=== PATIENT | female | born 1970 | race Caucasian/White ===

== ENCOUNTER 2017-01-09 10:38 | Emergency (ER) | payer OTHER ==
[~2017-01-09] VITALS: Ht 172.7 cm; Wt 123.6 kg
[~2017-01-09 10:38] MED LIST: CHOL5000 PO; LEVO300T2 PO; METO25TA6 PO; MULT-1018 PO; OMEP20TA86 PO
[2017-01-09 10:40] VITALS: BP 186/107; RESP 18; O2SAT 96
--- NOTE | 2017-01-09 10:51 | ED.REPORT ---
HPI-Sore Throat ONLY HPI/PE done Jan 09, 2017 ED Provider: Dr. Jose Castillo D.O. A 46 year old female with a medical history including Kikuchi syndrome, Ann syndrome, hypertension, and a non-malignant right submandibular node presents to the ED with a sore throat onset yesterday. Associated symptoms include ear pressure and hoarse speech. She has had similar symptoms in the past, successfully treated with IV Decadron and Benadryl. Previous similar infections have quickly escalated and resulted in the patient being intubated. Nursing Notes Stated Complaint: THROAT PAIN Chief Complaint: ENT & Mouth Nursing Notes Reviewed: Yes Allergies: Coded Allergies: dexamethasone (Verified Adverse Reaction, Intermediate, 05/17/16) RASH AND ITCH-NEED PREMED WITH BENADRYL IF RECEIVING. methylprednisolone (Verified Adverse Reaction, Intermediate, HIVES, ) promethazine (Verified Adverse Reaction, Intermediate, NAUSEA AND VOMITTING, 05/17/16) Scheduled Cholecalciferol (Vitamin D3) (Vitamin D3) 5,000 Unit Capsule 5,000 UNIT PO DAILY Levothyroxine (Synthroid) 300 Mcg Tablet 300 MCG PO DAILY Metoprolol Tartrate (Metoprolol Tartrate) 25 Mg Tablet 12.5 MG PO BID Multivitamin (Multi Vitamin Daily) 1 Each Tablet 1 EACH PO DAILY Omeprazole (Omeprazole) 20 Mg Tablet.dr 20 MG PO DAILY General Time Seen by MD: 10:50 Chief Complaint Sore throat Hx Obtained From: Patient Arrived By: Walk-in Onset Occurred: Yesterday Symptom Duration: Since onset Location: : Tonsil left: Tonsil right Quality: Painful Severity: Current: Moderate Severity: Maximum: Moderate Associated with: Reports: Ear pain/ache (Pressure), Denies: Fever Pertinent Negative: Relieved by nothing Related History: Reports: Adenoidectomy, Immunocompromise, Tonsillectomy Context: Immunization Status General: Unknown Recent Healthcare: No recent doctor visit Similar Sx Previous: Yes Past Medical History Past Medical History 1. Hyperlipidemia. 2. 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 3. Paralyzed right vocal cord. 4. 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 Hypertension 8. Right Submandibular Node, negative for malignancy. Past Surgical History 1. Appendectomy. 2. Total abdominal hysterectomy. 3. Tonsillectomy. 4. Thyroidectomy. Family History Mother who is living with previous [place] 3 earliest age 21 years of age, CVA 3, and cardiac arrest. Father with diabetes mellitus diagnosed in his 70s. Smoking History Never Smoker Social History Alcohol Use: Denies alcohol use Drug Use: Denies drug use Other Social History: Good social support, , Local resident Ambulatory Status Independent Review of Systems Constitutional: Denies: Fever Ears / Nose / Throat: Reports: Earache bilateral (Pressure), Sore throat, Voice change (Hoarse) Respiratory: Denies: Shortness of breath GI: Denies: Vomiting Complete sys rev & neg: except as marked. Physical Exam Initial Vital Signs Vital Signs (First) Date Time Temp Pulse Resp B/P Pulse Ox O2 Delivery O2 Flow Rate FiO2 01/09/17 10:40 36.9 103 18 186/107 96 01/09/17 11:57 Room Air Initial VS: Reviewed Respiratory: Breath sounds normal, Clear to auscultation, No respiratory distress Cardiovascular: Regular rate & rhythm, Heart sounds normal Abdomen / GI: Soft, Non-tender Skin: Warm, Dry, No cyanosis Neurologic: Alert, Oriented, Nonfocal Psychiatric: Mood/affect normal, Behavior normal, Normal thought content General/Constitutional: Awake, Alert, No acute distress ENT: Airway patent, Mucous membranes moist Pharynx / Tonsils / Uvula: Positive: Pharyngeal erythema Right Ear / Mastoid: Positive: Fluid behind TM clear Hoarse voice Head / Eyes: Atraumatic, Normocephalic Right lid lag secondary to Ann syndrome Interpretation & Diagnostics Lab Results Interpretation Result Diagram: 01/09/17 1055 01/09/17 1055 Test 01/09/17 10:55 White Blood Count 5.9th/mm3 (3.8-10.1) Red Blood Count 4.36mil/mm3 (3.90-5.20) Hemoglobin 13.1g/dL (12.0-15.6) Hematocrit 39.3% (35.0-46.0) Mean Corpuscular Volume 90.1fL (81-100) Mean Corpuscular Hemoglobin 30.0pg (27.0-35.0) Mean Corpuscular Hemoglobin Concent 33.3% (32.0-37.0) Red Cell Distribution Width 13.1% (12.3-15.4) Platelet Count 250bil/L (150-400) Neutrophils (%) (Auto) 57.7% (40-74) Lymphocytes (%) (Auto) 34.1% (14-46) Monocytes (%) (Auto) 5.8% (4-12) Eosinophils (%) (Auto) 1.7% (0-5) Basophils (%) (Auto) 0.5% (0-3) Sodium Level 139mEq/L (134-144) Potassium Level 3.6mEq/L (3.5-5.2) Chloride Level 100mEq/L (97-108) Carbon Dioxide Level 26mmol/L (18-29) Blood Urea Nitrogen 9mg/dL (6-24) Creatinine 0.59mg/dL (0.57-1.00) Estimat Glomerular Filtration Rate 157mL/min (>59) Glucose Level 168mg/dL (60-99) Calcium Level 8.1mg/dL (8.5-10.1) Total Bilirubin 0.5mg/dL (0.0-1.2) Aspartate Amino Transf (AST/SGOT) 38U/L (0-50) Alanine Aminotransferase (ALT/SGPT) 53U/L (0-32) Alkaline Phosphatase 74U/L (25-150) C-Reactive Protein 0.7mg/dL (0.0-0.5) Total Protein 7.2g/dL (6.4-8.4) Albumin 4.1g/dL (3.4-5.0) Hold Lund Top Tube Received (Received) X-Ray Interpretation Xray Interpretation: IMPRESSION: No apparent compromise of the airway. No soft tissue mass demonstrated. No foreign body seen. Dictated by: Varun Francis M.D. on 01/09/2017 at 11:45 Study Performed: 2 View X-Ray Ordered: Neck (Soft Tissue) Interpretation / Wet Read by: Interpret - Radiologist Re-Eval/Medical Decision Source of Hx: Old records Re-Evaluation/Progress : Time of Eval: 12:44 Patient Status: Condition improved Re-Evaluation/Progress Note: Patient looks and feels better. Her voice is sharper. Discussed with patient x-ray and lab results, diagnosis, and plan for discharge. Follow-up and return to the ER instructions given. Patient agrees with plan for care and all questions were addressed. Counseled Regarding: Diagnosis, Lab results, Need for follow-up, When/why to return to ED Discharge & Departure Primary Impression: Pharyngitis Pharyngitis/tonsillitis etiology: unspecified etiology Qualified Code: J02.9 - Acute pharyngitis, unspecified Additional Impression: Kikuchi disease Disposition: Home Discharge Condition All VS Reviewed: Yes Condition: Stable Patient Instructions: Pharyngitis (ED) Additional Instructions: Thank you for entrusting us with your care. Please take Augmentin twice daily for ten days, as prescribed. Use the Medrol pack as directed. Premedicate with Benadryl to prevent associated itching. 1-2 Percocet every six hours as needed for pain. Do not drink alcohol, drive, or consume acetaminophen while taking Percocet. Call your Ear, Nose, and Throat surgeon tomorrow for a close follow-up. Call your primary care provider for a follow-up appointment. Return to the ER with any new or worsening symptoms. Your blood pressure was elevated today. Continue taking your blood pressure medication as directed. Keep a close eye on your blood pressure and follow-up with your doctor. You may need your medication or dosage adjusted. Referrals: OTHER,PHYSICIAN (PCP) Emanuel Bales MD Attestation Portions of this note were transcribed by Abby Mao. I, Dr. Castillo, personally performed the history, physical exam, and medical decision-making; I reviewed and confirmed the accuracy of the information in the transcribed note. Signed by: Aide Iglesias, 01/09/2017, 13:03 copies to: Emanuel Bales MD, Todd P DO Jan 09, 2017 10:51 ABBY MAO Jan 09, 2017 11:03
[2017-01-09] MEDS ORDERED: cefTRIAXone Inj 2,000 MG in Dextrose 5% Minibag Plus 50 ML IV ONE (11:00)
[2017-01-09] MEDS ORDERED: Dexamethasone Inj 10 MG in 0.9% Sodium Chloride-Pha MIX 50 ML IV ONE (11:00)
[2017-01-09 11:07] LABS: BASOPHILS % (AUTO) 0.5 % (0-3); EOSINOPHILS % (AUTO) 1.7 % (0-5); MONOCYTES % (AUTO) 5.8 % (4-12); Mean Corpuscular Volume 90.1 fL (81-100); NEUTROPHILS % (AUTO) 57.7 % (40-74); Platelet Count 250 bil/L (150-400)
[2017-01-09] MEDS: HYDROmorphone 0.5 mg/0.5 mL iSecure Syringe IVPUSH PRN ×2 (11:16→13:32)
--- NOTE | 2017-01-09 11:47 | DRSVH ---
PROCEDURE: X-RAY NECK SOFT TISSUE ([id number]) INDICATIONS: sore throat, prior neck surgery TECHNIQUE: 2 views of the neck were acquired. COMPARISON: None. FINDINGS: Airway: The airway appears patent. Soft tissues: Prevertebral soft tissues are normal in thickness. The epiglottis and aryepiglottic f olds appear normal. No soft tissue gas. Bones: No suspicious bony lesions. Visualized cervical spine is normally aligned. IMPRESSION: No apparent compromise of the airway. No soft tissue mass demonstrated. No foreign body s een. Dictated by: Varun Francis M.D. on 01/09/2017 at 11:45 Approved by: Varun Francis M.D. on 01/09/2017 at 11:46
[2017-01-09 11:57] VITALS: BP 152/94; PULSE 93; RESP 16; O2SAT 97
[2017-01-09] MEDS ORDERED: MeTOProlol 1 mg/mL 5 mL Inj IVPUSH SCH (12:30)
[2017-01-09 13:32] VITALS: BP 130/80; PULSE 74; RESP 16; O2SAT 96
== END 2017-01-09 12:54 | disposition home or self-care (01) ==
LOC: SED 10:38
DX: J02.9 Acute pharyngitis, unspecified (principal); I88.1 Chronic lymphadenitis, except mesenteric; I10 Essential (primary) hypertension; E78.5 Hyperlipidemia, unspecified; Z88.8 Allergy status to other drugs, medicaments and biological substances
CPT/HCPCS: 36415; 70360; 80053; 85025; 86140; 96365; 96375; 99285; J0696; J1100; J1170; J1200

== ENCOUNTER 2017-01-14 14:07 | Inpatient (IN) | payer OTHER ==
[~2017-01-14] VITALS: Ht 172.7 cm; Wt 124.4 kg
[2017-01-14 14:13] VITALS: BP 144/95; RESP 20; O2SAT 96
[2017-01-14] MEDS ORDERED: 0.9% Sodium Chloride 1,000 ML IV ONE (15:45)
[2017-01-14] MEDS ORDERED: Dexamethasone Inj 10 MG in 0.9% Sodium Chloride-Pha MIX 50 ML IV ONE (15:45)
[2017-01-14] MEDS ORDERED: Ampicillin-Sulbactam Inj 3,000 MG in 0.9% Sodium Chloride 100 ML IV ONE (15:45)
--- NOTE | 2017-01-14 15:45 | ED.REPORT ---
HPI-General Illness Date of Service Jan 14, 2017 ED Provider: Gabriel Blum MD Pt is a 46 y/o female w/ a hx of Kikuchi syndrome (necrotizing lymphadenitis) , Ann syndrome, hypertension, presenting to the ED c/o right-sided jaw/ facial pain and swelling onset 5 days ago. Of note, the pt had a tonsillectomy and biopsy performed in July 2016 which was benign. She was seen here in the ED on 01/09/[address] Castillo and diagnosed with pharyngitis and started on Decadron and Augmentin which she states normally resolves her symptoms. She has been taking these medications as directed and has not noticed much improvement. Her throat condition has required intubation multiple times in the past and normally progresses quite quickly. She denies fever, dysphagia, or trouble breathing at this time. The pt is seen by ENT physician Dr. Berkowitz at . Nursing Notes Stated Complaint: RIGHT SIDE JAW PAIN Chief Complaint: ENT & Mouth Nursing Notes Reviewed: Yes Allergies: Coded Allergies: dexamethasone (Verified Adverse Reaction, Intermediate, 05/17/16) RASH AND ITCH-NEED PREMED WITH BENADRYL IF RECEIVING. methylprednisolone (Verified Adverse Reaction, Intermediate, HIVES, ) promethazine (Verified Adverse Reaction, Intermediate, NAUSEA AND VOMITTING, 05/17/16) Scheduled Ascorbic Acid (Vitamin C) 1,000 Mg Tab.chew 1,000 MG PO DAILY Cholecalciferol (Vitamin D3) (Vitamin D3) 5,000 Unit Capsule 5,000 UNIT PO DAILY Hydrochlorothiazide (Hydrochlorothiazide) 25 Mg Tablet 25 MG PO DAILY Levothyroxine (Synthroid) 300 Mcg Tablet 300 MCG PO DAILY Metoprolol Tartrate (Metoprolol Tartrate) 25 Mg Tablet 25 MG PO BID Multivitamin (Multi Vitamin Daily) 1 Each Tablet 1 EACH PO DAILY Omeprazole (Omeprazole) 20 Mg Tablet.dr 20 MG PO DAILY General Time Seen by MD: 15:16 Chief Complaint Other (Facial swelling/pain) Hx Obtained From: Patient, Spouse Arrived By: Walk-in Sudden in Onset?: No Onset Occurred: 5 days ago Symptom Duration: Since onset Location: : Face: Neck Quality: Painful Severity: Current: Mild Severity: Maximum: Mild Recent Healthcare: Recent doctor visit, Previous diagnosis, Prior workup Similar Sx Previous: Yes Past Medical History Past Medical History Notes: The pt is seen by ENT physician Dr. Berkowitz at . Past Medical History 1. Hyperlipidemia. 2. 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 Hypertension 8. Right Submandibular Node, negative for malignancy. Past Surgical History 1. Appendectomy. 2. Total abdominal hysterectomy. 3. Tonsillectomy - with biopsy - benign 4. Thyroidectomy. Family History Mother who is living with previous [place] 3 earliest age 21 years of age, CVA 3, and cardiac arrest. Father with diabetes mellitus diagnosed in his 70s. Smoking History Never Smoker Social History Alcohol Use: Denies alcohol use Drug Use: Denies drug use Other Social History: Good social support, , Local resident Ambulatory Status Independent Review of Systems + Right-sided facial and jaw swelling and pain Full Review of Systems Constitutional: Denies: Chills, Fever Respiratory: Denies: Shortness of breath GI: Denies: Dysphagia Complete sys rev & neg: except as marked. Physical Exam Vital Signs Vital Signs Date Time Temp Pulse Resp B/P Pulse Ox O2 Delivery O2 Flow Rate FiO2 01/14/17 14:13 36.0 88 20 144/95 96 Room Air Initial VS: Reviewed, Vital signs normal Respiratory: Breath sounds normal, Clear to auscultation, No respiratory distress Cardiovascular: Regular rate & rhythm, Heart sounds normal, Intact distal pulses Abdomen / GI: Soft, Non-tender Extremities: Vascular intact, Neuro intact, No swelling, No tenderness Skin: Warm, Dry, No cyanosis Neurologic: Alert, Oriented, Nonfocal Psychiatric: Mood/affect normal, Behavior normal, Normal thought content General/Constitutional: Awake, Alert, No acute distress, Cooperative, Not toxic appearing Head / Eyes: Atraumatic, Normocephalic, PERRL Swelling on right side of face with tenderness which extends up into the zygoma. Mild warmth ENT: Atraumatic, Airway patent, Mucous membranes moist, Pharynx NL, Gums/ dentition NL Absent first molar on right lower. Neck: Atraumatic, Supple, No meningismus, Full range of motion Postoperative changes on the neck, right more prominent than left. Interpretation & Diagnostics Lab Results Interpretation Result Diagram: 01/14/17 1602 01/14/17 1602 Test 01/14/17 16:02 White Blood Count 12.1th/mm3 (3.8-10.1) Red Blood Count 4.77mil/mm3 (3.90-5.20) Hemoglobin 14.4g/dL (12.0-15.6) Hematocrit 43.0% (35.0-46.0) Mean Corpuscular Volume 90.1fL (81-100) Mean Corpuscular Hemoglobin 30.2pg (27.0-35.0) Mean Corpuscular Hemoglobin Concent 33.5% (32.0-37.0) Red Cell Distribution Width 13.4% (12.3-15.4) Platelet Count 316bil/L (150-400) Neutrophils (%) (Auto) 63.3% (40-74) Lymphocytes (%) (Auto) 27.8% (14-46) Monocytes (%) (Auto) 7.2% (4-12) Eosinophils (%) (Auto) 1.0% (0-5) Basophils (%) (Auto) 0.2% (0-3) Erythrocyte Sedimentation Rate 18mm/hr (0-32) Sodium Level 138mEq/L (134-144) Potassium Level 4.4mEq/L (3.5-5.2) Chloride Level 97mEq/L (97-108) Carbon Dioxide Level 26mmol/L (18-29) Blood Urea Nitrogen 20mg/dL (6-24) Creatinine 0.59mg/dL (0.57-1.00) Estimat Glomerular Filtration Rate 157mL/min (>59) Glucose Level 98mg/dL (60-99) Calcium Level 8.4mg/dL (8.5-10.1) Total Bilirubin 0.3mg/dL (0.0-1.2) Aspartate Amino Transf (AST/SGOT) 41U/L (0-50) Alanine Aminotransferase (ALT/SGPT) 56U/L (0-32) Alkaline Phosphatase 68U/L (25-150) Total Protein 7.8g/dL (6.4-8.4) Albumin 4.4g/dL (3.4-5.0) Hold Lund Top Tube Received (Received) Re-Eval/Medical Decision Med Decision/Clinical Course She appears well and airway is not at all seem threatening presently. History is however concerning. We started IV Unasyn and IV dexamethasone. Patient will be admitted to the hospitalist service. ENT has requested a call if the patient shows any signs of having a threatened airway. Source of Hx: Old records Time of Eval: 16:38 Re-Evaluation/Progress Note: Pt rechecked. Informed pt of need for admission. Pt understands and agrees with plan for admission. All questions addressed. Consultation #1: Referral / Consult Name: Yariel Saul MD Consulted With: ENT Call Returned at: 15:40 Hearing Therapy Director: Agrees with eval, Agrees with plan Note: Agrees with plan for admit for IV antibiotics and observation. He would like to be consulted if there is airway compromise. Consultation #2: Referral / Consult Name: Gregory Adamson MD Consulted With: Hospitalist Call Returned at: 16:39 Hearing Therapy Director: Will see patient, Agrees with eval, Agrees with plan, Accepts admit Counseled Regarding: Diagnosis, Lab results, Need for admission Discharge & Departure Primary Impression: Facial cellulitis Additional Impression: Kikuchi disease Disposition: ADMITTED TO HOSPITAL Discharge Condition All VS Reviewed: Yes Condition: Stable Referrals: OTHER,PHYSICIAN (PCP) (Family) Scribe Attestation Portions of this note were transcribed by Edgardo Coulter. I, Dr. Blum personally performed the history, physical exam and medical decision-making; I reviewed and confirmed the accuracy of the information in the transcribed note. Signed by Aide Chavez, 01/14/17 - 1645 Gabriel Blum MD Jan 14, 2017 15:45 EDGARDO COULTER Jan 14, 2017 15:51
[2017-01-14] MEDS: HYDROmorphone 1 mg/mL Inj IVPUSH PRN ×2 (16:04→16:46)
[2017-01-14 16:08] LABS: BASOPHILS % (AUTO) 0.2 % (0-3); MONOCYTES % (AUTO) 7.2 % (4-12); Mean Corpuscular Hemoglobin 30.2 pg (27.0-35.0); Mean Corpuscular Volume 90.1 fL (81-100); NEUTROPHILS % (AUTO) 63.3 % (40-74); Platelet Count 316 bil/L (150-400)
[2017-01-14] MEDS ORDERED: METO25TA6 PO (16:18)
[2017-01-14] MEDS ORDERED: HYDR25TA4 PO (16:20)
[2017-01-14] MEDS ORDERED: ASCO100089 PO (16:21)
[2017-01-14 16:30] LABS: ERYTHROCYTE SEDIMENTATION RATE 18 mm/hr (0-32)
--- NOTE | 2017-01-14 16:40 | NUR ---
all steroids. Addendum: 01/14/17 at 1641 by SERA CARRION RN Amended: Links added.
--- NOTE | 2017-01-14 16:41 | NUR ---
All steroids Addendum: 01/14/17 at 1641 by SERA CARRION RN Amended: Links added.
[2017-01-14 16:46] VITALS: BP 139/81; PULSE 81; RESP 17; O2SAT 94
[2017-01-14] MEDS ORDERED: Alum-Mag Hydrox-Simeth 30 mL Suspension PO PRN (16:50)
[2017-01-14 16:57] VITALS: BP 139/81; PULSE 81; RESP 17; O2SAT 94
[2017-01-14 17:05] VITALS: BP 138/79; PULSE 74; RESP 18; O2SAT 96
--- NOTE | 2017-01-14 17:30 | PCM.HPMED ---
Subjective Date of Service Jan 14, 2017 Primary Provider: Admitting Physician: Beto Stuart MD Primary Care Physician: Other,Physician Attending Physician: Beto Stuart MD Chief Complaint: Right face swelling and pain History of Present Illness: This is a 46 y/o female with past medical history of Kikuchi -riya syndrome (necrotizing lymphadenitis), hypothyroidism, Ann syndrome, hypertension, presenting to the ED c/o right-sided jaw/facial pain and swelling for 5 days or so. She was seen here in the ED on 01/09/17 was diagnosed with pharyngitis and sent home on Decadron and Augmentin. She has been taking these medications as directed and has not noticed much improvement. Her throat condition has required intubation multiple times in the past. Patient stated her airway can get obstructed very quicly . ENT Dr. Yariel Saul was contacted by ER physiscin and remained available for consultation should that become necessary She denies fever, dysphagia, shortness of breath , fever, chills, nausea, vomiting, diarrhea. Review of Systems: A comprehensive reviewed x 12 points is negative except for swelling as described above in history of present illness . Allergies Coded Allergies: dexamethasone (Verified Adverse Reaction, Intermediate, 05/17/16) RASH AND ITCH-NEED PREMED WITH BENADRYL IF RECEIVING. methylprednisolone (Verified Adverse Reaction, Intermediate, HIVES, ) promethazine (Verified Adverse Reaction, Intermediate, NAUSEA AND VOMITTING, 05/17/16) Home Medications Cholecalciferol (Vitamin D3) (Vitamin D3) 5,000 Unit Capsule 5,000 UNIT PO DAILY Levothyroxine (Synthroid) 300 Mcg Tablet 300 MCG PO DAILY Metoprolol Tartrate (Metoprolol Tartrate) 25 Mg Tablet 12.5 MG PO BID Multivitamin (Multi Vitamin Daily) 1 Each Tablet 1 EACH PO DAILY Omeprazole (Omeprazole) 20 Mg Tablet.dr 20 MG PO DAILY PMH 1. Hyperlipidemia. 2. 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 Hypertension 8. Right Submandibular Node, negative for malignan Surgical History 1. Appendectomy. 2. Total abdominal hysterectomy. 3. Tonsillectomy - with biopsy - benign 4. Thyroidectomy. Family History Mother has coronary artery disease and type II diabetes father has type II diabetes Social History Hx Alcohol Use: Yes (occ) Hx Substance Use: No Hx Tobacco Use: No Smoking Status: Never Smoker Living Arrangement: with Family Exam Vital Signs Vital Sign - Last Date Time Temp Pulse Resp B/P Pulse Ox O2 Delivery O2 Flow Rate FiO2 01/14/17 16:57 36.0 81 17 139/81 94 Room Air Exam Gen : well nourished female . NAD . Head / Eyes: Atraumatic, Normocephalic, PERRL. There i welling on right side of face with moderate tenderness Neck : Supple, traches is midline . . No stridor Respiratory: Clear to auscultation b/l, No respiratory distress Cardiovascular: Regular rate & rhythm, No gallop, no murmur Abdomen / GI: Soft, Non-tender, non distended. Extremities: Vascular intact, Neuro intact, No swelling, No tenderness Skin: Warm, Dry, No cyanosis Neurologic: Alert, Oriented x 3, Grossly Non focal Psychiatric: Mood/affect normal, Behavior normal, Normal thought content Lab and Diagnostics Result Diagram: 01/14/17 1602 01/14/17 1602 X-Rays, CTs and MRIs Neck X-ray : No apparent compromise of the airway. No soft tissue mass demonstrated. No foreign body seen Assessment & Plan 1. Facial Cellulitis : patient failed outpatient antibiotics 2. H/o Kichiki-Fujumoto Disease with flair up. 3. Hypertension : Controlled 4. Hypothyroidism : On hormonal supplement 5. History of thyroid cancer : On remission Admit to inpatient for neck lymphedema and cellulitis . This look more Hichuki- Riya flair up with overt cellulitis . Close monitoring is needed Start empiric Unasyn for facial cellulitis . Obtain blood culture Dexamethasone 10 mg IV every 8H. Benadryl 50 mg IV 15 minutes prior to dexamethasone injection. Patient reported allergic ( itching ) with all sort of steroid Dilated 0.5 mg IV every 3 hours as needed for pain. ENT Dr. Yariel Saul was contacted by ER physician and remained available for consultation should that become necessary. Patient doing fine at this time and has no evidence or symptom of airway compromise. She is on room air Heparin for DVT prophylaxis VTE Prophylaxis: Sub-Q Heparin (Unfractionated) Resuscitation Status: CPR: Attempt Resuscitation Time spent 55 minutes Gregory Adamson MD Jan 14, 2017 17:30
--- NOTE | 2017-01-14 17:46 | NUR ---
Arrived She arrived to [facility] at 1700. She was settled into the room and her vitals taken and assessment completed. notified of her arrival. She is eager to eat something. is in the room. Care continues.
[2017-01-14] MEDS ORDERED: Dexamethasone Inj 10 MG in 0.9% Sodium Chloride-Pha MIX 50 ML IV SCH (17:50)
[2017-01-14] MEDS ORDERED: HYDROmorphone 0.5 mg/0.5 mL iSecure Syringe IVPUSH PRN (18:50)
[2017-01-14] MEDS: Heparin 5,000 Unit/mL Inj SUBQ SCH (20:51)
[2017-01-14] MEDS: Ascorbic Acid 500 mg Tablet PO SCH (20:52)
[2017-01-14 21:00] VITALS: BP 138/88; PULSE 79; RESP 20; O2SAT 92
[2017-01-14] MEDS: HYDROmorphone 0.5 mg/0.5 mL iSecure Syringe IVPUSH PRN ×2 (21:49→23:23)
[2017-01-14] MEDS ORDERED: MethylprednisoLONE Sodium Succinate 40 mg/mL Inj IVPUSH SCH (22:30)
[2017-01-14] MEDS: Ampicillin-Sulbactam Inj 1,500 MG in 0.9% Sodium Chloride 50 ML IV SCH (22:36)
[2017-01-15] MEDS: Dexamethasone Inj 10 MG in 0.9% Sodium Chloride-Pha MIX 50 ML IV SCH ×3 (01:06→16:37)
[2017-01-15] MEDS: HYDROmorphone 0.5 mg/0.5 mL iSecure Syringe IVPUSH PRN ×3 (01:25→07:54)
[2017-01-15 01:27] VITALS: BP 147/89; PULSE 75; RESP 20; O2SAT 99
[2017-01-15] MEDS: Ampicillin-Sulbactam Inj 1,500 MG in 0.9% Sodium Chloride 50 ML IV SCH ×2 (04:36→10:33)
--- NOTE | 2017-01-15 04:50 | NUR ---
Pain This evening patient has been complaining of 8-9/10 right sided cheek pain that has been very difficult to control. Initial order for 0.5mg Dilaudid IVP Q3 hours was given, and upon reassessment patient states no relief and worsening of pain. Night hospitalist notified and ordered 1-2mg IVP Dilaudid Q3 hours. 1mg Dilaudid was given, but patient stated no relief upon reassessment. At next administration time 2mg of Dilaudid was given, and pt states that she is starting to receive some relief, 6-7/10 pain. Patient is A&OX3. MUD JACK NOZZLEMAN applied. Will continue to monitor, and continue Q1 hour checks.
[2017-01-15] MEDS: LEVOTHYROXINE PO SCH (05:57)
[2017-01-15 06:08] LABS: BASOPHILS % (AUTO) 0.1 % (0-3); EOSINOPHILS % (AUTO) 0.1 % (0-5); MONOCYTES % (AUTO) 1.7 % (4-12); Mean Corpuscular Hemoglobin 30.2 pg (27.0-35.0); Mean Corpuscular Volume 90.8 fL (81-100); Platelet Count 294 bil/L (150-400)
[2017-01-15 06:10] VITALS: BP 120/69; PULSE 60; RESP 20; O2SAT 96
[2017-01-15] MEDS ORDERED: Pantoprazole 40 mg ER24 Tablet PO SCH (07:30)
[2017-01-15] MEDS: Heparin 5,000 Unit/mL Inj SUBQ SCH ×2 (08:27→21:11)
[2017-01-15] MEDS: HYDROmorphone 1 mg/mL Inj IVPUSH PRN ×5 (10:33→23:12)
[2017-01-15 12:48] VITALS: BP 130/75; PULSE 71; RESP 20; O2SAT 96
--- NOTE | 2017-01-15 12:49 | NUR ---
Pain Pt has constant pain in her right jaw and cheek in parotid gland area. Have been administering IVP Dilaudid Q 3 hrs, as ordered. She states this helps relieve the sharp pain, but still has significant underlying discomfort. Pt states it is nerve pain, so she declined an ice pack or heat pack. No pain in mastoid area at this time. Pt ordering soft foods to facilitate ease of chewing. Pt remains on 2 lpm oxygen; she is concerned about possible airway compromise due to facial swelling. Care continues.
--- NOTE | 2017-01-15 15:19 | NUR ---
Social Work: Screening/Readiness for Discharge: Data: Pt is a 46 year old female admitted for facial cellulitis on 01/14/17 per H&P. Pts insurance is [facility] [employer] [facility] and [employer]. PCP is Dr. Frazier at [facility]. SW met with pt and pts Seth [phone] at bedside to discuss discharge planning, SW role explained. Pt alert and oriented x3. EMR reviewed. Pt resides in [place] with her . Pt is independent at baseline, uses no DME and drives. SW discussed DPOA/Advance Directive with pt and , encouraged pt to complete DPOA and bring copy into the hospital. No anticipated discharge needs. Pt to discharge home with to transport via POV. SW continue to follow as needs arise. Assessment: Pt who is independent at baseline. Plan: Pt independent at base. No anticipated discharge needs. SW continues to follow should needs arise. Roxann Vazquez, EMPLOYMENT LAW ATTORNEY
--- NOTE | 2017-01-15 17:24 | PCM.PNMED ---
Subjective Date of Service Jan 15, 2017 Subjective mild facial asymmetry ,no sign of cellulitis,no erythema or tenderness.patient says she has pain, patient very defensive and reluctant to give more information on her symptoms. She asks for infectious disease specialist evaluation Exam Vital Signs Vital Sign - Last Date Time Temp Pulse Resp B/P Pulse Ox O2 Delivery O2 Flow Rate FiO2 01/15/17 12:48 36.5 71 20 130/75 96 Nasal Cannula 2.00 Intake and Output 01/14/17 01/14/17 01/15/17 Cumulative From/Thru 15:00 23:00 07:00 01/14/17 14:13 - 01/14/17 18:48 Intake Total 1251 ml 1251 ml Output Total 600 ml 600 ml Balance 651 ml 651 ml Intake Oral 200 ml 200 ml IV Total 1051 ml 1051 ml Output Urine Total 600 ml 600 ml # Bowel Movements 0 0 Exam ead / Eyes: Atraumatic, Normocephalic, PERRL. There i welling on right side of face with no tenderness Neck : Supple, traches is midline . . No stridor Respiratory: Clear to auscultation b/l, No respiratory distress Cardiovascular: Regular rate & rhythm, No gallop, no murmur Abdomen / GI: Soft, Non-tender, non distended. Extremities: Vascular intact, Neuro intact, No swelling, No tenderness Skin: Warm, Dry, No cyanosis Neurologic: Alert, Oriented x 3, Grossly Non focal Psychiatric: Mood/affect normal, Behavior normal, Normal thought content IVs and Medications Medications Reviewed: Medications were reviewed in detail Lab and Diagnostics Result Diagram: 01/15/1753401/15/1735 X-Rays, CTs and MRIs Neck X-ray : No apparent compromise of the airway. No soft tissue mass demonstrated. No foreign body seen Assessment & Plan #. Suspected Facial Cellulitis vs lymphedema versus Kichiki-Fujumoto Disease with flair up.: patient failed outpatient antibiotics -Not too sure if there is any cellulitis. Patient states she presents like this always when she gets cellulitis . She states she always gets treated with double antibiotic, Unasyn and vancomycin. She is very unhappy that vancomycin is not initiated -Infectious disease consulted -Continue antibiotics and steroid awaiting ID eval 3. Hypertension : Controlled 4. Hypothyroidism : On hormonal supplement 5. History of thyroid cancer : On remission ENT Dr. Yariel Saul was contacted by ER physician and remained available for consultation should that become necessary. Patient doing fine at this time and has no evidence or symptom of airway compromise. She is on room air Heparin for DVT prophylaxis VTE Prophylaxis: Sub-Q Heparin (Unfractionated) VTE Mechanical Devices: Intermittant Pneumatic CD Resuscitation Status: CPR: Attempt Resuscitation Zia Calixto MD Jan 15, 2017 17:23
[2017-01-15] MEDS: Pantoprazole 40 mg ER24 Tablet PO SCH (17:43)
[2017-01-15 18:30] LABS: APPEARANCE,URINE CLEAR (CLEAR,HAZY); COLOR,URINE STRAW (YELLOW); OCCULT BLOOD,URINE NEGATIVE (NEGATIVE); PH,URINE 6.5 (5.0-8.0); UROBILINOGEN,URINE NORMAL (NORMAL)
[2017-01-15] MEDS ORDERED: Vancomycin Inj 2,250 MG in 0.9% Sodium Chloride 500 ML IV ONE (20:00)
--- NOTE | 2017-01-15 20:33 | PCM.CONPHA ---
Subjective Date of Service: Jan 15, 2017 Right face swelling and pain Reason for Pharmacy Consult: Vancomycin Dosing Objective Vital Signs Date Time Temp Pulse Resp B/P Pulse Ox O2 Delivery O2 Flow Rate FiO2 01/15/17 12:48 36.5 71 20 130/75 96 Nasal Cannula 2.00 01/15/17 10:39 Supplement Oxygen 01/15/17 06:10 36.5 60 20 120/69 96 Nasal Cannula 2.00 01/15/17 01:27 36.0 75 20 147/89 99 Nasal Cannula 2.00 01/14/17 21:00 36.8 79 20 138/88 92 Room Air Intake and Output 01/13/17 01/14/17 01/15/17 00:00 00:00 00:00 Intake Total 1251 ml Output Total 600 ml Balance 651 ml Weight (Kilograms): 122.100 Height (Feet): 5 Height (Inches): 8.00 Test 01/14/17 16:02 01/15/17 05:35 01/15/17 17:58 Erythrocyte Sedimentation Rate 18mm/hr (0-32) Total Bilirubin 0.3mg/dL (0.0-1.2) Aspartate Amino Transf (AST/SGOT) 41U/L (0-50) Alanine Aminotransferase (ALT/SGPT) 56U/L (0-32) Alkaline Phosphatase 68U/L (25-150) Total Protein 7.8g/dL (6.4-8.4) Albumin 4.4g/dL (3.4-5.0) Hold Lund Top Tube Received (Received) White Blood Count 8.7th/mm3 (3.8-10.1) Red Blood Count 4.47mil/mm3 (3.90-5.20) Hemoglobin 13.5g/dL (12.0-15.6) Hematocrit 40.6% (35.0-46.0) Mean Corpuscular Volume 90.8fL (81-100) Mean Corpuscular Hemoglobin 30.2pg (27.0-35.0) Mean Corpuscular Hemoglobin Concent 33.3% (32.0-37.0) Red Cell Distribution Width 13.0% (12.3-15.4) Platelet Count 294bil/L (150-400) Neutrophils (%) (Auto) 82.0% (40-74) Lymphocytes (%) (Auto) 15.6% (14-46) Monocytes (%) (Auto) 1.7% (4-12) Eosinophils (%) (Auto) 0.1% (0-5) Basophils (%) (Auto) 0.1% (0-3) Sodium Level 136mEq/L (134-144) Potassium Level 4.5mEq/L (3.5-5.2) Chloride Level 97mEq/L (97-108) Carbon Dioxide Level 25mmol/L (18-29) Blood Urea Nitrogen 15mg/dL (6-24) Creatinine 0.46mg/dL (0.57-1.00) Estimat Glomerular Filtration Rate 209mL/min (>59) Glucose Level 179mg/dL (60-99) Calcium Level 7.6mg/dL (8.5-10.1) Urine Color Straw (YELLOW) Urine Appearance Clear (CLEAR,HAZY) Urine pH 6.5 (5.0-8.0) Urine Specific [place] 1.005 (1.003-1.035) Urine Protein Negativemg/dL (NEG,TRACE) Urine Glucose (UA) Negativemg/dL (NEGATIVE) Urine Ketones Negativemg/dL (NEGATIVE) Urine Occult Blood Negative (NEGATIVE) Urine Nitrite Negative (NEGATIVE) Urine Bilirubin Negative (NEGATIVE) Urine Urobilinogen Normalmg/dL (NORMAL) Urine Leukocyte Esterase Negative (NEGATIVE) Urine RBC 0-2/hpf (0-2) Urine WBC 0-5/hpf (0-5) Urine Epithelial Cells None/hpf (NONE-MOD) Urine Crystals None seen (NONE SEEN) Urine Bacteria None/hpf (NONE-FEW) Urine Hyaline Casts None/lpf (NONE) Urine Granular Casts None seen (NONE SEEN) Urine Waxy Casts None seen (NONE SEEN) Urine Red Blood Cell Casts None seen (NONE SEEN) Urine White Blood Cell Casts None seen (NONE SEEN) Urine Mucus None seen (None Seen) Urine Trichomonas None seen (NONE SEEN) Urine Yeast None (NONE SEEN) Urinalysis Comment None Urine Culture Reflexed Not indicated Assessment/Plan Assessment/Plan Vanco per Rx Indication: Possible Cellulitis (ID consulted) Trough Goal: 10-15; Vd 73 LD 2250mg then 2000mg q12h Draw trough prior to 4th dose on 01/17/17 @ 0830 am Jose Russo PharmD Jan 15, 2017 20:33
[2017-01-15 20:34] VITALS: BP 137/77; PULSE 70; RESP 20; O2SAT 96
[2017-01-15] MEDS: Vancomycin Dose per Pharmacist XX SCH (21:10)
[2017-01-15] MEDS: Ascorbic Acid 500 mg Tablet PO SCH (21:11)
[2017-01-15] MEDS: Ampicillin-Sulbactam Inj 3,000 MG in 0.9% Sodium Chloride 50 ML IV SCH (23:48)
[2017-01-16] MEDS: Dexamethasone Inj 10 MG in 0.9% Sodium Chloride-Pha MIX 50 ML IV SCH ×3 (00:20→17:26)
--- NOTE | 2017-01-16 01:06 | CONS ---
[address] [address] CONSULTATION REPORT PATIENT: MARVEL COREA : 1970 MR#: [id number] ADMIT: 01/14/2017 JOB ID: [id number] DATE OF SERVICE: 01/15/2017 REASON FOR CONSULTATION: Possible right facial or neck infection, Kikuchi syndrome. I thank Dr. Adamson for this timely consult. HISTORY OF PRESENT ILLNESS: The patient has an incredibly complex past medical history which ties into her current presentation. She reports that as a teenager she developed thyroid cancer which required multiple thyroid surgeries, including thyroidectomy, right radical neck dissection, and I-131 thyroid ablation. 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 The patient has had numerous episodes of right facial and jaw pain which have been treated in the past with a combination of IV vanco, IV Unasyn and Decadron. The most recent of these exacerbations occurred last week and led her to the emergency department on January 09, where she was evaluated and started a combination of Decadron and Augmentin. Despite taking his medicine, she has noticed increasing erythema of the right side of the face which is quite painful and also noticed some swelling in the right side of the neck and an associated change in her voice. These are all worrisome symptoms patient in the past such episodes have led even to respiratory difficulties and intubation. She also notes that in the past she has occasional required very prolonged courses of antibiotics to deal with infections of the right face, neck and lymph node area. At the time of this admission on January 14, following the failure of the Decadron and Augmentin as an outpatient, the patient had no fevers, chills or significant sweats. She had noticed a change in the voice and the right facial erythema, tenderness and pain. She did not have significant cough, shortness of breath, chest pain or GI symptoms. PAST MEDICAL HISTORY: 1. Thyroid carcinoma, status post multiple surgeries, I-131 radiation and eventual thyroidectomy. 2. 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 3. History of Kikuchi syndrome with possible relapses. 4. 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 5. Hyperlipidemia. 6. Endometriosis. 7. Hypertension. 8. Resection of right submandibular node which found lymphoid hyperplasia, but not malignancy. That was done in July 2016. SOCIAL HISTORY: The patient is a nonsmoker. She lives with her in the local area. She works as a nurse here at [employer]. She drinks alcohol occasionally. FAMILY HISTORY: Notable for coronary artery disease in her mother, and both mother and father have diabetes. There is no family history, including her parents, grandparents or siblings, of tuberculosis. REVIEW OF SYSTEMS: Was done. At this point, the patient has right-sided headache which comes with these episodes. There is warmth and tenderness which spreads from the right ear all the way to the midline of the face and down to and involving the mandible. Below the mandible there a sense of fullness but without the redness or tenderness above the mandible. The patient has no acute visual complaint but she has chronic Ann's syndrome. No sore throat and no trouble swallowing at this point. No significant cough, shortness of breath or chest pain. No nausea, vomiting, diarrhea, dysuria, swelling of the joints or skin rash, except that on the right face. Review of systems otherwise negative. PHYSICAL EXAMINATION: Reveals an afebrile woman in no acute distress. She has been afebrile since admission, 36.5 temperature, pulse 71, respiratory rate 20, blood pressure 120/75, saturating 96% on 2 L, though when I examined her actually she had just taken her oxygen off after going to the bathroom and she was not short of breath, but I do not have an O2 sat off oxygen yet. Mental status is clear. Examination of the head reveals evidence of the right radical neck. The patient also has a right Ann's syndrome. Conjunctivae and sclerae otherwise normal. Oral cavity without thrush, hairy leukoplakia or pharyngitis. The right face is moderately erythematous as compared to the left. There are no bullae and no evidence of furuncles or carbuncles. The areas is modestly warmer than the left side of the face. The right neck shows evidence of the right neck dissection. There is one pea size lymph node just below the mid mandible on the right, but nothing else as the patient's lymph nodes have been largely removed. Her lungs are clear to auscultation posteriorly. Cardiac tones regular rate and rhythm without murmur. Abdomen: Soft and nontender without hepatosplenomegaly or ascites. No suprapubic fullness. No Wade catheter. The joints are without evidence of synovitis. There is no significant peripheral edema. Peripheral pulses are excellent. Patient is grossly intact neurologically and she has of course no palpable thyroid. LABORATORIES: Include white count 6000 in the emergency department on January 09; ross to 12,000 yesterday, 8000 today. She has 82% segs today. She did not have that before and I think that reflects the use of high-dose steroids. Creatinine 0.46. LFTs notable for an ALT of 56, albumin 4.4, CRP was 0.7 and that was done on January 09 and not repeated. Urinalysis has not been repeated this admission. We note from prior admissions her hep C is negative, but that was last done several months ago. In reviewing her micro we have two negative blood cultures from this admission. Back in June a throat culture did grow group G strep, which is interesting. IMAGING: Includes an x-ray of the neck that was done on January 09 and shows no evidence of compromise of the airway and no foreign body was noted. In reviewing notes from the patient's ENT physician from this last July, in July the patient had lingular tonsillar hypertrophy with right submandibular adenopathy, and for that reason underwent a biopsy. Dr. Bales was concerned at that time of course because she has this history of thyroid cancer it could be recurrence or it could be the Kikuchi syndrome which she had been diagnosed with at the [facility]. That biopsy actually eventually came back and revealed enlarged lymph node with prominent lymphoid hyperplasia, negative for malignancy and atypical cells. IMPRESSION: This is indeed a confusing case. The patient has history of thyroid cancer status post multiple surgeries and a right radical neck. She also has apparent history of Kikuchi syndrome which was made at the [facility] several years ago on the basis of biopsies and other studies they did at that time. She now presents with one in a series of recurrences of right facial erythema, some right neck pain and alteration in the voice which is concerning to her as prior episodes of this have resulted in very significant morbidity, even requiring intubation and/or prolonged courses of antibiotics. The patient tells me that in the past she has gotten better from similar episodes with a combination of vanc, and Unasyn and Decadron, though it is not entirely clear to me what the intent of that regimen is as the vanco would add little to the Unasyn except the coverage of methicillin-resistant Staphylococcus aureus, which apparently has never been isolated in this case. One consideration here is that she is having recurrent streptococcal infection of the right face as the patient does have impaired lymphatic and venous drainage of the right face status post her previous multiple surgeries and right radical neck. I do note that last year group G strep was isolated from her throat and I wonder if some of this could be recurrent beta hemolytic streptococcal infection. Another possibility is of course that this is in some way recurrence of her Kikuchi syndrome, but she does not primarily have lymphadenopathy really, but rather something which appears to be cellulitic as the primary issue at this time. The possibility of some other completely novel diagnosis, such as lupus, certainly exists here as well. Relapsing or chronic Kikuchi syndrome is fairly unusual and a substantial portion of those patients eventually turning machine operator helper to have lupus. Some authors have even speculated that recurrent or chronic Kikuchi syndrome really is a form of a lupus, but this is by no means settled in the scientific literature. RECOMMENDATIONS: 1. 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 She is already on Unasyn but the dose should be increased to 3 g q.6 h. 2. We need additional records from [facility] as we are currently working partly in the dark with respect to this very complex and longstanding medical problem. I have asked the computer forwarding system markup clerk to obtain discharge summaries from her admissions going back over the past decades, and then once I can establish who the Infectious Disease doctor was she saw down there I will give that person a call tomorrow. 3. A nasal MRSA screen will be obtained. 4. ASO titer, as well as Anti-DNase B titer will be obtained. 5. Vancomycin will be added in accordance with pharmacy dosing. 6. CAROL will be checked.
[2017-01-16] MEDS: HYDROmorphone 1 mg/mL Inj IVPUSH PRN ×8 (03:16→22:40)
[2017-01-16] MEDS: Ampicillin-Sulbactam Inj 3,000 MG in 0.9% Sodium Chloride 50 ML IV SCH ×3 (05:18→19:33)
[2017-01-16 05:48] VITALS: BP 131/83; PULSE 75; RESP 20; O2SAT 96
[2017-01-16] MEDS: LEVOTHYROXINE PO SCH (05:58)
--- NOTE | 2017-01-16 06:16 | NUR ---
Pain / antibiotics Pain being well managed with 2 mg Dilaudid every 3 hours, increases rapidly if not kept on schedule. Declines offers of heat or ice. Does not report significant increase in swelling, continue to monitor for airway compromise. Reported being able to sleep more than she has in several weeks. Anxiety reduced after seeing Dr Pisano and getting antibiotics on schedule that has been effective in past admissions. Hourly rounding ongoing.
[2017-01-16] MEDS: Vancomycin Dose per Pharmacist XX SCH (08:30)
[2017-01-16] MEDS: Heparin 5,000 Unit/mL Inj SUBQ SCH ×2 (08:33→21:21)
[2017-01-16] MEDS: Vancomycin Inj 2,000 MG in 0.9% Sodium Chloride 500 ML IV SCH ×2 (09:14→21:21)
[2017-01-16 11:56] VITALS: BP 144/78; PULSE 65; RESP 16; O2SAT 97
[2017-01-16] MEDS: Senna-Docusate 8.6-50 mg Tablet PO SCH (12:23)
[2017-01-16] MEDS: Polyethylene Glycol (PEG) 17 Gm Powder PO PRN (12:23)
--- NOTE | 2017-01-16 12:45 | PROG NOTE ---
[address] [address] PROGRESS NOTE PATIENT: MARVEL COREA : 1970 MR#: [id number] ADMIT: 01/14/2017 JOB ID: [id number] DATE: 01/16/2017 INFECTIOUS DISEASE FOLLOWUP NOTE: REASON FOR FOLLOWUP: Right facial cellulitis in a patient with a complex history of prior neck surgery and possible Kikuchi syndrome. INTERVAL HISTORY: Overnight the patient has noticed continued erythema and tenderness of the right face, especially just forward of the right ear. She has had no fevers or chills. She has had some right-sided headache as well. She has also noted some minimal trouble swallowing, especially with solids, and her voice continues to be abnormal. No cough, shortness of breath, or GI symptoms, except some ongoing constipation. PHYSICAL EXAMINATION: Reveals an afebrile woman temp 36.6, pulse 75, respiratory rate 20, blood pressure 131/83, saturating well on 2 L. Examination of the eyes without conjunctivitis. The right face tender, especially just forward of the right ear, where it is quite indurated and warm. The area below the right mandible is relatively benign and I do not note any lymphadenopathy. The intraoral cavity appears relatively benign, but I do not get an excellent view with just my pen light. Lungs: Quite clear. Abdomen: No change. LABORATORIES: Include a white count which was down to 8700 yesterday; I have not repeated it. Creatinine yesterday 0.46. Serology is of critical importance and an ASO titer is 630, which is greater than three times the upper limit of normal. Blood cultures are negative. A MRSA screen is pending. IMAGING: We have no new imaging. IMPRESSION: This is an extremely complex patient with underlying Kikuchi syndrome, thyroid cancer, and right radical neck dissection, who presents with another in a series of recurrent episodes of right facial erythema and tenderness. She states that these have been treated in the past with a combination of dexamethasone, vancomycin, and Unasyn, with resolution at other institutions. I think that these likely represent recurrent group A strep infections in a patient with abnormal lymphatic drainage in her face. The ASO titer would seem to confirm this. Whether or not there may be other associated pathology here causing her hoarse voice and difficulty swallowing solids is unclear to me, though I am inclined to think this is all group A strep as a unifying diagnosis. RECOMMENDATIONS: 1. We await the MRSA screen. If this is negative, I will stop the vancomycin. 2. Will continue with Unasyn for now, though we could just as easily switch to ceftriaxone, but Unasyn should suffice at this point. 3. The steroids are being continued, apparently at the recommendation of the ENT, and I have no objection as I do not fully understand the reason for her difficulty swallowing and speech changes. 4. An CAROL was ordered, but for some reason was not done, and I have reordered it. 5. The patient asked me to prescribe senna/docusate for her constipation and I have done so, just to facilitate this part of her care. In exchange I stopped the senna that had been written for p.r.n.
--- NOTE | 2017-01-16 15:33 | PCM.PNMED ---
Subjective Date of Service Jan 16, 2017 Subjective Patient seen and examined this morning. Patient is having improved swelling over the right side of the face. Patients condition is improving as per patient. Will continue with vancomycin, unasyn and dexamethasone until MRSA results have returned/. Patient is otherwise stable. Exam Vital Signs Vital Sign - Last Date Time Temp Pulse Resp B/P Pulse Ox O2 Delivery O2 Flow Rate FiO2 01/16/17 11:58 Supplement Oxygen 01/16/17 11:56 36.8 65 16 144/78 97 2.00 Intake and Output 01/15/17 01/15/17 01/16/17 Cumulative From/Thru 15:00 23:00 07:00 01/14/17 14:13 - 01/16/17 06:33 Intake Total 2606 ml 2800 ml 2215 ml 8872 ml Output Total 2200 ml 3000 ml 3000 ml 8800 ml Balance 406 ml -200 ml -785 ml 72 ml Intake Oral 2113 ml 2800 ml 1840 ml 6953 ml IV Total 493 ml 375 ml 1919 ml Output Urine Total 2200 ml 3000 ml 3000 ml 8800 ml # Voids 4 4 # Bowel Movements 0 0 Exam Exam General: No acute distress, well-developed, well-nourished, appropriately interactive HEENT: Normocephalic, atraumatic. External ears without defect. Pupils equal, round, and reactive to light and accommodation. Moist conjunctivae. Oropharynx with moist mucosa, no airway compromise secondary to swollen throat. Erythema more pronounced on right side of face. Facial swelling present. Neck: Supple with full range of motion.No lymphadenopathy Cardiovascular: Regular rate and rhythm with no murmurs, rubs, or gallops appreciated Pulmonary: Clear to auscultation bilaterally with no crackles, wheezes, or rhonchi. Normal respiratory effort with no use of accessory muscles. Abdomen: Bowel tones present. Soft, nontender, nondistended. Ext: No evidence of swelling or erythema IVs and Medications Medications Reviewed: Medications were reviewed in detail Lab and Diagnostics Result Diagram: 01/15/1753401/15/17534 X-Rays, CTs and MRIs Neck X-ray : No apparent compromise of the airway. No soft tissue mass demonstrated. No foreign body seen Assessment & Plan 1)Suspected Facial Cellulitis vs lymphedema versus Kichiki-Fujumoto Disease with flair up.: patient failed outpatient antibiotics -Pt had this present identically in the past - will treat with vancomycin, unasyn, and dexamethasone - will watch for airway compromise - pt will need to be on continuous pulse oximetry - as per patient it is improving - awaiting MRSA screen - ID consutl appreciated 3) Hypertension : Controlled0- will continue with metoprolol 4) Hypothyroidism : On hormonal supplement 5) History of thyroid cancer : On remission Heparin for DVT prophylaxis Regular diet Anticipated pt stay longer than 2 midnights VTE Prophylaxis: Sub-Q Heparin (Unfractionated) VTE Mechanical Devices: Intermittant Pneumatic CD Resuscitation Status: CPR: Attempt Resuscitation Giancarlo Preston MD Jan 16, 2017 15:33
[2017-01-16 15:52] VITALS: BP 139/87; PULSE 66; RESP 18; O2SAT 94
[2017-01-16] MEDS: Pantoprazole 40 mg ER24 Tablet PO SCH (17:21)
[2017-01-16 19:35] VITALS: BP 132/82; PULSE 61; RESP 18; O2SAT 97
--- NOTE | 2017-01-16 20:10 | NUR ---
Pain Pain control is an issue with this pt. Pt pain is being managed with 2mg Dilaudid q3h. Pain increases severely if not on top of medication schedule. Pt is encouraged to deep breath to cope with pain. Pt denies offerings of heat and ice. Bed is slow, call light within reach. Will continue to do hourly rounds.
[2017-01-16] MEDS: Ascorbic Acid 500 mg Tablet PO SCH (21:20)
[2017-01-17] MEDS: Dexamethasone Inj 10 MG in 0.9% Sodium Chloride-Pha MIX 50 ML IV SCH ×4 (01:14→16:34)
[2017-01-17] MEDS: HYDROmorphone 1 mg/mL Inj IVPUSH PRN ×7 (01:33→21:08)
[2017-01-17] MEDS: Ampicillin-Sulbactam Inj 3,000 MG in 0.9% Sodium Chloride 50 ML IV SCH ×2 (02:13→08:18)
--- NOTE | 2017-01-17 04:18 | NUR ---
Pain Pain being well managed with 2 mg Dilaudid every 3 hours, increases rapidly if not kept on schedule. Declines offers of heat or ice. Reports some increase in swelling inwardly, continue to monitor for airway compromise; exterior swelling appears improved. Hourly rounding ongoing.
[2017-01-17 05:01] VITALS: BP 120/75; PULSE 75; RESP 18; O2SAT 97
[2017-01-17] MEDS: Polyethylene Glycol (PEG) 17 Gm Powder PO PRN (05:37)
[2017-01-17] MEDS: Senna-Docusate 8.6-50 mg Tablet PO SCH (05:37)
[2017-01-17] MEDS ORDERED: 0.9% Sodium Chloride 250 ML ONE (05:50)
[2017-01-17 06:06] LABS: BASOPHILS % (AUTO) 0 % (0-3); EOSINOPHILS % (AUTO) 0 % (0-5); MONOCYTES % (AUTO) 4.2 % (4-12); Mean Corpuscular Hemoglobin 30.3 pg (27.0-35.0); Mean Corpuscular Volume 91.4 fL (81-100); NEUTROPHILS % (AUTO) 82.1 % (40-74); Platelet Count 340 bil/L (150-400)
[2017-01-17] MEDS ORDERED: Vancomycin Serum Trough XX ONE (08:30)
[2017-01-17] MEDS: Heparin 5,000 Unit/mL Inj SUBQ SCH ×2 (08:35→21:15)
[2017-01-17 09:52] VITALS: BP 134/87; PULSE 54; RESP 12; O2SAT 99
[2017-01-17] MEDS: Vancomycin Dose per Pharmacist XX SCH (09:53)
[2017-01-17] MEDS: Vancomycin Inj 2,000 MG in 0.9% Sodium Chloride 500 ML IV SCH ×2 (10:07→21:07)
[2017-01-17] MEDS ORDERED: Magnesium Hydroxide 10 mL Oral Concentration PO ONE (12:45)
[2017-01-17 13:00] VITALS: BP 169/97; PULSE 67; RESP 16; O2SAT 98
[2017-01-17] MEDS ORDERED: HYDROmorphone 2 mg/mL Inj IVPUSH PRN (14:31)
[2017-01-17] MEDS ORDERED: HYDROmorphone 1 mg/mL Inj ONE (14:38)
--- NOTE | 2017-01-17 14:47 | NUR ---
Social Work-readiness for discharge: Data:EMR Reviewed. Pt is on day 3 of hospitalization for facial cellulitis per H&P. Pt is not medically stable at this time, anticipate tomorrow. Pt resides at home with where she remains independent with ADLs. Pt will likely require 2 more days of IV abx. Per RN notes, pt has been up independent in her room. Pt's to provide transport home. No anticipated discharge needs. SW will continue to follow if needs arise. Assessment:Pt who is independent at baseline. Plan:Pt to discharge home when medically stable via POV. No anticipated discharge needs. SW will continue to follow if needs arise. PADMINI Gilmore
--- NOTE | 2017-01-17 15:04 | PCM.PHAPRO ---
Progress Right face swelling and pain VANCOMYCIN DOSING PER PHARMACY Indication: Facial cellulitis Goal trough: 10-15 MRSA screen: negative; Blood: NG x 48 hrs A/P: Trough this AM = 7.6. Spoke to hospitalist about discontinuing vancomycin put patient persists on remaining on therapy for her infection. She believes that it's the only thing helping with her infection. For now, I will not change the dose or frequency even with the sub-therapeutic level given MRSA is highly unlikely.. Will continue to monitor course. Dariusz Proctor, PharmD Dariusz Proctor Jan 17, 2017 15:04
[2017-01-17] MEDS: Ampicillin-Sulbactam Inj 3,000 MG in 0.9% Sodium Chloride 100 ML IV SCH ×2 (17:31→23:27)
[2017-01-17] MEDS: Pantoprazole 40 mg ER24 Tablet PO SCH (17:36)
[2017-01-17] MEDS: Ondansetron 2 mg/mL 2 mL Inj IVPUSH PRN (19:28)
--- NOTE | 2017-01-17 19:48 | PROG NOTE ---
[address] [address] PROGRESS NOTE PATIENT: MARVEL COREA : 1970 MR#: [id number] ADMIT: 01/14/2017 JOB ID: [id number] DATE: 01/17/2017 REASON FOR FOLLOWUP: Complex case involving right facial cellulitis and swelling in the anterior medial neck. The patient continues to have a wide variety of symptoms including subjective chills, sweats and generalized malaise. The swelling of the right side of her face with erythema seems worse to her today despite now several days of vancomycin plus Unasyn therapy. 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 PHYSICAL EXAMINATION: Reveals an afebrile woman who has been afebrile since admission three days ago. Her temperature is 36.6, pulse 67, respiratory rate 16, blood pressure 169/97. She is saturating well on 2 L. Mental status is clear. The right facial cellulitis continues to be relatively mild to my exam, but is definitely present and is worse towards the right ear where there is some warmth and significant erythema as well as tenderness to palpation. The right mandible area seems benign. The oral cavity is normal in that I cannot see any pharyngitis or thrush. The patient's anterior neck structures feel normal to palpation, but she reports considerable tightness in the neck and even trouble swallowing. Lungs are completely clear. Cardiac tones: Regular rate and rhythm. No rash except that noticed on the right face. LABORATORIES: Include white count 9900 today with 82% segs, creatinine is 0.61. Urinalysis without white cells. CAROL negative. ASO titer strongly positive at 630. MRSA screen negative. Blood cultures negative. No recent imaging has been done. IMPRESSION: This remains a very complicated case. I think at least part of what is going on is streptococcal cellulitis of the right side of the face. This may be recurrent on the basis of her prior right neck and facial surgeries. There is also a 2nd process it would seem going on somewhere in the oropharynx or perhaps just distal to that area which is producing the trouble with speech and the trouble swallowing. 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 RECOMMENDATIONS: 1. I have ordered a CT scan with contrast of the neck as well as the lower face extending all the way up to the mastoids. 2. I would reinvolve the ENT team who knows her well and consists of Dr. Bales, Dr. Davis and their partners. 3. Ordinarily, I would drop the vancomycin as we do not have evidence of MRSA and we do have strong evidence of group A strep based on the high ASO titer, but the patient believes this is the one thing that is keeping her going, and so I reluctantly would agree to continue the vancomycin in addition to the Unasyn therapy which should in and of itself be adequate for the group A strep. 4. We will re-evaluate this patient and her antibiotics again tomorrow after we have some input from a CT scan as well as the ENT group.
[2017-01-17 19:57] VITALS: BP 140/79; PULSE 69; O2SAT 97
[2017-01-17] MEDS: Ascorbic Acid 500 mg Tablet PO SCH (21:12)
--- NOTE | 2017-01-17 21:32 | DRSVH ---
PROCEDURE: CT NECK SOFT TISSUES WITH CONTRAST ([id number]) INDICATIONS: SWELLING/ HISTORY OF THYROID CANCER TECHNIQUE: After the administration of intravenous contrast, 3.0 mm axial sections acquired from the sella to th e aortic arch. Additional oblique axial 3.0 mm sections acquired through the pharynx. 3 mm thick co radha reformats were generated. For radiation dose reduction, the following was used: automated exp osure control. COMPARISON: [facility], CT, CT NECK SOFT TISSUE W CON, 06/28/2016, 7:55. FINDINGS: Image quality: Excellent. Lymph nodes: There is a 1 x 1.5 cm right submandibular lymph node, which has decreased in size (prev iously 1.8 x 2.3 cm). Slightly prominent but normal sized right submental lymph nodes are noted, also decreased in size. Vessels: Visualized vasculature appears patent. Neck spaces: Postsurgical changes are present in the right neck. Again noted is a mass involving the right adrenal cord measuring 0.9 x 1.3 cm. It appears unchanged. The oropharynx, nasopharynx, and pharynx demonstrate no mucosal lesions. The vocal cords, false voca l cords, pyriform sinuses, epiglottis, vallecula, and tongue base all appear normal. Extramucosal sp aces appear unremarkable. Glands: There are several small soft tissue nodules in the right parotid gland measuring up to 1 cm, minimally changed from the last exam. The right submandibular gland is absent. Thyroid gland is ab sent. Miscellaneous: Visualized brain and orbits appear normal. Lung apices appear clear. Superficial so ft tissues appear normal. Bones: No suspicious bony lesions. Visualized sinuses and mastoids appear unremarkable. IMPRESSION: 1. Stable soft tissue mass in the right koby-vocal cord. 2. Decreasing right cervical lymphadenopathy. 3. Multiple prominent soft tissue nodules in the right parotid glands. Differential diagnoses include intraparotid lymph nodes versus benign or malignant salivary gland tumors such as pleomorphic adenom a and mucoepidermoid carcinoma. Recommend clinical correlation and followup. 4. Thyroidectomy and right neck postsurgical changes.. Dictated by: Jorge Hanna M.D. on 01/17/2017 at 21:22 Transcribed by: TOMY on 01/17/2017 at 21:32 Approved by: Jorge Hanna M.D. on 01/18/2017 at 9:15
--- NOTE | 2017-01-17 22:22 | NUR ---
Dizziness & facial redness P- Pt. experiencing dizziness which worsens with ambulation. Face flushing/red. I- 1 person assist to bathroom. Advised to change position slowly & accept assistance to prevent fall. Cool washcloth placed on pt. head & neck. Primary nurse notified of redness and dizziness. E- pt. accepts assistance to restroom & waits for assistance back to bed when experiencing dizziness. redness subsided. Will continue to monitor. S- Bed locked & in low position. Call light in reach.
[2017-01-18] MEDS: HYDROmorphone 1 mg/mL Inj IVPUSH PRN ×7 (00:45→23:43)
[2017-01-18] MEDS: Dexamethasone Inj 10 MG in 0.9% Sodium Chloride-Pha MIX 50 ML IV SCH ×3 (00:45→16:51)
[2017-01-18 04:14] VITALS: BP 161/98; PULSE 62; RESP 20; O2SAT 95
[2017-01-18] MEDS: Ampicillin-Sulbactam Inj 3,000 MG in 0.9% Sodium Chloride 100 ML IV SCH ×4 (04:38→23:44)
--- NOTE | 2017-01-18 05:32 | NUR ---
pain patient requests pain medication for right facial/neck discomfort. rates 7. neck is swollen. minimal redness medicated with dilaudid 2mg slow iv push. patient given emotional support. care ongoing.
[2017-01-18] MEDS: LEVOTHYROXINE PO SCH (06:04)
[2017-01-18 06:18] LABS: BASOPHILS % (AUTO) 0.1 % (0-3); EOSINOPHILS % (AUTO) 0 % (0-5); MONOCYTES % (AUTO) 6.2 % (4-12); Mean Corpuscular Volume 91.4 fL (81-100); NEUTROPHILS % (AUTO) 78.4 % (40-74); Platelet Count 353 bil/L (150-400)
[2017-01-18] MEDS ORDERED: 0.9% Sodium Chloride 250 ML ONE (06:47)
[2017-01-18] MEDS: Heparin 5,000 Unit/mL Inj SUBQ SCH ×2 (08:07→20:49)
[2017-01-18] MEDS: Senna-Docusate 8.6-50 mg Tablet PO SCH (08:08)
[2017-01-18] MEDS: Polyethylene Glycol (PEG) 17 Gm Powder PO PRN (08:11)
[2017-01-18] MEDS: Vancomycin Dose per Pharmacist XX SCH (08:30)
--- NOTE | 2017-01-18 09:20 | PCM.PNMED ---
Subjective Date of Service Jan 18, 2017 Subjective Patient complains of more difficulty swallowing in the throat area and also notices more of a hoarse voice. She also notes some increasing swelling on the left side of her face also but no erythema noted. Exam Vital Signs Vital Sign - Last Date Time Temp Pulse Resp B/P Pulse Ox O2 Delivery O2 Flow Rate FiO2 01/18/17 04:14 36.7 62 20 161/98 95 Nasal Cannula 2.00 Intake and Output 01/17/17 01/17/17 01/18/17 Cumulative From/Thru 15:00 23:00 07:00 01/14/17 14:13 - 01/18/17 05:41 Intake Total 4782 ml 1500 ml 76874 ml Output Total 3200 ml 2650 ml 67300 ml Balance 1582 ml -1150 ml 827 ml Intake Oral 2800 ml 1500 ml 11256 ml IV Total 1982 ml 5484 ml Output Urine Total 3200 ml 2650 ml 61870 ml # Voids 4 # Bowel Movements 2 0 2 Exam Constitutional: Middle-aged female in mild pain distress Head: Swelling of bilateral face right greater than left with some tenderness and erythema particularly over the zygomatic area. And over the right neck area. Mouth: No visible lesions. Neck: Increased tenderness and swelling and some erythema on the right side Chest: Clear to auscultation Cor: Regular rate and rhythm S1-S2 Abdomen: Soft nontender bowel sounds present Extremities: No pedal edema noted Neuro: Alert and oriented 3, motor strength is intact bilaterally Lab and Diagnostics Result Diagram: 01/18/17 0535 01/18/17 0535 X-Rays, CTs and MRIs Neck X-ray : No apparent compromise of the airway. No soft tissue mass demonstrated. No foreign body seenPROCEDURE: CT NECK SOFT TISSUES WITH CONTRAST ([id number]) INDICATIONS: SWELLING/ HISTORY OF THYROID CANCER TECHNIQUE: After the administration of intravenous contrast, 3.0 mm axial sections acquired from the sella to the aortic arch. Additional oblique axial 3.0 mm sections acquired through the pharynx. 3 mm thick coronal reformats were generated. For radiation dose reduction, the following was used: automated exposure control. COMPARISON: [facility], CT, CT NECK SOFT TISSUE W CON, 06/28/2016, 7 :55. FINDINGS: Image quality: Excellent. Lymph nodes: No enlarged lymph nodes seen throughout the neck. Vessels: Visualized vasculature appears patent. Neck spaces: Postsurgical changes are present in the right neck. Again noted is a mass involving the right adrenal cord measuring 0.9 x 1.3 cm. It appears unchanged. The oropharynx, nasopharynx, and pharynx demonstrate no mucosal lesions. The vocal cords, false vocal cords, pyriform sinuses, epiglottis, vallecula, and tongue base all appear normal. Extramucosal spaces appear unremarkable. Glands: There are several small soft tissue nodules in the right parotid gland measuring up to 1 cm. The right submandibular gland is absent. There is a 1 x 1.5 cm right submandibular lymph node, which has decreased in size (previously 1.8 x 2.3 cm). Thyroid gland is absent. Miscellaneous: Visualized brain and orbits appear normal. Lung apices appear clear. Superficial soft tissues appear normal. Bones: No suspicious bony lesions. Visualized sinuses and mastoids appear unremarkable. IMPRESSION: 1. 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 2. Decreasing size of an enlarged right centimeter lymph node. 3. Multiple prominent soft tissue nodules in the right parotid glands. Differential diagnoses include intraparotid lymph nodes versus benign or malignant salivary gland tumors such as pleomorphic adenoma and mucoepidermoid carcinoma. Recommend clinical correlation and followup. 4. Thyroidectomy and right neck postsurgical changes.. Dictated by: Jorge Hanna M.D. on 01/17/2017 at 21:22 Transcribed by: TOMY on 01/17/2017 at 21:32 Assessment & Plan 1)Suspected Facial Cellulitis vs lymphedema versus Kichiki-Fujumoto Disease with flair up.: patient failed outpatient antibiotics -Pt had this present identically in the past - will treat with vancomycin, unasyn, and dexamethasone - will watch for airway compromise - pt will need to be on continuous pulse oximetry - as per patient it is improving - awaiting MRSA screen - ID consutl appreciated. Results of CT scan of soft tissue of neck have been reviewed by myself and are listed above. -Infectious disease recommended consulting ENT. I did contact Dr. Morrow today and he will come see the patient. 3) Hypertension : Controlled0- will continue with metoprolol 4) Hypothyroidism : On hormonal supplement 5) History of thyroid cancer : On remission Heparin for DVT prophylaxis Regular diet Anticipated pt stay longer than 2 midnights VTE Prophylaxis: Sub-Q Heparin (Unfractionated) VTE Mechanical Devices: Intermittant Pneumatic CD Resuscitation Status: CPR: Attempt Resuscitation Time spent 30 minutes Callie Issa MD Jan 18, 2017 09:20
[2017-01-18] MEDS: Vancomycin Inj 2,000 MG in 0.9% Sodium Chloride 500 ML IV SCH ×2 (09:30→20:52)
[2017-01-18] MEDS: Magnesium Hydroxide 10 mL Oral Concentration PO PRN ×2 (10:49→23:42)
[2017-01-18] MEDS ORDERED: Glucose 40% Oral Gel 15 Gm Tube PO PRN (12:10)
[2017-01-18] MEDS: Insulin LISPRO 300 Unit/3 mL Inj SUBQ SCH ×3 (12:22→22:52)
[2017-01-18 13:09] VITALS: BP 144/86; PULSE 70; RESP 20; O2SAT 96
[2017-01-18] MEDS: Ondansetron 2 mg/mL 2 mL Inj IVPUSH PRN (14:00)
--- NOTE | 2017-01-18 14:39 | CONS ---
[address] [address] CONSULTATION REPORT PATIENT: MARVEL COREA : 1970 MR#: [id number] ADMIT: 01/14/2017 JOB ID: [id number] DATE OF SERVICE: 01/18/2017 The patient has been hospitalized over the last four days with a swelling involving mostly her right cheek slowly spreading to the left cheek. She has a complicated history. 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 Had surgery and then it was followed by selective neck dissection three months later. She had lymph nodes removed again in 1991 and 1999 and again in 2006. 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 She has had intermittent adenopathy and recurrent infections primarily involving the right neck in the past and sometimes spread to the jaw. At one point, she was admitted to [facility] for an admission of approximately 47 days. She was on parental vancomycin and oral steroids. At one point in 1986, she had a Jakub injection of the right vocal cord. Today she early in the day felt increasing tightness to her lower throat. Review of the CT scan of the neck performed on January 17 showed the Jakub injection in the right vocal cord but no sign of infection in the lower neck and no significant adenopathy. Today, as I interview her, her voice is not hoarse. She is not having problems with breathing. She still feels facial fullness. She believes it may have spread across to the left cheek where she feels fullness and she has worried a little bit about her lower throat feeling "tight." We looked in her ears, nose and throat. Mucosa appeared completely normal. She does have some slight fullness to the right cheek over the area of the parotid. She does not clinically have parotitis. She has no firmness in that area. Opening of the parotid ducts bilaterally appear normal and there is no mucopus seen. Fiberoptic hypopharyngoscopy was recommended. We then used the fiberoptic scope, went into the right naris, advanced it into the hypopharynx. There was no significant erythema or edema of the hypopharynx. She has good left vocal cord mobility. Examination the neck shows no significant masses or fullness. IMPRESSION: Complicated history of autoimmune disease with facial and intermittent swelling of the throat with a Jakub injection. Her recent endoscopy does show no acute infection of her lower throat. She does have a patent airway although it appears to be more narrowed than normal because of the Jakub injection. PLAN: I would suggest possible referral to the [facility] for evaluation of the larynx. A decision could be made since she has had multiple intubations, some of which have been difficult, that they could consider perhaps Jakub removal or partial cord lateralization. Thank you very much for asking me to see her and will follow her with you.
--- NOTE | 2017-01-18 15:21 | PROG NOTE ---
[address] [address] PROGRESS NOTE PATIENT: MARVEL COREA : 1970 MR#: [id number] ADMIT: 01/14/2017 JOB ID: [id number] DATE: 01/18/2017 INFECTIOUS DISEASE FOLLOW UP NOTE: REASON FOR FOLLOWUP: Complex right facial infection associated with airway compromising inflammatory process of unknown etiology. The patient reports that her right facial cellulitis which extends all the way from the midline back to the right ear is actually getting worse. She reports there is more tenderness, warmth and swelling there. She also notes there is now tenderness extending below the mandible on the right side and a little bit extending over all the way to the left side of the face. She reports this is similar to what has happened in prior episodes where she required weeks of IV antibiotics to even see improvement. She has no overt fevers, chills or sweats with this. She continues to experience a sensation of swelling or tightness within her neck which is of concern to her healthcare providers as well as the patient given her history of intubations in the past. Today she was seen by Dr. Yariel Morrow of ENT. He and I discussed this case for about 10 or 15 minutes on the telephone following has consult. He felt that it is possible that she might be having issues in her throat related to a Jakub injection into her right vocal cord that was performed back in the when that was a popular procedure. Her endoscopy that he did does not show what appears to be acute infection of the lower throat and he noted she had a patent though somewhat narrow airway. He noted that she did not have parotitis. PHYSICAL EXAMINATION: The patient has remained afebrile throughout her hospital stay. Temp 36.6, pulse 70, respiratory rate 18, blood pressure 144/86. She is saturating well on room air today. The right face is erythematous and there is [id number] tenderness across the right face all the way back to and involving the right ear. This extends inferiorly down just below the mandible on the right. There is a hint of erythema along the left infraorbital area. The patient's oropharynx that I can see is grossly normal and I defer, of course, to Dr. Morrow's endoscopic examination that regard. The patient's lungs are clear. There is no skin rash elsewhere. Her voice is slightly hoarse. LABORATORIES: Include a white count stable at 10,400, 78% segs but, of course, she is on steroids. Her creatinine is 0.62. ALT is 37. Urinalysis without white cells. CAROL screen has come back negative. Anti DNase B was negative but ASO was positive at 630. Blood cultures and MRSA screen negative. The CT scan of the neck we obtained yesterday showed stable tissue mass in the right koby vocal cord which turns out to be the Jakub. There is decreasing right cervical adenopathy as compared to prior CTs and there are multiple prominent soft tissue nodules in the parotid glands. There is also evidence, of course, of a thyroidectomy and prior right neck dissection. IMPRESSION: I do not have a unifying or complete understanding of what is going on with this case. I think the patient does have some degree of right facial cellulitis which I suspect to be streptococcal based on her high ASO titer, but she has not responded to a combination of vanc and Unasyn which she says has been the standard therapy when she was admitted in the [facility] for this same process. Also of concern is the subjective swelling around the vocal cord area and her inability to even eat normally in terms of eating solid foods due to the sense of stenosis in the throat. The CT scan discloses what is clearly an abnormality in the right vocal cord which apparently the Jakub that was implanted there almost 30 years ago, which could be causing some of her non infectious symptoms. At this point, given the patient's concerns about her airway, as well as the lack of a comprehensive diagnosis and response to antibiotics in this case, I think it would be reasonable to transfer the patient to the [facility]. Dr. Morrow has provided the names of two of his colleagues who specialize in such issues and I have discussed this case both with Dr. Morrow this afternoon as well as Dr. Issa, the hospitalist, who all are in agreement that transfer would be reasonable. RECOMMENDATIONS: 1. If the patient were to stay here much longer, I would consolidate the vanc and Unasyn therapy and simply give daptomycin once a day. This would be much easier on the patient's veins and would have all this same coverage as the combo of vanc and Unasyn in terms of Staph and strep. If additional coverage was needed, we could use perhaps ertapenem as a once a day alternative for other organisms. 2. In view of the fact she may be transferred to the [facility] in the next 24 hours or so, I would just be inclined to keep her on vanc, Unasyn and the steroids as were doing and let the ENT and Infectious Disease physicians at the [facility] have a look at this patient and make a decision as to how they wish to change her antibiotics. 3. Note that I will be out of the country for the next 10 days. I can be reached by E-mail but not by telephone and I will be returning January 29.
[2017-01-18] MEDS: Pantoprazole 40 mg ER24 Tablet PO SCH (16:59)
[2017-01-18] MEDS: LORazepam 1 mg Tablet PO PRN (18:32)
--- NOTE | 2017-01-18 19:08 | NUR ---
Pain/Anxiety Pt experiencing increased px this shift, states the swelling is increasing in face. MD aware. Pt receiving dilaudid for px. Pt experiencing increased anxiety this afternoon after MD spoke to her about transferring to [facility]. ordered ativan, administered and had + effects. Pt up and ambulated around floor with
[2017-01-18 19:45] VITALS: BP 152/80; PULSE 80; RESP 20; O2SAT 100
[2017-01-18] MEDS: Ascorbic Acid 500 mg Tablet PO SCH (20:49)
[2017-01-19] MEDS: LORazepam 1 mg Tablet PO PRN ×2 (01:11→14:51)
[2017-01-19] MEDS: Dexamethasone Inj 10 MG in 0.9% Sodium Chloride-Pha MIX 50 ML IV SCH ×3 (01:11→17:41)
[2017-01-19] MEDS: HYDROmorphone 1 mg/mL Inj IVPUSH PRN ×6 (02:36→20:51)
[2017-01-19 04:54] VITALS: BP 146/90; PULSE 62; RESP 20; O2SAT 95
[2017-01-19] MEDS: Ampicillin-Sulbactam Inj 3,000 MG in 0.9% Sodium Chloride 100 ML IV SCH ×3 (05:43→20:27)
[2017-01-19] MEDS: LEVOTHYROXINE PO SCH (05:45)
--- NOTE | 2017-01-19 06:28 | NUR ---
Pain C/O of facial pain. Q3H of shift was given IV Dilauded and experienced relief.
[2017-01-19 07:16] VITALS: BP 134/80; PULSE 63; RESP 20; O2SAT 95
[2017-01-19] MEDS: Magnesium Hydroxide 10 mL Oral Concentration PO PRN (07:52)
[2017-01-19] MEDS: Senna-Docusate 8.6-50 mg Tablet PO SCH (07:53)
[2017-01-19] MEDS: Heparin 5,000 Unit/mL Inj SUBQ SCH ×2 (07:54→20:27)
[2017-01-19] MEDS: Insulin LISPRO 300 Unit/3 mL Inj SUBQ SCH ×4 (07:55→22:44)
[2017-01-19] MEDS: Vancomycin Dose per Pharmacist XX SCH (08:30)
[2017-01-19] MEDS ORDERED: 0.9% Sodium Chloride 250 ML ONE (09:03)
[2017-01-19] MEDS: Vancomycin Inj 2,000 MG in 0.9% Sodium Chloride 500 ML IV SCH ×2 (10:03→22:03)
--- NOTE | 2017-01-19 13:33 | PCM.PNMED ---
Subjective Date of Service Jan 19, 2017 Subjective Patient notes that there is no change in the amount of swelling or erythema since yesterday. She still has some discomfort with her voice and throat. She did not initiate to get a good night's sleep as she was given some Ativan when necessary anxiety/insomnia. Exam Vital Signs Vital Sign - Last Date Time Temp Pulse Resp B/P Pulse Ox O2 Delivery O2 Flow Rate FiO2 01/19/17 07:16 36.8 63 20 134/80 95 Room Air 01/18/17 19:45 2.00 Intake and Output 01/18/17 01/18/17 01/19/17 Cumulative From/Thru 14:59 22:59 06:59 01/14/17 14:13 - 01/19/17 06:12 Intake Total 3775 ml 1553 ml 13455 ml Output Total 8100 ml 3400 ml 16431 ml Balance -4325 ml -1847 ml -5345 ml Intake Oral 2775 ml 1553 ml 67549 ml IV Total 1000 ml 0 ml 6484 ml Output Urine Total 8100 ml 3400 ml 46648 ml # Voids 1 5 # Bowel Movements 0 2 Exam Constitutional: Middle-aged female in mild pain distress Head: Swelling of bilateral face right greater than left with some tenderness and erythema particularly over the zygomatic area. And over the right neck area. Mouth: No visible lesions. Neck: Increased tenderness and swelling and some erythema on the right side Chest: Clear to auscultation Cor: Regular rate and rhythm S1-S2 Abdomen: Soft nontender bowel sounds present Extremities: No pedal edema noted Neuro: Alert and oriented 3, motor strength is intact bilaterally Lab and Diagnostics Result Diagram: 01/18/17 0535 01/18/17 0535 X-Rays, CTs and MRIs Neck X-ray : No apparent compromise of the airway. No soft tissue mass demonstrated. No foreign body seenPROCEDURE: CT NECK SOFT TISSUES WITH CONTRAST ([id number]) INDICATIONS: SWELLING/ HISTORY OF THYROID CANCER TECHNIQUE: After the administration of intravenous contrast, 3.0 mm axial sections acquired from the sella to the aortic arch. Additional oblique axial 3.0 mm sections acquired through the pharynx. 3 mm thick coronal reformats were generated. For radiation dose reduction, the following was used: automated exposure control. COMPARISON: [facility], CT, CT NECK SOFT TISSUE W CON, 06/28/2016, 7 :55. FINDINGS: Image quality: Excellent. Lymph nodes: No enlarged lymph nodes seen throughout the neck. Vessels: Visualized vasculature appears patent. Neck spaces: Postsurgical changes are present in the right neck. Again noted is a mass involving the right adrenal cord measuring 0.9 x 1.3 cm. It appears unchanged. The oropharynx, nasopharynx, and pharynx demonstrate no mucosal lesions. The vocal cords, false vocal cords, pyriform sinuses, epiglottis, vallecula, and tongue base all appear normal. Extramucosal spaces appear unremarkable. Glands: There are several small soft tissue nodules in the right parotid gland measuring up to 1 cm. The right submandibular gland is absent. There is a 1 x 1.5 cm right submandibular lymph node, which has decreased in size (previously 1.8 x 2.3 cm). Thyroid gland is absent. Miscellaneous: Visualized brain and orbits appear normal. Lung apices appear clear. Superficial soft tissues appear normal. Bones: No suspicious bony lesions. Visualized sinuses and mastoids appear unremarkable. IMPRESSION: 1. 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 2. Decreasing size of an enlarged right centimeter lymph node. 3. Multiple prominent soft tissue nodules in the right parotid glands. Differential diagnoses include intraparotid lymph nodes versus benign or malignant salivary gland tumors such as pleomorphic adenoma and mucoepidermoid carcinoma. Recommend clinical correlation and followup. 4. Thyroidectomy and right neck postsurgical changes.. Dictated by: Jorge Hanna M.D. on 01/17/2017 at 21:22 Transcribed by: TOMY on 01/17/2017 at 21:32 Assessment & Plan 1)Suspected Facial Cellulitis vs lymphedema versus Kichiki-Fujumoto Disease with flair up.: patient failed outpatient antibiotics -Pt had this present identically in the past - will treat with vancomycin, unasyn, and dexamethasone - will watch for airway compromise - pt will need to be on continuous pulse oximetry - as per patient it is improving - awaiting MRSA screen - ID consutl appreciated. Results of CT scan of soft tissue of neck have been reviewed by myself and are listed above. -Infectious disease recommended consulting ENT. ENT, Dr. Morrow did see the patient yesterday and this is a portion of his consult note: IMPRESSION: Complicated history of autoimmune disease with facial and intermittent swelling of the throat with a Jakub injection. Her recent endoscopy does show no acute infection of her lower throat. She does have a patent airway although it appears to be more narrowed than normal because of the Jakub injection. PLAN: I would suggest possible referral to the [facility] for evaluation of the larynx. A decision could be made since she has had multiple intubations, some of which have been difficult, that they could consider perhaps Jakub removal or partial cord lateralization. Thank you very much for asking me to see her and will follow her with you. I did contact earlier today [facility] transfer center and did speak with ENT block mason Dr. Brennan Tellez who was amenable to having the patient transferred there however at this point there are no beds available so patient is on waiting list for transfer. Dr. Tellez did note that if symptoms progress to please notify him sooner. 3) Hypertension : Controlled0- will continue with metoprolol 4) Hypothyroidism : On hormonal supplement 5) History of thyroid cancer : On remission Heparin for DVT prophylaxis Regular diet Anticipated pt stay longer than 2 midnights VTE Prophylaxis: Sub-Q Heparin (Unfractionated) VTE Mechanical Devices: Intermittant Pneumatic CD Resuscitation Status: CPR: Attempt Resuscitation Time spent 40 minutes Callie Issa MD Jan 19, 2017 13:33
[2017-01-19] MEDS: MeTOProlol 1 mg/mL 5 mL Inj IVPUSH SCH ×2 (15:10→21:27)
[2017-01-19] MEDS ORDERED: Acetaminophen 32.5 mg/mL 20 mL Liquid PO PRN (15:10)
[2017-01-19 16:13] VITALS: BP 144/85; PULSE 70; RESP 18; O2SAT 95
--- NOTE | 2017-01-19 16:18 | NUR ---
Social Work Continued Discharge Planning: Per report in rounds, plan is transfer to [facility] when bed available. SW to follow as further needs arise. PLAN: Transfer to [facility], when bed available Brice John
--- NOTE | 2017-01-19 19:26 | NUR ---
Difficulty swallowing Pt took medication this AM three tablets at at time and had difficulty swallowing. Pt able to clear medications This afternoon pt took one small pill and had difficulty again. aware, all meds switched to liquid and IV. Bed down and locked, call light w/in reach and used appropriately
[2017-01-19] MEDS: Multivitamins w/Minerals 5 mL Liquid Supplement PO SCH (20:45)
[2017-01-19 21:00] VITALS: BP 144/84; PULSE 71; RESP 16; O2SAT 95
[2017-01-19] MEDS: LORazepam 1 mg Tablet SL PRN (22:39)
[2017-01-20] MEDS: HYDROmorphone 1 mg/mL Inj IVPUSH PRN ×5 (00:45→22:02)
[2017-01-20] MEDS ORDERED: 0.9% Sodium Chloride 250 ML ONE ×2 (01:14→12:45)
[2017-01-20] MEDS: Dexamethasone Inj 10 MG in 0.9% Sodium Chloride-Pha MIX 50 ML IV SCH ×4 (01:46→21:48)
[2017-01-20] MEDS: Ampicillin-Sulbactam Inj 3,000 MG in 0.9% Sodium Chloride 100 ML IV SCH ×6 (02:38→22:38)
[2017-01-20 02:53] VITALS: BP 137/78; PULSE 71
[2017-01-20] MEDS: MeTOProlol 1 mg/mL 5 mL Inj IVPUSH SCH ×2 (03:28→08:57)
--- NOTE | 2017-01-20 03:54 | NUR ---
Facial pain / swelling Pain rated 6. IV dilaudid 2mg given with moderate relief. Speech clear but somewhat hoarse. No SOB. Eating food and taking PO without cough tonight. Anxiety/insomnia, Ativan given with stated improvement. Continue with plan of care.
[2017-01-20 05:18] VITALS: BP 145/86; PULSE 67; RESP 16; O2SAT 95
[2017-01-20 06:29] LABS: BASOPHILS % (AUTO) 0.1 % (0-3); EOSINOPHILS % (AUTO) 0 % (0-5); MONOCYTES % (AUTO) 5.6 % (4-12); Mean Corpuscular Hemoglobin 30.6 pg (27.0-35.0); NEUTROPHILS % (AUTO) 79.3 % (40-74); Platelet Count 335 bil/L (150-400)
[2017-01-20] MEDS: LEVOTHYROXINE PO SCH (06:34)
[2017-01-20] MEDS: LORazepam 1 mg Tablet SL PRN (06:41)
[2017-01-20] MEDS: Pantoprazole 4 mg/mL 10 mL Inj IVPUSH SCH (07:52)
[2017-01-20] MEDS ORDERED: Glucose 40% Oral Gel 15 Gm Tube PO PRN (07:55)
[2017-01-20] MEDS ORDERED: Sodium Chloride LOK Flush 10 mL Syringe IVFLUSH PRN ×2 (08:10)
--- NOTE | 2017-01-20 08:11 | PCM.PNMED ---
Subjective Date of Service Jan 20, 2017 Subjective Patient is wondering whether she can have a PICC line for easier IV access she is having problems with her current IV. She notes no new changes overnight. She denies any generalized edema but does still have significant edema surrounding her right and left a show low work and neck areas. Right persistently worse than left. Exam Vital Signs Vital Sign - Last Date Time Temp Pulse Resp B/P Pulse Ox O2 Delivery O2 Flow Rate FiO2 01/20/17 05:18 36.7 67 16 145/86 95 Room Air 01/18/17 19:45 2.00 Intake and Output 01/19/17 01/19/17 01/20/17 Cumulative From/Thru 14:59 22:59 06:59 01/14/17 14:13 - 01/20/17 05:18 Intake Total 1736 ml 3720 ml 26068 ml Output Total 3000 ml 6300 ml 38328 ml Balance -1264 ml -2580 ml -9189 ml Intake Oral 1436 ml 2800 ml 50815 ml IV Total 300 ml 920 ml 7704 ml Output Urine Total 3000 ml 6300 ml 39877 ml # Voids 5 # Bowel Movements 2 4 8 Exam Constitutional: Middle-aged female in mild pain distress Head: Swelling of bilateral face right greater than left with some tenderness and erythema particularly over the zygomatic area. And over the right neck area. Mouth: No visible lesions. Neck: Increased tenderness and swelling and some erythema on the right side Chest: Clear to auscultation Cor: Regular rate and rhythm S1-S2 Abdomen: Soft nontender bowel sounds present Extremities: No pedal edema noted Neuro: Alert and oriented 3, motor strength is intact bilaterally Lab and Diagnostics Laboratory Tests 72 Hours Test 01/17/17 08:21 01/18/17 05:35 01/20/17 06:17 Vancomycin Level Trough 7.6mcg/mL White Blood Count 10.4th/mm3 (3.8-10.1) 11.3th/mm3 (3.8-10.1) Red Blood Count 4.52mil/mm3 (3.90-5.20) 4.31mil/mm3 (3.90-5.20) Hemoglobin 14.0g/dL (12.0-15.6) 13.2g/dL (12.0-15.6) Hematocrit 41.3% (35.0-46.0) 37.5% (35.0-46.0) Mean Corpuscular Volume 91.4fL (81-100) 87.0fL (81-100) Mean Corpuscular Hemoglobin 31.0pg (27.0-35.0) 30.6pg (27.0-35.0) Mean Corpuscular Hemoglobin Concent 33.9% (32.0-37.0) 35.2% (32.0-37.0) Red Cell Distribution Width 12.8% (12.3-15.4) 12.7% (12.3-15.4) Platelet Count 353bil/L (150-400) 335bil/L (150-400) Neutrophils (%) (Auto) 78.4% (40-74) 79.3% (40-74) Lymphocytes (%) (Auto) 14.1% (14-46) 13.4% (14-46) Monocytes (%) (Auto) 6.2% (4-12) 5.6% (4-12) Eosinophils (%) (Auto) 0% (0-5) 0% (0-5) Basophils (%) (Auto) 0.1% (0-3) 0.1% (0-3) Sodium Level 133mEq/L (134-144) 132mEq/L (134-144) Potassium Level 4.8mEq/L (3.5-5.2) 4.7mEq/L (3.5-5.2) Chloride Level 91mEq/L (97-108) 94mEq/L (97-108) Carbon Dioxide Level 27mmol/L (18-29) 27mmol/L (18-29) Blood Urea Nitrogen 22mg/dL (6-24) 24mg/dL (6-24) Creatinine 0.62mg/dL (0.57-1.00) 0.53mg/dL (0.57-1.00) Estimat Glomerular Filtration Rate 148mL/min (>59) 178mL/min (>59) Glucose Level 319mg/dL (60-99) 300mg/dL (60-99) Hemoglobin A1c 5.7% (4.8-5.6) Calcium Level 8.4mg/dL (8.5-10.1) 8.0mg/dL (8.5-10.1) Total Bilirubin 0.2mg/dL (0.0-1.2) Aspartate Amino Transf (AST/SGOT) 20U/L (0-50) Alanine Aminotransferase (ALT/SGPT) 43U/L (0-32) Alkaline Phosphatase 53U/L (25-150) Total Protein 6.6g/dL (6.4-8.4) Albumin 3.8g/dL (3.4-5.0) Result Diagram: 01/20/1761601/20/17616 X-Rays, CTs and MRIs Neck X-ray : No apparent compromise of the airway. No soft tissue mass demonstrated. No foreign body seenPROCEDURE: CT NECK SOFT TISSUES WITH CONTRAST ([id number]) INDICATIONS: SWELLING/ HISTORY OF THYROID CANCER TECHNIQUE: After the administration of intravenous contrast, 3.0 mm axial sections acquired from the sella to the aortic arch. Additional oblique axial 3.0 mm sections acquired through the pharynx. 3 mm thick coronal reformats were generated. For radiation dose reduction, the following was used: automated exposure control. COMPARISON: [facility], CT, CT NECK SOFT TISSUE W CON, 06/28/2016, 7 :55. FINDINGS: Image quality: Excellent. Lymph nodes: No enlarged lymph nodes seen throughout the neck. Vessels: Visualized vasculature appears patent. Neck spaces: Postsurgical changes are present in the right neck. Again noted is a mass involving the right adrenal cord measuring 0.9 x 1.3 cm. It appears unchanged. The oropharynx, nasopharynx, and pharynx demonstrate no mucosal lesions. The vocal cords, false vocal cords, pyriform sinuses, epiglottis, vallecula, and tongue base all appear normal. Extramucosal spaces appear unremarkable. Glands: There are several small soft tissue nodules in the right parotid gland measuring up to 1 cm. The right submandibular gland is absent. There is a 1 x 1.5 cm right submandibular lymph node, which has decreased in size (previously 1.8 x 2.3 cm). Thyroid gland is absent. Miscellaneous: Visualized brain and orbits appear normal. Lung apices appear clear. Superficial soft tissues appear normal. Bones: No suspicious bony lesions. Visualized sinuses and mastoids appear unremarkable. IMPRESSION: 1. 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 2. Decreasing size of an enlarged right centimeter lymph node. 3. Multiple prominent soft tissue nodules in the right parotid glands. Differential diagnoses include intraparotid lymph nodes versus benign or malignant salivary gland tumors such as pleomorphic adenoma and mucoepidermoid carcinoma. Recommend clinical correlation and followup. 4. Thyroidectomy and right neck postsurgical changes.. Dictated by: Jorge Hanna M.D. on 01/17/2017 at 21:22 Transcribed by: TOMY on 01/17/2017 at 21:32 Assessment & Plan 1)Suspected Facial Cellulitis vs lymphedema versus Kichiki-Fujumoto Disease with flair up.: patient failed outpatient antibiotics -Pt had this present identically in the past - will treat with vancomycin, unasyn, and dexamethasone - will watch for airway compromise - pt will need to be on continuous pulse oximetry - as per patient it is improving - awaiting MRSA screen - ID consutl appreciated. Results of CT scan of soft tissue of neck have been reviewed by myself and are listed above. -Infectious disease recommended consulting ENT. ENT, Dr. Morrow did see the patient yesterday and this is a portion of his consult note: IMPRESSION: Complicated history of autoimmune disease with facial and intermittent swelling of the throat with a Jakub injection. Her recent endoscopy does show no acute infection of her lower throat. She does have a patent airway although it appears to be more narrowed than normal because of the Jakub injection. PLAN: I would suggest possible referral to the [facility] for evaluation of the larynx. A decision could be made since she has had multiple intubations, some of which have been difficult, that they could consider perhaps Jakub removal or partial cord lateralization. Thank you very much for asking me to see her and will follow her with you. I did contact earlier today [facility] transfer center and did speak with ENT supervisor television chassis repair Dr. Brennan Tellez who was amenable to having the patient transferred there however at this point there are no beds available so patient is on waiting list for transfer. Dr. Tellez did note that if symptoms progress to please notify him sooner. We will get speech therapy swallow eval. She is complaining of some dysphagia up her correct with pills. 3) Hypertension : Controlled0- will continue with metoprolol 4) Hypothyroidism : On hormonal supplement 5) History of thyroid cancer : On remission Heparin for DVT prophylaxis Regular diet Anticipated pt stay longer than 2 midnights VTE Prophylaxis: Sub-Q Heparin (Unfractionated) VTE Mechanical Devices: Intermittant Pneumatic CD Resuscitation Status: CPR: Attempt Resuscitation Time spent 30 minutes Callie Issa MD Jan 20, 2017 08:11
[2017-01-20] MEDS: Vancomycin Dose per Pharmacist XX SCH (08:30)
[2017-01-20] MEDS: Magnesium Hydroxide 10 mL Oral Concentration PO PRN ×2 (08:44→21:25)
[2017-01-20] MEDS: Insulin LISPRO 300 Unit/3 mL Inj SUBQ SCH ×4 (08:47→20:48)
[2017-01-20] MEDS: Senna-Docusate 8.6-50 mg Tablet PO SCH (08:47)
--- NOTE | 2017-01-20 12:18 | DRSVH ---
PROCEDURE: X-RAY PICC LINE PLACEMENT BY NURSE ([id number]) INDICATIONS: iv vancomycin and access COMPARISON: None. FINDINGS: PICC was placed by the intravenous therapy team from the right side. Fluoroscopic spot fi lm demonstrates tip of PICC in the distal SVC. IMPRESSION: Tip of PICC lies within the distal SVC. Dictated by: Bob Alfred M.D. on 01/20/2017 at 12:17 Approved by: Bob Alfred M.D. on 01/20/2017 at 12:18
[2017-01-20] MEDS: Heparin 5,000 Unit/mL Inj SUBQ SCH ×2 (12:55→20:26)
--- NOTE | 2017-01-20 13:40 | NUR ---
Late medications/Anxiety P: Right AC PIV causing pt discomfort and leaking at start of shift. Able to flush and administer pain medications but after that were unable to run antibiotics and other medications. MD notified. I: Order received to place PICC line. Pt unable to tolerate procedure without IV Ativan so PIV started in L hand prior to procedure. 0.5mg Ativan given IV prior to starting; IV therapist phone that pt required more medication, Dr. Issa paged and order received to give additional 0.5 mg at that time and permanently change dose to 0.5mg-1mg q 4hrs. E: PICC line successfully placed. IV Unasyn started at 1200 with a missed dose. IV Vancomycin will be administered next. Pt is drowsy and denies anxiety at this time, placed on CPOx for safety.
[2017-01-20] MEDS: Vancomycin Inj 2,000 MG in 0.9% Sodium Chloride 500 ML IV SCH ×2 (13:54→21:30)
[2017-01-20 14:30] VITALS: BP 149/80; PULSE 72; RESP 16; O2SAT 98
--- NOTE | 2017-01-20 15:09 | NUR ---
Evaluation completed. Please go to "Notes" then click on "Assessments and Notes" (bottom left corner of screen). Then select appropriate discipline tab on top of screen.
--- NOTE | 2017-01-20 17:51 | NUR ---
Social Work: Continued Discharge Planning D: Pt is currently on day 6 of stay. Pt is currently awaiting a transfer bed at [facility]. Pt has been accepted with Dr. Brennan Tellez to follow pending bed. Pt continues to be I during admission. ST saw pt for evaluation today due to some dysphagia. They are recommending soft/thin diet. No further needs identified at this time. A: Pt who is awaiting transfer to . P: Anticipate pt to transfer to pending bed status; SCHEDULE PLANNING MANAGER to continue to follow and assist if needs arise. Elaine Cortez MSW
[2017-01-20 20:30] VITALS: BP 164/70; PULSE 80; RESP 16; O2SAT 99
[2017-01-20] MEDS: Ondansetron 2 mg/mL 2 mL Inj IVPUSH PRN (22:01)
--- NOTE | 2017-01-21 00:14 | NUR ---
PAIN/GI; Benadryl given before decadron per pt request- tolerated decadron ok. Zofran given per pt request before dilaudid for c/o queasiness with relief. Pt drinking lots of water and voiding well per bathroom. Addendum: 01/21/17 at 0019 by KAIA CARDONA RN at the bedside.
[2017-01-21] MEDS: HYDROmorphone 1 mg/mL Inj IVPUSH PRN ×5 (01:08→13:57)
[2017-01-21] MEDS: LORazepam 1 mg Tablet SL PRN ×2 (01:55→13:46)
[2017-01-21] MEDS: Ampicillin-Sulbactam Inj 3,000 MG in 0.9% Sodium Chloride 100 ML IV SCH ×2 (03:57→11:43)
[2017-01-21] MEDS: Heparin 5,000 Unit/mL Inj SUBQ SCH ×2 (04:13→13:40)
[2017-01-21 04:15] LABS: BASOPHILS % (AUTO) 0.1 % (0-3); EOSINOPHILS % (AUTO) 0 % (0-5); MONOCYTES % (AUTO) 4.6 % (4-12); Mean Corpuscular Hemoglobin 30.5 pg (27.0-35.0); Mean Corpuscular Volume 90.8 fL (81-100); NEUTROPHILS % (AUTO) 80.9 % (40-74); Platelet Count 289 bil/L (150-400)
--- NOTE | 2017-01-21 04:31 | NUR ---
LABS; drawn without problems.
[2017-01-21 04:45] VITALS: BP 148/83; PULSE 72; RESP 16; O2SAT 96
--- NOTE | 2017-01-21 06:43 | NUR ---
PSYCH; pt slept in short intervals during the night. Asleep at this time. Plan; request day shift rn give synthroid.
[2017-01-21] MEDS: LEVOTHYROXINE PO SCH (07:21)
[2017-01-21] MEDS: Pantoprazole 4 mg/mL 10 mL Inj IVPUSH SCH (07:22)
[2017-01-21] MEDS: Dexamethasone Inj 10 MG in 0.9% Sodium Chloride-Pha MIX 50 ML IV SCH (07:59)
[2017-01-21] MEDS: Insulin LISPRO 300 Unit/3 mL Inj SUBQ SCH ×2 (08:10→11:44)
[2017-01-21] MEDS: Vancomycin Dose per Pharmacist XX SCH (08:30)
[2017-01-21] MEDS ORDERED: Calcium Carbonate 1250 mg/5 mL Suspension PO ONE (10:10)
[2017-01-21] MEDS: Multivitamins w/Minerals 5 mL Liquid Supplement PO SCH (11:41)
[2017-01-21] MEDS: Senna-Docusate 8.6-50 mg Tablet PO SCH (11:42)
--- NOTE | 2017-01-21 12:12 | NUR ---
Vanco P: Vancomycin dose ordered for 0900, dose not in [facility] to administer. Pt requesting shower, which would delay further. No Vanco trough since 01/17. I: Pharmacy contacted, discussed with pharmacist. Okay to administer, vanco trough to be drawn tonight and dosing adjusted tomorrow. Will administer as soon as pharmacy brings dose. E: Creatinine levels stable. WBC improving.
[2017-01-21] MEDS: Vancomycin Inj 2,000 MG in 0.9% Sodium Chloride 500 ML IV SCH (12:20)
[2017-01-21 12:53] VITALS: BP 135/79; PULSE 67; RESP 16; O2SAT 97
--- NOTE | 2017-01-21 13:59 | PCM.DC.MED ---
Discharge Summary Date of Service Jan 21, 2017 Dates of Hospitalization Date of Hospital Admission Jan 14, 2017 at 16:27 Date of Discharge: Jan 21, 2017 Providers: Admitting Physician: Gregory Adamson MD Primary Care Physician: Other,Physician Attending Physician: Gregory Adamson MD Diagnosis at Time of Discharge Diagnosis at Time of Discharge Right facial cellulitis, possible laryngeal narrowing requiring further evaluation at the [facility]. Consultations Infectious disease, otolaryngology Procedures XRay, CTs & MRIs Neck X-ray : No apparent compromise of the airway. No soft tissue mass demonstrated. No foreign body seenPROCEDURE: CT NECK SOFT TISSUES WITH CONTRAST ([id number]) INDICATIONS: SWELLING/ HISTORY OF THYROID CANCER TECHNIQUE: After the administration of intravenous contrast, 3.0 mm axial sections acquired from the sella to the aortic arch. Additional oblique axial 3.0 mm sections acquired through the pharynx. 3 mm thick coronal reformats were generated. For radiation dose reduction, the following was used: automated exposure control. COMPARISON: [facility], CT, CT NECK SOFT TISSUE W CON, 06/28/2016, 7 :55. FINDINGS: Image quality: Excellent. Lymph nodes: No enlarged lymph nodes seen throughout the neck. Vessels: Visualized vasculature appears patent. Neck spaces: Postsurgical changes are present in the right neck. Again noted is a mass involving the right adrenal cord measuring 0.9 x 1.3 cm. It appears unchanged. The oropharynx, nasopharynx, and pharynx demonstrate no mucosal lesions. The vocal cords, false vocal cords, pyriform sinuses, epiglottis, vallecula, and tongue base all appear normal. Extramucosal spaces appear unremarkable. Glands: There are several small soft tissue nodules in the right parotid gland measuring up to 1 cm. The right submandibular gland is absent. There is a 1 x 1.5 cm right submandibular lymph node, which has decreased in size (previously 1.8 x 2.3 cm). Thyroid gland is absent. Miscellaneous: Visualized brain and orbits appear normal. Lung apices appear clear. Superficial soft tissues appear normal. Bones: No suspicious bony lesions. Visualized sinuses and mastoids appear unremarkable. IMPRESSION: 1. 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 2. Decreasing size of an enlarged right centimeter lymph node. 3. Multiple prominent soft tissue nodules in the right parotid glands. Differential diagnoses include intraparotid lymph nodes versus benign or malignant salivary gland tumors such as pleomorphic adenoma and mucoepidermoid carcinoma. Recommend clinical correlation and followup. 4. Thyroidectomy and right neck postsurgical changes.. Dictated by: Jorge Hanna M.D. on 01/17/2017 at 21:22 Transcribed by: TOMY on 01/17/2017 at 21:32 Brief History This is a 46 y/o female with past medical history of Kikuchi -riya syndrome (necrotizing lymphadenitis), hypothyroidism, Ann syndrome, hypertension, presenting to the ED c/o right-sided jaw/facial pain and swelling for 5 days or so. She was seen here in the ED on 01/09/17 was diagnosed with pharyngitis and sent home on Decadron and Augmentin. She has been taking these medications as directed and has not noticed much improvement. Her throat condition has required intubation multiple times in the past. Patient stated her airway can get obstructed very quicly . ENT Dr. Yariel Saul was contacted by NIKUNJ esposito and remained available for consultation should that become necessary She denies fever, dysphagia, shortness of breath , fever, chills, nausea, vomiting, diarrhea. Hospital Course 1)Suspected Facial Cellulitis vs lymphedema versus Kichiki-Fujumoto Disease with flair up.: patient failed outpatient antibiotics -Pt had this present identically in the past - will treat with vancomycin, unasyn, and dexamethasone - will watch for airway compromise - pt will need to be on continuous pulse oximetry - as per patient it is improving - awaiting MRSA screen - ID consutl appreciated. Results of CT scan of soft tissue of neck have been reviewed by myself and are listed above. -Infectious disease recommended consulting ENT. ENT, Dr. Morrow did see the patient several days ago and this is a portion of his consult note: IMPRESSION: Complicated history of autoimmune disease with facial and intermittent swelling of the throat with a Jakub injection. Her recent endoscopy does show no acute infection of her lower throat. She does have a patent airway although it appears to be more narrowed than normal because of the Jakub injection. PLAN: I would suggest possible referral to the [facility] for evaluation of the larynx. A decision could be made since she has had multiple intubations, some of which have been difficult, that they could consider perhaps Jakub removal or partial cord lateralization. Thank you very much for asking me to see her and will follow her with you. I did contact earlier [facility] transfer center and did speak with ENT superintendent overhead distribution Dr. Brennan Tellez who was amenable to having the patient transferred there however at this point there are no beds available so patient is on waiting list for transfer. Dr. Tellez did note that if symptoms progress to please notify him sooner. We will get speech therapy swallow eval. She is complaining of some dysphagia up her correct with pills. 3) Hypertension : Controlled0- will continue with metoprolol 4) Hypothyroidism : On hormonal supplement 5) History of thyroid cancer : On remission Heparin for DVT prophylaxis Regular diet Anticipated pt stay longer than 2 midnights Exam Vital Signs (Last) Date Time Temp Pulse Resp B/P Pulse Ox O2 Delivery O2 Flow Rate FiO2 01/21/17 12:53 36.6 67 16 135/79 97 Room Air 01/18/17 19:45 2.00 Exam Constitutional: Middle-aged female in mild pain distress Head: Swelling of bilateral face right greater than left with some tenderness and erythema particularly over the zygomatic area. And over the right neck area. Mouth: No visible lesions. Neck: Increased tenderness and swelling and some erythema on the right side Chest: Clear to auscultation Cor: Regular rate and rhythm S1-S2 Abdomen: Soft nontender bowel sounds present Extremities: No pedal edema noted Neuro: Alert and oriented 3, motor strength is intact bilaterally Test 01/14/17 16:02 01/15/17 05:35 01/15/17 17:58 01/16/17 12:20 Erythrocyte Sedimentation Rate 18mm/hr (0-32) Hold Lund Top Tube Received (Received) Streptozyme 629.9IU/mL (0.0-200.0) Anti-DNase B (Streptococcal) <78U/mL (0-120) Urine Color Straw (YELLOW) Urine Appearance Clear (CLEAR,HAZY) Urine pH 6.5 (5.0-8.0) Urine Specific [place] 1.005 (1.003-1.035) Urine Protein Negativemg/dL (NEG,TRACE) Urine Glucose (UA) Negativemg/dL (NEGATIVE) Urine Ketones Negativemg/dL (NEGATIVE) Urine Occult Blood Negative (NEGATIVE) Urine Nitrite Negative (NEGATIVE) Urine Bilirubin Negative (NEGATIVE) Urine Urobilinogen Normalmg/dL (NORMAL) Urine Leukocyte Esterase Negative (NEGATIVE) Urine RBC 0-2/hpf (0-2) Urine WBC 0-5/hpf (0-5) Urine Epithelial Cells None/hpf (NONE-MOD) Urine Crystals None seen (NONE SEEN) Urine Bacteria None/hpf (NONE-FEW) Urine Hyaline Casts None/lpf (NONE) Urine Granular Casts None seen (NONE SEEN) Urine Waxy Casts None seen (NONE SEEN) Urine Red Blood Cell Casts None seen (NONE SEEN) Urine White Blood Cell Casts None seen (NONE SEEN) Urine Mucus None seen (None Seen) Urine Trichomonas None seen (NONE SEEN) Urine Yeast None (NONE SEEN) Urinalysis Comment None Urine Culture Reflexed Not indicated Anti-Nuclear Antibody Screen Negative (Negative) Test 01/17/17 08:21 01/18/17 05:35 01/21/17 04:00 Vancomycin Level Trough 7.6mcg/mL Hemoglobin A1c 5.7% (4.8-5.6) White Blood Count 10.5th/mm3 (3.8-10.1) Red Blood Count 4.13mil/mm3 (3.90-5.20) Hemoglobin 12.6g/dL (12.0-15.6) Hematocrit 37.5% (35.0-46.0) Mean Corpuscular Volume 90.8fL (81-100) Mean Corpuscular Hemoglobin 30.5pg (27.0-35.0) Mean Corpuscular Hemoglobin Concent 33.6% (32.0-37.0) Red Cell Distribution Width 12.5% (12.3-15.4) Platelet Count 289bil/L (150-400) Neutrophils (%) (Auto) 80.9% (40-74) Lymphocytes (%) (Auto) 12.9% (14-46) Monocytes (%) (Auto) 4.6% (4-12) Eosinophils (%) (Auto) 0% (0-5) Basophils (%) (Auto) 0.1% (0-3) Sodium Level 138mEq/L (134-144) Potassium Level 4.6mEq/L (3.5-5.2) Chloride Level 95mEq/L (97-108) Carbon Dioxide Level 31mmol/L (18-29) Blood Urea Nitrogen 18mg/dL (6-24) Creatinine 0.60mg/dL (0.57-1.00) Estimat Glomerular Filtration Rate 154mL/min (>59) Glucose Level 329mg/dL (60-99) Calcium Level 7.6mg/dL (8.5-10.1) Total Bilirubin 0.2mg/dL (0.0-1.2) Aspartate Amino Transf (AST/SGOT) 22U/L (0-50) Alanine Aminotransferase (ALT/SGPT) 54U/L (0-32) Alkaline Phosphatase 52U/L (25-150) Total Protein 6.1g/dL (6.4-8.4) Albumin 3.8g/dL (3.4-5.0) Discharge Medications Discharge Medications Ascorbic Acid (Vitamin C) 1,000 Mg Tab.chew 1,000 MG PO DAILY (Reported) Cholecalciferol (Vitamin D3) (Vitamin D3) 5,000 Unit Capsule 5,000 UNIT PO DAILY (Reported) Hydrochlorothiazide (Hydrochlorothiazide) 25 Mg Tablet 25 MG PO DAILY (Reported ) Levothyroxine (Synthroid) 300 Mcg Tablet 300 MCG PO DAILY (Reported) Metoprolol Tartrate (Metoprolol Tartrate) 25 Mg Tablet 25 MG PO BID (Reported) Multivitamin (Multi Vitamin Daily) 1 Each Tablet 1 EACH PO DAILY (Reported) Omeprazole (Omeprazole) 20 Mg Tablet. 20 MG PO DAILY (Reported) Followup Plan Disposition: Transfer to the [facility] Time spent 60 minutes Callie Issa MD Jan 21, 2017 13:59
--- NOTE | 2017-01-21 14:58 | NUR ---
Social Work -Discharge D: Pt is currently on day 7 of stay. Pt to transfer to [facility]. Pt has been accepted with Dr. Brennan Tellez to follow. Pt continues to be I during admission. No further needs identified at this time. A: Pt who will transfer to [facility]. P: Pt to transfer to [facility] today. No further needs identified at this time. Roxann Vazquez, PUMP HOUSE OPERATOR
--- NOTE | 2017-01-21 15:57 | NUR ---
Transfer to Pt transfer to at 1545 via BLS. Report given to JOHN Kovacs at and all questions answered. Pt has home Synthroid medication with her and receiving facility is aware of this. Daniele has all of her other belongings and is following them to . Pt was premedicated for pain and anxiety prior to transport.
[2017-01-21] MEDS ORDERED: Vancomycin Serum Trough XX ONE (19:00)
[2017-01-21] MEDS ORDERED: Insulin GLARgine 100 Unit/mL Syringe SUBQ SCH (21:00)
[2017-01-22] MEDS ORDERED: Pantoprazole 4 mg/mL 10 mL Inj IVPUSH SCH (21:00)
== END 2017-01-21 15:30 | disposition short-term general hospital (02) | DRG 603 ==
LOC: SED 14:07 → OSC 16:27
PROVIDERS: ADMIT Internal Medicine; ATTEND Internal Medicine
PROC: 0CJ Mouth and Throat, Inspection (ICD-10-PCS; principal; 2017-01-18)
DX: L03.211 Cellulitis of face (principal); I10 Essential (primary) hypertension; E78.5 Hyperlipidemia, unspecified; E03.9 Hypothyroidism, unspecified; I88.1 Chronic lymphadenitis, except mesenteric; Z85.850 Personal history of malignant neoplasm of thyroid; J38.6 Stenosis of larynx

== ENCOUNTER 2017-01-30 18:54 | Inpatient (IN) | payer OTHER ==
[~2017-01-30] VITALS: Ht 172.7 cm; Wt 124.8 kg
[~2017-01-30 18:54] MED LIST changes: +ASCO100089 PO; +HYDR25TA4 PO
[2017-01-30 19:02] VITALS: BP 146/75; PULSE 113; RESP 25; O2SAT 94
--- NOTE | 2017-01-30 19:02 | ED.REPORT ---
HPI-General Illness Date of Service Jan 30, 2017 ED Provider: Kranthi Mcgrath MD 46 year old female with a history of thyroid carcinoma status post radioisotope I 131 4, irradiation, and thyroidectomy in remission, paralyzed right vocal cord, Kikuchi syndrome, and Ann syndrome presents to the ER accompanied by her complaining of sudden onset shortness of breath and generalized weakness status post discharge from after being treated for jaw pain. states that the patient was originally seen here in the ER three weeks ago for jaw pain that was thought to be due to Dayan's, admitted to the hospital here for two weeks, then transported by EMS to where they continued with steroids and antibiotics, before all medications to see if they could elicit a culture. Patient was discharged from three days ago, Dr. Tellez was the lead physician during her visit at . Associated symptoms include pleuritic pain, fever (101.3F), nausea, vomiting, . Patient denies . Dr. Bales recently did a biopsy which was negative. Nursing Notes Stated Complaint: SHORTNESS OF BREATH Chief Complaint: Respiratory Distress Nursing Notes Reviewed: Yes Allergies: Coded Allergies: dexamethasone (Verified Adverse Reaction, Intermediate, 05/17/16) RASH AND ITCH-NEED PREMED WITH BENADRYL IF RECEIVING. methylprednisolone (Verified Adverse Reaction, Intermediate, HIVES, ) promethazine (Verified Adverse Reaction, Intermediate, NAUSEA AND VOMITTING, 05/17/16) Scheduled Ascorbic Acid (Vitamin C) 1,000 Mg Tab.chew 1,000 MG PO DAILY Cholecalciferol (Vitamin D3) (Vitamin D3) 5,000 Unit Capsule 5,000 UNIT PO DAILY Gabapentin (Gabapentin) 300 Mg Capsule 300 MG PO TID Hydrochlorothiazide (Hydrochlorothiazide) 25 Mg Tablet 25 MG PO DAILY Levothyroxine (Synthroid) 300 Mcg Tablet 300 MCG PO DAILY Metoprolol Tartrate (Metoprolol Tartrate) 25 Mg Tablet 25 MG PO BID Multivitamin (Multi Vitamin Daily) 1 Each Tablet 1 EACH PO DAILY Omeprazole (Omeprazole) 20 Mg Tablet.dr 20 MG PO DAILY Scheduled PRN Hydromorphone (Hydromorphone) 2 Mg Tablet 2-4 MG PO Q6H PRN PRN For Pain General Time Seen by MD: 19:02 Chief Complaint Other (Shortness of Breath) Hx Obtained From: Patient, Spouse Arrived By: Walk-in Sudden in Onset?: No Onset Occurred: 3 days ago Symptom Duration: Since onset Associated with: Reports: Cough, Difficulty breathing, Fever, Nausea, Vomiting , Denies: Abdominal pain, Chest pain Pertinent Negative: Pt denies other symptoms Recent Healthcare: Recent doctor visit, Recent hospitalization Past Medical History Past Medical History Notes: The pt is seen by ENT physician Dr. Berkowitz at . Past Medical History 1. Hyperlipidemia. 2. 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 3. Paralyzed right vocal cord. 4. 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 Endometriosis 7. Hypertension 8. Right Submandibular Node, negative for malignancy. Past Surgical History 1. Appendectomy. 2. Total abdominal hysterectomy. 3. Tonsillectomy - with biopsy - benign 4. Thyroidectomy. Family History Mother who is living with previous ND 3 earliest age 21 years of age, CVA 3, and cardiac arrest. Father with diabetes mellitus diagnosed in his 70s. Smoking History Never Smoker Social History Alcohol Use: Denies alcohol use Drug Use: Denies drug use Other Social History: Good social support, , Local resident Ambulatory Status Independent Review of Systems Full Review of Systems Constitutional: Reports: Fever Respiratory: Reports: Non-productive cough, Pleuritic pain, Shortness of breath , Denies: Hemoptysis Cardiovascular: Denies: Chest pain GI: Reports: Nausea, Vomiting, Denies: Abdominal pain, Diarrhea, Hematemesis, Hematochezia Female: Denies: Dysuria Complete sys rev & neg: except as marked. Physical Exam Vital Signs Vital Signs Date Time Temp Pulse Resp B/P Pulse Ox O2 Delivery O2 Flow Rate FiO2 01/30/17 21:21 131 18 127/58 95 Room Air 01/30/17 20:07 120 28 145/84 96 Room Air 01/30/17 19:02 37.9 113 25 146/75 94 Initial VS: Reviewed Head / Eyes: Atraumatic, Normocephalic Abdomen / GI: Soft, Non-tender, No guarding, No rebound, No distention Extremities: Vascular intact, Neuro intact, No swelling, No tenderness Skin: Warm, Dry, No cyanosis Neurologic: Alert, Oriented, Nonfocal General/Constitutional: Awake, Alert, Well developed, Well nourished Appearance / Presentation: Positive: Ill appearing/not toxic, In pain, Uncomfortable Neck: Supple, Full range of motion, Non-tender, No midline vertebral tend Well-healed surgical scars about the right anterior neck consistent with prior surgeries. Respiratory / Chest: Breath sounds NL, No respiratory distress, No rales, No rhonchi, No wheezing Tachypneic Cardiovascular: Regular rhythm, No gallop, No murmurs, No rubs Heart Rate / Rhythm: Positive: Tachycardia Interpretation & Diagnostics Lab Results Interpretation Result Diagram: 01/30/17190201/30/171902 Test 01/30/17 19:03 01/30/17 19:15 01/30/17 20:52 White Blood Count 16.4th/mm3 (3.8-10.1) Red Blood Count 5.05mil/mm3 (3.90-5.20) Hemoglobin 15.2g/dL (12.0-15.6) Hematocrit 45.3% (35.0-46.0) Mean Corpuscular Volume 89.7fL (81-100) Mean Corpuscular Hemoglobin 30.1pg (27.0-35.0) Mean Corpuscular Hemoglobin Concent 33.6% (32.0-37.0) Red Cell Distribution Width 13.2% (12.3-15.4) Platelet Count 259bil/L (150-400) Neutrophils (%) (Auto) 68.2% (40-74) Lymphocytes (%) (Auto) 23.5% (14-46) Monocytes (%) (Auto) 6.8% (4-12) Eosinophils (%) (Auto) 1.1% (0-5) Basophils (%) (Auto) 0.2% (0-3) Sodium Level 137mEq/L (134-144) Potassium Level 3.4mEq/L (3.5-5.2) Chloride Level 91mEq/L (97-108) Carbon Dioxide Level 26mmol/L (18-29) Blood Urea Nitrogen 10mg/dL (6-24) Creatinine 0.59mg/dL (0.57-1.00) Estimat Glomerular Filtration Rate 157mL/min (>59) Glucose Level 146mg/dL (60-99) Calcium Level 8.9mg/dL (8.5-10.1) Magnesium Level 1.5mg/dL (1.6-2.6) Total Bilirubin 0.4mg/dL (0.0-1.2) Aspartate Amino Transf (AST/SGOT) 29U/L (0-50) Alanine Aminotransferase (ALT/SGPT) 75U/L (0-32) Alkaline Phosphatase 74U/L (25-150) Troponin T < 0.010ug/L (0.0-0.011) Total Protein 8.2g/dL (6.4-8.4) Albumin 4.6g/dL (3.4-5.0) Procalcitonin 0.06ng/mL (0.00-0.08) Thyroid Stimulating Hormone (TSH) 9.190uIU/mL (0.450-4.500) Free Thyroxine 1.33ng/dL (0.82-1.77) Hold Lund Top Tube Received (Received) Hold Urine Received (Received) ECG Interpretation ECG Interpretation: Sinus tachycardia, rate 114 Normal axis Normal intervals No ST segment changes No acute T wave abnormalities Compared to prior ECG 05/17/2016 no acute changes. Time: 20:43 Interpreted by: ED physician X-Ray Chest Interpretation Chest Xray Interpretation: IMPRESSION: No acute disease Dictated by: Calvin Quintana M.D. on 01/30/2017 at 19:58 Approved by: Calvin Quintana M.D. on 01/30/2017 at 19:58 View: Portable, 1 view Interpretation / Wet Read by: Interpret - Radiologist CT Chest Interpretation IMPRESSION: Bilateral dependent areas of aspiration and mucoid impaction. Recommend clinical correlation to exclude superimposed infection. No gross or central pulmonary embolism, however evaluation of the distal/segmental branches is precluded by poor contrast opacification as discussed in detail above. Dictated by: Calvin Quintana M.D. on 01/30/2017 at 21:28 Approved by: Calvin Quintana M.D. on 01/30/2017 at 21:34 Study type: CT pulm angiogram Interpretation / Wet Read by: Interpret - Radiologist Re-Eval/Medical Decision Med Decision/Clinical Course 46 year old female with a history of thyroid carcinoma status post radioisotope I 131 4, irradiation, and thyroidectomy in remission, paralyzed right vocal cord, Kikuchi syndrome, and Ann syndrome presents to the ER accompanied by her complaining of sudden onset shortness of breath and generalized weakness status post discharge from , records from [facility] cannot be obtained. Came in with fever of 37.9C Tachycardic at 113 Tachypnea 25 Patient appeared generally unwell. Lab studies notable as below: Leukocytosis 16.4 Lactate 2.8 K 3.4 Magnesium 1.5 TSH 9.19 FT4 1.3 (WNL) Mildly elevated ALT Troponin WNL Flu negative CXR: Obtained, reviewed and interpreted by myself shows no evidence of acute infiltrates, effusions or pneumothorax. Cardiac and mediastinal silhouette normal. No bony or soft tissue abnormalities. Patient was treated with the below medications: IV fluids Reglan Zofran Dilaudid Reviewed patient's admission from 01/14/2017 to 01/21/2017: Confirmed past medical history of thyroid carcinoma status post radioisotope I 131 4, irradiation, and thyroidectomy in remission, paralyzed right vocal cord, Kikuchi syndrome ( necrotizing lymphadenitis), and Ann syndrome. Presented with right side jaw facial pain and swelling not improved after previously being treated with Decadron and Augmentin. In the past she has been intubated multiple times due to throat swelling. Diagnosed with suspected facial cellulitis. Endoscopy revealed patent airway. Sent to for further management and evaluation due to complicated history. REcords cannot be obtained from due to "power outage". Presentation concerning for acute pulmonary embolism, therefore I obtained CT angiography of the chest that demonstrated no evidence thereof. Despite treatment with antipyretics, IV fluids and pain medication the patient remains tachycardic. In the setting of fever I suspect infectious process however influenza is negative and chest x-ray demonstrates no evidence of pneumonia. Abdominal examination completely benign and no evidence of acute surgical intra- abdominal process. No evidence of soft tissue infection. No evidence of upper airway obstruction, soft tissue infection of the neck. No symptoms of urinary tract infection. Cause of presentation remains unclear. Considered acute thyroid pathology though thyroid studies are nondiagnostic. Patient discussed with the medical hospitalist will be transferred for further monitoring and workup. Of note patient did meet SIRS criteria however given hemodynamic stability and unclear presentation we opted to withhold broad-spectrum antibiotics for the moment for further workup and investigation. Source of Hx: Old records Time of Eval: 21:40 Re-Evaluation/Progress Note: Discussed lab and radiology results and need for admission. Patient is amenable to the plan. All other questions addressed. Consultation : Referral / Consult Name: Germán Hartley MD Consulted With: Hospitalist Call Returned at: 21:52 Director Process: Agrees with eval, Agrees with plan, Accepts admit Counseled Regarding: Diagnosis, Lab results, Need for admission Discharge & Departure Primary Impression: Shortness of breath Additional Impressions: Tachycardia Tachypnea Fever Fever type: unspecified Qualified Code: R50.9 - Fever, unspecified Elevated lactic acid level Dehydration Elevated TSH Leukocytosis Leukocytosis type: unspecified Qualified Code: D72.829 - Elevated white blood cell count, unspecified Disposition: ADMITTED TO HOSPITAL Discharge Condition All VS Reviewed: Yes Condition: Stable Referrals: OTHER,PHYSICIAN (PCP) (Family) Crit Care Except Billable Proc Time Spent: 105-134 minutes Services Performed: Patient management by me, Time spent at bedside, Reviewing test results, Reviewing imaging, Discussing patient care, Documentation in record, Time with fam/surrogate Scribe Attestation Portions of this note were transcribed by Rashaad Arauz. I, Dr. Mcgrath, personally performed the history, physical exam and medical decision-making; I reviewed and confirmed the accuracy of the information in the transcribed note. Signed by: Aide Antonio, 01/30/2017 and 22:03 Kranthi Mcgrath MD Jan 30, 2017 19:02 RASHAAD ARAUZ Jan 30, 2017 20:11
[2017-01-30 19:21] LABS: EOSINOPHILS % (AUTO) 1.1 % (0-5)
[2017-01-30 19:23] LABS: BASOPHILS % (AUTO) 0.2 % (0-3); MONOCYTES % (AUTO) 6.8 % (4-12); Mean Corpuscular Hemoglobin 30.1 pg (27.0-35.0); Mean Corpuscular Volume 89.7 fL (81-100); NEUTROPHILS % (AUTO) 68.2 % (40-74); Platelet Count 259 bil/L (150-400)
[2017-01-30] MEDS ORDERED: Ondansetron 2 mg/mL 2 mL Inj ONE (19:43)
[2017-01-30 19:49] LABS: TROPONIN T < 0.010 ug/L (0.0-0.011)
[2017-01-30 19:59] LABS: Magnesium 1.5 mg/dL (1.6-2.6)
--- NOTE | 2017-01-30 19:59 | DRSVH ---
PROCEDURE: X-RAY CHEST ONE VIEW, PORTABLE ([id number]) INDICATIONS: shortness of breath TECHNIQUE: One view of the chest was acquired. COMPARISON: [facility], CR, XR CHEST 1VW (PORTABLE), 05/17/2016, 14:35. FINDINGS: Surgical changes and devices: None. Lungs and pleura: No pleural effusions or pneumothorax. Lungs are clear. Mediastinum: Mediastinal contours appear normal. Heart size is normal. Bones and chest wall: No suspicious bony lesions. Overlying soft tissues appear unremarkable. IMPRESSION: No acute disease Dictated by: Calvin Quintana M.D. on 01/30/2017 at 19:58 Approved by: Calvin Quintana M.D. on 01/30/2017 at 19:58
[2017-01-30 20:07] VITALS: BP 145/84; PULSE 120; RESP 28; O2SAT 96
[2017-01-30] MEDS ORDERED: HYDROmorphone 1 mg/mL Inj IVPUSH ONE (20:30)
[2017-01-30] MEDS ORDERED: 0.9% Sodium Chloride 1,000 ML IV ONE (20:30)
[2017-01-30] MEDS ORDERED: MetoCLOpramide 5 mg/mL 2 mL Inj IVPUSH PRN (20:30)
[2017-01-30 21:21] VITALS: BP 127/58; PULSE 131; RESP 18; O2SAT 95
--- NOTE | 2017-01-30 21:34 | DRSVH ---
PROCEDURE: CT ANGIO CHEST PULMONARY EMBOLISM ([id number]) INDICATIONS: sob, assess for PE TECHNIQUE: After the administration of intravenous contrast, 2 mm thick sections acquired from the pulmonary api colby to the posterior costophrenic angles. 3-dimensional maximum intensity projection (MIP) coronal a nd sagittal reformats were then acquired through the thorax. For radiation dose reduction, the follo wing was used: automated exposure control, adjustment of mA and/or kV according to patient size. COMPARISON: [facility], CR, XR CHEST 1VW (PORTABLE), 01/30/2017, 19:27. [facility], CT, CT ANGIO CHEST PE, 05/20/2016, 17:15. FINDINGS: Image quality: Suboptimal due to motion artifact. Pulmonary arteries: There is poor contrast opacification of the segmental pulmonary arteries in parti cular within the upper lobes bilaterally. No gross central filling defect seen within the central or lobar pulmonary arteries, however distal pulmonary embolism cannot be excluded. Lungs and pleura: Bilateral dependent areas of consolidation present within both lung bases, right gr eater than left. No pleural effusion or pneumothorax. Central airways appear grossly patent although there may be mucoid impaction in the posterior segments of the lower lobes bilaterally Mediastinum: Heart size is enlarged, without pericardial effusion. No mediastinal or hilar adenopat hy. Thoracic aorta is normal in caliber and enhancement. Esophagus is normal in caliber, without hi atal hernia. Bones and chest wall: No suspicious bony lesions. Ribs and thoracic spine appear intact throughout. . No axillary or supraclavicular adenopathy. Abdomen: Visualized upper abdominal solid organs appear normal in the early arterial phase of enhanc ement. IMPRESSION: Bilateral dependent areas of aspiration and mucoid impaction. Recommend clinical correlation to exclu de superimposed infection. No gross or central pulmonary embolism, however evaluation of the distal/segmental branches is preclu ded by poor contrast opacification as discussed in detail above. Dictated by: Calvin Quintana M.D. on 01/30/2017 at 21:28 Approved by: Calvin Quintana M.D. on 01/30/2017 at 21:34
[2017-01-30] MEDS ORDERED: Polyethylene Glycol (PEG) 17 Gm Powder PO PRN (22:00)
[2017-01-30] MEDS ORDERED: Magnesium Sulf 2 Gm/50mL Water 2 GM in IV Premix 1 EACH IV ONE (22:25)
[2017-01-30] MEDS ORDERED: Potassium Chloride 20 mEq SR Tablet PO ONE (22:30)
[2017-01-30 22:46] VITALS: BP 112/62; PULSE 116; RESP 21; O2SAT 94
[2017-01-30 22:59] VITALS: BP 113/67; PULSE 118; RESP 20; O2SAT 95
[2017-01-30] MEDS ORDERED: HYDR2TAB28 PO (23:14)
[2017-01-30] MEDS ORDERED: GABA-502 PO (23:14)
[2017-01-30] MEDS: 0.9% Sodium Chloride 1,000 ML IV SCH (23:26)
[2017-01-30] MEDS: Vancomycin Dose per Pharmacist XX SCH (23:40)
--- NOTE | 2017-01-30 23:55 | PCM.HPMED ---
Subjective Date of Service Jan 30, 2017 Primary Provider: Admitting Physician: Primary Care Physician: Other,Physician Attending Physician: Chief Complaint: Tachycardia with shortness of breathe History of Present Illness: Latrice Lockwood is a 46 year old female with a history of thyroid carcinoma status post radioisotope I 131 4, irradiation, and thyroidectomy in remission , paralyzed right vocal cord, Kikuchi syndrome, and Ann syndrome presents to [facility] emergency department due to acute shortness of breathe with weakness She was accompanied by her complaining of sudden onset shortness of breath and generalized weakness status post discharge from after being treated for jaw pain. Associated symptoms include pleuritic pain, fever (101.3F) , nausea, vomiting. She is coughing up some brownish colored phlegm. Denies any sick contacts at home but was hospitalized for a few weeks states that the patient was originally seen here in the ER three weeks ago for jaw pain that was thought to be due to Dayan's, admitted to the hospital here for two weeks, then transported by EMS to where they continued with steroids and antibiotics, before all medications to see if they could elicit a culture. She was discharged without any antibiotics Patient was discharged from three days ago, Dr. Tellez was the lead physician during her visit at . Case discussed with Dr Mcgrath, no infection identified and due abnormal heart rate and leukocytosis with lactic acidosis. Plans to admit for Iv fluids and close observation overnight. Flu negative. CT chest showed no Pulmonary embolism Review of Systems: Pertinent positives as noted in HPI. All other systems were reviewed and are negative Allergies Coded Allergies: dexamethasone (Verified Adverse Reaction, Intermediate, 05/17/16) RASH AND ITCH-NEED PREMED WITH BENADRYL IF RECEIVING. methylprednisolone (Verified Adverse Reaction, Intermediate, HIVES, ) promethazine (Verified Adverse Reaction, Intermediate, NAUSEA AND VOMITTING, 05/17/16) Home Medications From recent Discharge Summary Ascorbic Acid (Vitamin C) 1,000 Mg Tab.chew 1,000 MG PO DAILY (Reported) Cholecalciferol (Vitamin D3) (Vitamin D3) 5,000 Unit Capsule 5,000 UNIT PO DAILY (Reported) Hydrochlorothiazide (Hydrochlorothiazide) 25 Mg Tablet 25 MG PO DAILY (Reported ) Levothyroxine (Synthroid) 300 Mcg Tablet 300 MCG PO DAILY (Reported) Metoprolol Tartrate (Metoprolol Tartrate) 25 Mg Tablet 25 MG PO BID (Reported) Multivitamin (Multi Vitamin Daily) 1 Each Tablet 1 EACH PO DAILY (Reported) Omeprazole (Omeprazole) 20 Mg Tablet.dr 20 MG PO DAILY (Reported) PMH 1. Hyperlipidemia. 2. 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 Hypertension 8. Right Submandibular Node, negative for malignancy . Surgical History 1. Appendectomy. 2. Total abdominal hysterectomy. 3. Tonsillectomy - with biopsy - benign 4. Thyroidectomy. Family History Mother has coronary artery disease and type II diabetes father has type II diabetes Social History Hx Alcohol Use: Yes (occ) Hx Substance Use: No Hx Tobacco Use: No Smoking Status: Never Smoker Living Arrangement: with Family Exam Vital Signs Vital Sign - Last Date Time Temp Pulse Resp B/P Pulse Ox O2 Delivery O2 Flow Rate FiO2 01/30/17 21:21 131 18 127/58 95 Room Air 01/30/17 19:02 37.9 Exam General: Alert, Oriented X3, Cooperative, No acute Distress Eyes: PERRLA, Scleral Anicteric Mouth: Mouth Normal, Mucous Membranes Moist/[place] Neck: Supple, no Thyromegaly, trachea central. Chest & Lungs: decreased breathe sounds with crackles Cardiovascular: Normal S1, Normal S2, No Murmurs/Rubs/Gallops, sinus tachycardia (No JVD, no peripheral edema) Pulses: Radial (present and equal), Dorsalis Pedi (present and equal) Abdomen: Soft, Non-tender, Non-distended, Normoactive bowel tones. Musculoskeletal: Unremarkable. Normal range of motion, no swollen or erythematous joints Extremities: No edema, no cyanosis, no clubbing. Skin: No rashes. Warm and dry, no erythematous areas Neurological: Grossly neurologically intact, Normal Speech, Sensation Intact Lymphatic: Lymph nodes Cervical and Axillary not palpable Lab and Diagnostics Labs Laboratory Tests Test 01/30/17 19:03 01/30/17 19:15 01/30/17 20:52 White Blood Count 16.4th/mm3 (3.8-10.1) Red Blood Count 5.05mil/mm3 (3.90-5.20) Hemoglobin 15.2g/dL (12.0-15.6) Hematocrit 45.3% (35.0-46.0) Mean Corpuscular Volume 89.7fL (81-100) Mean Corpuscular Hemoglobin 30.1pg (27.0-35.0) Mean Corpuscular Hemoglobin Concent 33.6% (32.0-37.0) Red Cell Distribution Width 13.2% (12.3-15.4) Platelet Count 259bil/L (150-400) Neutrophils (%) (Auto) 68.2% (40-74) Lymphocytes (%) (Auto) 23.5% (14-46) Monocytes (%) (Auto) 6.8% (4-12) Eosinophils (%) (Auto) 1.1% (0-5) Basophils (%) (Auto) 0.2% (0-3) Sodium Level 137mEq/L (134-144) Potassium Level 3.4mEq/L (3.5-5.2) Chloride Level 91mEq/L (97-108) Carbon Dioxide Level 26mmol/L (18-29) Blood Urea Nitrogen 10mg/dL (6-24) Creatinine 0.59mg/dL (0.57-1.00) Estimat Glomerular Filtration Rate 157mL/min (>59) Glucose Level 146mg/dL (60-99) Calcium Level 8.9mg/dL (8.5-10.1) Magnesium Level 1.5mg/dL (1.6-2.6) Total Bilirubin 0.4mg/dL (0.0-1.2) Aspartate Amino Transf (AST/SGOT) 29U/L (0-50) Alanine Aminotransferase (ALT/SGPT) 75U/L (0-32) Alkaline Phosphatase 74U/L (25-150) Troponin T < 0.010ug/L (0.0-0.011) Total Protein 8.2g/dL (6.4-8.4) Albumin 4.6g/dL (3.4-5.0) Thyroid Stimulating Hormone (TSH) 9.190uIU/mL (0.450-4.500) Free Thyroxine 1.33ng/dL (0.82-1.77) Lactic Acid Level 2.8mmol/L (0.4-2.0) Hold Lund Top Tube Received (Received) Hold Urine Received (Received) Microbiology 01/30/17 Influenza Screen - Final, Complete Result Diagram: 01/30/17190201/30/171902 X-Rays, CTs and MRIs X-RAY CHEST ONE VIEW, PORTABLE 01/30/17 IMPRESSION: No acute disease Dictated by: Calvin Quintana M.D. on 01/30/2017 at 19:58 Approved by: Calvin Quintana M.D. on 01/30/2017 at 19:58 CT ANGIO CHEST PULMONARY EMBOLISM 01/30/17 IMPRESSION: Bilateral dependent areas of aspiration and mucoid impaction. Recommend clinical correlation to exclude superimposed infection. No gross or central pulmonary embolism, however evaluation of the distal/ segmental branches is precluded by poor contrast opacification as discussed in detail above. Dictated by: Calvin Quintana M.D. on 01/30/2017 at 21:28 Approved by: Calvin Quintana M.D. on 01/30/2017 at 21:34 Assessment & Plan Latrice Lockwood is a 46 year old female with a history of thyroid carcinoma status post radioisotope I 131 4, irradiation, and thyroidectomy in remission , paralyzed right vocal cord, Kikuchi syndrome, and Ann syndrome presents to [facility] emergency department due to acute shortness of breathe with weakness 1. Severe Sepsis. Present on admission Meeting criteria with leukocytosis and tachycardia. Possible Pulmonary infection. Pulmonary embolism has been ruled out as a cause of tachycardia - monitor on telemetry - procalcitonin - blood cultures if fever spikes 2. Healthcare associated pneumonia. Present on admission Patient having productive cough and CT chest showing some aspiration areas. Possible aspiration pneumonitis. Meeting criteria from being recently hospitalized in last 90 days - MRSA screen, blood cultures - Vancomycin and Zosyn IV for empiric antibiotics - Infectious disease consult recommended tomorrow 3. Lactic acidosis. Present on admission Due to tissue hypoxic from sepsis - trending levels till normal - IV fluids 4. Acute shortness of breathe. 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 Currently stable and will continue to closely monitor 6 Hypertension - continue Metoprolol 25 mg bid 7 Hypothyroidism with Thyroid cancer in remission - continue Synthroid 300 mcg daily - Acetaminophen as needed for mild pain/fever/headache - Bowel regimen as needed - Antiemetic as needed Patient admitted under inpatient status with expected length of stay > 2 midnights for severity of present symptoms, complexities of treatment plan and risk for adverse event . Resuscitation Status: CPR: Attempt Resuscitation Germán Hartley MD Jan 30, 2017 22:20 Germán Hartley MD Jan 30, 2017 22:20
[2017-01-31] VITALS (8 sets, daily range): BP systolic 104–148; BP diastolic 59–88; PULSE 97–117; RESP 20–22; O2SAT 97–98
[2017-01-31] MEDS: Heparin 5,000 Unit/mL Inj SUBQ SCH ×3 (00:22→15:45)
[2017-01-31] MEDS ORDERED: Vancomycin Inj 2,500 MG in 0.9% Sodium Chloride 1,000 ML IV ONE (01:00)
[2017-01-31] MEDS: Ondansetron 2 mg/mL 2 mL Inj IVPUSH PRN ×3 (02:10→17:51)
[2017-01-31] MEDS ORDERED: Piperacillin-Tazo 3.375 Gm Inj 3.375 GM in Dextrose 5% Minibag Plus 50 ML IV ONE (03:00)
[2017-01-31 04:57] LABS: Mean Corpuscular Hemoglobin 30.5 pg (27.0-35.0); Mean Corpuscular Volume 90.3 fL (81-100); Platelet Count 200 bil/L (150-400)
[2017-01-31 05:15] LABS: BASOPHILS % (AUTO) 0 % (0-3); EOSINOPHILS % (AUTO) 0 % (0-5); MONOCYTES % (AUTO) 5 % (4-12); NEUTROPHILS % (AUTO) 65 % (40-74)
--- NOTE | 2017-01-31 05:49 | PCM.CONPHA ---
Subjective Date of Service: Jan 31, 2017 Requesting Provider: Germán Hartley MD Tachycardia with shortness of breathe History of Present Illness SEPSIS Reason for Pharmacy Consult: Vancomycin Dosing Objective Vital Signs Date Time Temp Pulse Resp B/P Pulse Ox O2 Delivery O2 Flow Rate FiO2 01/31/17 04:14 110 01/31/17 01:37 37.1 117 22 110/71 97 Nasal Cannula 1.00 01/30/17 22:59 37.5 118 20 113/67 95 Room Air 01/30/17 22:46 116 21 112/62 94 Room Air 01/30/17 21:21 131 18 127/58 95 Room Air 01/30/17 20:07 120 28 145/84 96 Room Air 01/30/17 19:02 37.9 113 25 146/75 94 Weight (Kilograms): 124.800 Height (Feet): 5 Height (Inches): 8.00 Test 01/30/17 19:03 01/30/17 19:15 01/30/17 20:52 01/31/17 04:45 Magnesium Level 1.5mg/dL (1.6-2.6) Total Bilirubin 0.4mg/dL (0.0-1.2) Aspartate Amino Transf (AST/SGOT) 29U/L (0-50) Alanine Aminotransferase (ALT/SGPT) 75U/L (0-32) Alkaline Phosphatase 74U/L (25-150) Troponin T < 0.010ug/L (0.0-0.011) Total Protein 8.2g/dL (6.4-8.4) Albumin 4.6g/dL (3.4-5.0) Lipase 34U/L (13-60) Procalcitonin 0.06ng/mL (0.00-0.08) Thyroid Stimulating Hormone (TSH) 9.190uIU/mL (0.450-4.500) Free Thyroxine 1.33ng/dL (0.82-1.77) Hold Lund Top Tube Received (Received) Hold Urine Received (Received) Assessment/Plan Assessment/Plan A/ - 46 y/o female patient with complex medical hx needed Vancomycin therapy to cover empirically for sepsis - Febrile. WBC: 16.4. Lactic acid keeps climbing up. Negative flu screen. Blood cultures (x2) and MRSA screen pending - Wt: 124.8 kg, ht: 172.7 cm, BMI ~42 kg/m2, SCr: 0.59 mg/dL, est. clearance >150 ml/min, Vd: 69L - Received Vancomycin 2G loading dose @0200 and comitant abx: Zosyn P/ - Give Vancomycin 1.5G q8h. Trough level ordered prior to 4th dose @0130 on 02/01 with estimate trough around 17-18. Pharmacy will continue to follow and make necessary adjustment. Thank you for consulting clinical pharmacy in the care of this patient. Vernon Wellington, PharmD, [facility] Perlita Wellington Jan 31, 2017 05:49
--- NOTE | 2017-01-31 05:54 | NUR ---
ADMIT Patient admit for sudden onset of SOB, chest pain, increasing with inspiration. Recently discharged from for ongoing chronic issues. Upon assessment patient is on room air, lung sounds slightly wheezy and coarse throughout. After admit completed patient began complaining of sudden sharp pains to her back, describing them as originating from her lungs. She became quite anxious and tearful. Requested MD come to re-evaluate the "change in my breathing." Patient's lungs were actually sounding clearer at this time, saturations in high 90s, and she had just received morphine prior to the sharp pains she described. MD notified and came to visit patient. New orders for ativan and another dose of morphine given as well as Kpad placed to her back. Patient was able to sleep after this and would wake up and begin moaning when staff entered her room but quickly fell back to sleep. Oxycodone given for ongoing pain control. MD made aware of continuing high lactic acid results, no new orders received. Vanco and zosyn transfusing. Will continue to closely monitor.
[2017-01-31 05:57] LABS: APPEARANCE,URINE CLEAR (CLEAR,HAZY); COLOR,URINE YELLOW (YELLOW); OCCULT BLOOD,URINE NEGATIVE (NEGATIVE); UROBILINOGEN,URINE NORMAL (NORMAL)
[2017-01-31] MEDS: 0.9% Sodium Chloride 1,000 ML IV SCH ×3 (07:43→20:00)
[2017-01-31] MEDS: Vancomycin Dose per Pharmacist XX SCH (08:30)
[2017-01-31] MEDS ORDERED: 0.9% Sodium Chloride 500 ML IV ONE (09:30)
[2017-01-31] MEDS ORDERED: Vancomycin Inj 1,500 MG in 0.9% Sodium Chloride 500 ML IV SCH (10:00)
--- NOTE | 2017-01-31 10:39 | NUR ---
Evaluation completed. Please go to "Notes" then click on "Assessments and Notes" (bottom left corner of screen). Then select appropriate discipline tab on top of screen.
[2017-01-31] MEDS ORDERED: Piper-Tazo 3.375 Gm/50 mL D5W Minibag Plus - Q8H over 4 hrs IV SCH ×2 (11:00)
[2017-01-31] MEDS: SYNTHROID 200 MCG PO SCH (11:41)
[2017-01-31] MEDS: SYNTHROID 100 MCG PO SCH (11:41)
--- NOTE | 2017-01-31 12:27 | CONS ---
[address] [address] CONSULTATION REPORT PATIENT: MARVEL COREA : 1970 MR#: [id number] ADMIT: 01/30/2017 JOB ID: [id number] DATE OF SERVICE: 01/31/2017 INFECTIOUS DISEASE NEW CONSULTATION: I kindly thank Dr. Gutierrez for this timely consult. REASON FOR CONSULTATION: Hospital-acquired pneumonia. HISTORY OF THE PRESENT ILLNESS: Recall that this an extraordinarily complicated 46-year-old woman who I saw during a prolonged hospitalization last month. At the time of that hospitalization, the patient had a severe right facial group A streptococcal cellulitis but also had evidence of airway compromise. This was occurring in the setting of underlying possible recurrent Kikuchi syndrome, history of thyroid malignancy and a Jakub implant into the vocal cord. At the time I last saw her on January 18, I strongly recommended that the patient be transferred to the [facility] because there were many unanswered questions about the possible complications related to the Jakub in her vocal cord, as well as the Kikuchi syndrome, and she had been followed and seen by physicians at the [facility] on multiple occasions. Subsequently, the patient was transferred to the [facility], where she had a hospital stay that went on for about a week or so. During that time, the patient's antibiotics and steroids that she had been receiving here were tapered and finally stopped. She had an ultrasound, as well as evaluation by ENT physicians at the [facility] without finding any significant pathology, and she was discharged on January 27. The patient tells us that just before her discharge at the [facility] she started to develop a dry cough, however. After getting home this past weekend, the patient felt well for two days and then developed the sudden onset yesterday of a profound malaise, weakness, right pleuritic chest pain, lightheadedness and severe rigors. Because of this, as well as some air hunger that developed, the patient activated the EMS system and was transported to this facility and readmitted yesterday. She had a chest x-ray, which did not show much, but a CT scan of the chest done for pulmonary embolism did show right greater than left pulmonary infiltrates, which were new, as compared to a CT scan a few months ago. Based on the appearance of these infiltrates, as well as the rigors, a profound new leukocytosis and an elevated procalcitonin, it was decided that she had a hospital-acquired pneumonia, as she spent over a week in the hospital here, followed by a week or so at the [facility] just prior to the onset of these symptoms, and she was started on vancomycin and Zosyn as broad-spectrum antibiotics. In speaking to the patient this morning she feels perhaps slightly better but is still quite ill with weakness, some shortness of breath and some right pleuritic chest pain with dry cough. Her lightheadedness has improved, and she does not have significant headache, does not have stiff neck and, as noted, has less air hunger. She does not have any significant GI or symptoms such as nausea, vomiting, diarrhea, or dysuria. She notes that the right facial cellulitis that was so prominent when she was admitted here in December has completely resolved, and she is not having any stridor. PAST MEDICAL HISTORY: 1. Thyroid carcinoma, status post numerous surgeries, radiation and eventual thyroidectomy. 2. Status post right radical neck surgery, with paralyzed right vocal cord, which eventually required a Jakub implant done back in the . 3. History of relapsing Kikuchi-Esau syndrome. 4. 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 5. Hyperlipidemia. 6. Endometriosis. 7. Hypertension. SOCIAL HISTORY: The patient is a nonsmoker. Drinks alcohol occasionally. She works as a nurse here at [employer], and lives with her in this area. No extensive travel recently. FAMILY HISTORY: Notable for coronary artery disease in multiple relatives including her mother. Her mother and father both have diabetes. There is no family history in first or second-degree relatives of tuberculosis. REVIEW OF SYSTEMS: Done. The patient has no headache today. No change in vision and no sore throat. She is not having any air hunger or trouble breathing this morning, though she does have a continued dry cough and right pleuritic pain with deep inspiration. The facial warmth and tenderness present during her last admission have resolved. She is not having odynophagia or dysphagia. She is no longer short of breath as she was yesterday, though still just a bit. No nausea, vomiting, diarrhea, or dysuria. No swelling of the lower extremities. No problems with her joints, and no new neurologic symptoms. Remainder of the review of systems is negative. PHYSICAL EXAMINATION: Reveals a woman who was febrile to 37.9 when she came to the ED yesterday evening. She has been afebrile ever since, now 36.8. Pulse 104, respiratory rate 22, blood pressure 139/82. She is saturating well on 1 L. She is in no acute distress. Head is without trauma. The eyes without conjunctivitis or scleral icterus. She does have the right Ann syndrome. The right face, which was so erythematous and tender on her last admission, is completely normal. There is no longer any evidence of facial cellulitis. The right neck below the mandible is somewhat scarred on the basis of prior right radical neck dissection but not changed from prior. The patient's oropharynx was unremarkable. There was no evidence for pharyngitis. The patient's neck is completely supple. Lungs are notable for rales at the right base which are very focal, and no rub is heard. No wheezing is heard either. Cardiac tones: Regular rate and rhythm without murmur. Abdomen slightly distended, soft, and nontender without organomegaly. No Wade catheter is present. No suprapubic tenderness. No swelling of the lower extremities. No synovitis. No skin rash. The patient is neurologically intact. She does not have a palpable thyroid, as it has been resected. LABORATORIES: Include white count 16 yesterday, now 21,000, with 7% bands. Her creatinine is 0.63. Lactic acid still 3.3. Procalcitonin negative last night in the ED, now 1.31 which is at twentyfold rise and indicative of a significant bacterial infection. Urinalysis without white cells. Prior CAROL screen during the last admission was negative. Urine legionella antigen done today is negative but urine pneumococcal antigen is positive, and I just spoke to the Lab about this result. Respiratory viral panel is pending. Blood cultures negative so far. During her last admission a throat culture grew beta hemolytic group G strep, and an ASO titer was strongly positive, and we thought these beta streps were the cause of her cellulitis during the last admission and not this one. IMAGING: We reviewed the chest x-ray and CT scans on the computer. We compared the chest x-ray done last night to one done a couple of months ago and clearly has new right lower lobe infiltrate and perhaps a hint of a left lower lobe infiltrate as well but much more significant on the right. IMPRESSION: This is an incredibly complicated case who we transferred to the [facility] on January 19 for evaluation of possible vocal cord abnormality, possible recurrent Kikuchi syndrome and even the possibility of recurrent tumor, all in association with a streptococcal facial infection. At the [facility], she underwent additional evaluation without any additional diagnoses, and her facial cellulitis and other problems seemed to resolve. She then went home and was fine for only two or three days. Then, her dry cough that she had when she left [facility] worsened and she developed rigors, pleuritic chest pain, leukocytosis and a rapidly rising procalcitonin, which, in association with the CT scan of the chest and the urine pneumococcal antigen test, is proof of a post viral right-sided pneumococcal pneumonia. Management of this should be straight forward, as all of our isolates here from the pulmonary tract at least are susceptible to both ceftriaxone and penicillin. RECOMMENDATIONS: 1. I would discontinue vancomycin and Zosyn, as they are nephrotoxic and not needed. 2. Will start ceftriaxone 2 g once a day. 3. We await the pending viral and other studies including blood cultures. 4. A probable course of 5-7 days will be indicated, and I would certainly keep her in the hospital a couple of days until she is well and out of the jolly, and I will make a transition to oral therapy to finish a course of therapy. Thank you very much for this consult.
[2017-01-31] MEDS: LORazepam 0.5 mg Tablet PO PRN ×2 (13:12→21:15)
[2017-01-31] MEDS: cefTRIAXone Inj 2,000 MG in Dextrose 5% Minibag Plus 50 ML IV SCH (13:12)
--- NOTE | 2017-01-31 14:00 | NUR ---
Off unit Pt off unit to barium swallow, [facility] notified, Addendum: 01/31/17 at 1444 by VILMA DIAZ RN Pt back on unit, [employer] notified.
--- NOTE | 2017-01-31 15:32 | DRSVH ---
PROCEDURE: X-RAY BARIUM SWALLOW WITH FOOD & VIDEOGRAPHY ([id number]) INDICATIONS: aspiration TECHNIQUE: Examination was conducted in conjunction with speech pathology per standard protocol. In the lateral projection, filming was performed of the patient swallowing. AP projection filming may also be performed with patient swallowing. COMPARISON: None. FINDINGS: Function: The oral preparatory phase appears normal, with proper containment. The subsequent oral pr opulsive phase, pharyngeal phase, and esophageal phase of swallowing also appear normal with all prof fered substances. No laryngotracheal penetration or aspiration. No pathologic vallecular pooling. The attending physician was personally present in the room during the examination. Morphology: No cricopharyngeal bar is identified. No cervical esophageal webs. No Zenker's diverti culum. No strictures. IMPRESSION: No laryngeal penetration or tracheobronchial aspiration. Dictated by: Yohan Chairez [facility] Interpreted: Shantell Simmons MD on 01/31/2017 at 15:31 Transcribed by: JACKLYN on 01/31/2017 at 15:32 Approved by: Shantell Simmons MD, PhD on 01/31/2017 at 17:39
--- NOTE | 2017-01-31 15:46 | PCM.PNMED ---
Subjective Date of Service Jan 31, 2017 Subjective Latrice Lockwood is a 46 year old female with a history of thyroid carcinoma status post radioisotope I 131 4, irradiation, and thyroidectomy in remission , paralyzed right vocal cord, Kikuchi syndrome, and Ann syndrome presents to [facility] emergency department due to acute shortness of breathe with weakness. This morning, she reports that on Sunday, she developed a dry cough, which worsened until yesterday evening when she became dyspneic and unable to move off of her couch. She continues to have right mid back pain that gets worse with coughing and a cough. She has fever, chills, and fatigue. She does not have chest pain. She does not have nausea or diarrhea. Exam Vital Signs Vital Sign - Last Date Time Temp Pulse Resp B/P Pulse Ox O2 Delivery O2 Flow Rate FiO2 01/31/17 12:43 103 01/31/17 10:58 36.8 22 139/82 97 Nasal Cannula 1.00 Intake and Output 01/30/17 01/30/17 01/31/17 Cumulative From/Thru 14:59 22:59 06:59 01/30/17 19:02 - 01/31/17 06:24 Intake Total 2963 ml 2963 ml Output Total 1350 ml 1350 ml Balance 1613 ml 1613 ml Intake Oral 2074 ml 2074 ml IV Total 889 ml 889 ml Output Urine Total 1350 ml 1350 ml # Bowel Movements 0 0 Exam General: Alert, Oriented X3, Cooperative, mild distress secondary to back pain Eyes: PERRLA, Scleral Anicteric Mouth: Mouth Normal, Mucous Membranes Moist/[place] Neck: Supple, no Thyromegaly, trachea central. Chest & Lungs: decreased breath sounds bilaterally with crackles Cardiovascular: Normal S1, Normal S2, No Murmurs/Rubs/Gallops Abdomen: Soft, Non-tender, Non-distended, Normoactive bowel tones. Musculoskeletal: Unremarkable. Normal range of motion, no swollen or erythematous joints Extremities: No edema, no cyanosis, no clubbing. Skin: No rashes. Warm and dry, no erythematous areas Neurological: Grossly neurologically intact, Normal Speech, Sensation Intact IVs and Medications Medications Reviewed: Medications were reviewed in detail Lab and Diagnostics Result Diagram: 3/8/17 0445 3/8/17 0445 X-Rays, CTs and MRIs X-RAY CHEST ONE VIEW, PORTABLE 01/30/17 IMPRESSION: No acute disease Approved by: Calvin Quintana M.D. on 01/30/2017 at 19:58 CT ANGIO CHEST PULMONARY EMBOLISM 01/30/17 IMPRESSION: Bilateral dependent areas of aspiration and mucoid impaction. Recommend clinical correlation to exclude superimposed infection. No gross or central pulmonary embolism, however evaluation of the distal/ segmental branches is precluded by poor contrast opacification as discussed in detail above. Approved by: Calvin Quintana M.D. on 01/30/2017 at 21:34 12-lead ECG Sinus tachycardia Assessment & Plan Latrice Lockwood is a 46 year old female with a history of thyroid carcinoma status post radioisotope I 131 4, irradiation, and thyroidectomy in remission , paralyzed right vocal cord, Kikuchi syndrome, and Ann syndrome presents to [facility] emergency department due to acute shortness of breathe with weakness 1. Healthcare associated post-viral pneumococcal pneumonia. Present on admission Patient having productive cough and CT chest showing some aspiration areas. Meeting criteria from being recently hospitalized in last 90 days. No apparent aspiration on modified barium swallow. Positive human metapneumovirus and Strep. pneumoniae urine antigen. - MRSA screen, blood cultures pending - Stopped Vancomycin and Zosyn IV - Started ceftriaxone 2 g once a day - Infectious disease consulted and following. Their time and recommendations are appreciated. 2. Severe Sepsis. Present on admission Meeting criteria with leukocytosis and tachycardia. Pulmonary infection. Pulmonary embolism has been ruled out as a cause of tachycardia - monitor on telemetry - blood cultures pending - IV fluids - antibiotics as above 3. Lactic acidosis. Present on admission Due to tissue hypoxic from sepsis - trending levels until normal - IV fluids normal saline at 125 ml/hour and 1 bolus of 500 ml normal saline this morning 4. Acute shortness of breathe. Present on admission Due to pneumonia as above - treatment discussed above - consider Albuterol treatments if wheezing 5. H/o Kichiki-Fujumoto Disease with recent flair up. Currently stable and will continue to closely monitor 6. Hypertension - Continue Metoprolol 25 mg bid and hydrochlorothiazide 25 mg daily - Monitor blood pressure 7. Hypothyroidism with Thyroid cancer in remission - continue Synthroid 8. Anxiety - lorazepam 0.5 mg TID as needed for anxiety 9. Right thoracic muscle spasm and pain - secondary to pneumonia and cough as above - continue home gabapentin - oxycodone and morphine as needed for pain - Acetaminophen as needed for mild pain/fever/headache - Bowel regimen as needed - Antiemetic as needed Patient admitted under inpatient status with expected length of stay > 2 midnights for severity of present symptoms, complexities of treatment plan and risk for adverse event . VTE Prophylaxis: Sub-Q Heparin (Unfractionated) Resuscitation Status: CPR: Attempt Resuscitation Time spent 30 minutes Attending Statement I have seen and evaluated patient at bedside in addition to directly supervising care provided by resident physician. I agree with above documentation. Daniela Gutierrez DO Jan 31, 2017 15:46 Chaz Chavarria DO Feb 01, 2017 08:02
--- NOTE | 2017-01-31 16:23 | NUR ---
Social Work-assessment: 1Data:EMR Reviewed. Pt is a 46 y/o female who was admitted on 01/30/17 for shortness of breath per H&P. Pt's insurance is [employer] and PCP is Dr. Frazier. EMR Reviewed. Pt's readmission score is 1. SW met with pt and Seth at bedside to discuss discharge planning, SW role explained. Pt is alert and oriented x3. Pt resides at home with her where she remains independent with ADLs. SW discussed DPOA/ advanced directive, pt has not completed this and is interested in information, which has been provided. Pt and confirm no needs at discharge. No anticipated discharge needs. Pt's to provide transport home at discharge. SW provided phone number and plan on white board in room. SW will continue to follow if needs arise. Assessment:Pt who is independent at baseline. Plan:Pt to discharge home when medically stable via POV. No anticipated discharge needs. SW will continue to follow if needs arise. PADMINI Gilmore
--- NOTE | 2017-01-31 18:30 | ST BAR ---
[address] [address] SPEECH BARIUM SWALLOW STUDY PATIENT: MARVEL COREA : 1970 MR#: [id number] ADMIT: 01/30/2017 JOB ID: [id number] DATE OF SERVICE: 01/31/2017 THERAPIST: Mckayla Antunez MA CCC-CEMENT [employer] REFERRING PHYSICIAN: Faith Castillo DO (RES) PRIMARY CARE PHYSICIAN: Dr. Frazier (?) HICN #: [id number]. PRIMARY DIAGNOSIS: Healthcare-associated pneumococcal pneumonia, positive human metapneumovirus and strep pneumoniae urine antigen positive. TREATMENT DIAGNOSIS: Dysphagia. VISITS FROM START OF CARE: One. Further therapy is recommended on an outpatient basis at this time in order to increase anterior hyoid movement and increased laryngeal elevation and excursion. Therapy should be completed for up to eight visits 1-2 visits a week. No diet texture or liquid level modifications recommended at this time. but it is recommended the patient complete this laryngeal exercise program with fidelity. CURRENT RELEVANT HISTORY: The patient presented with initial question of aspiration pneumonia on CT scan. 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 The patient also had history of Kikuchi syndrome, Ann syndrome, GERD, and a tonsillectomy. Per patient's report, she has been managing dysphagia for the past 30 years with a most recent modified barium swallow study in 2014 which indicated a chin tuck to the right was required for all liquid swallows and that regular textures need to be modified for a safe swallow. The patient was very clear that she does not follow a dysphagia diet so to speak, but she alters regular food items in order to safely swallow. No overt signs or symptoms of aspiration were seen at bedside swallow evaluation. So, due to right vocal fold paresis and concern for aspiration pneumonia on chest x-ray, the current study is being completed today to fully assess the swallowing mechanism and ensure the patient is not silently aspirating at this time. MEDICAL NECESSITY: Aspiration risk. PRIOR LEVEL OF FUNCTION: Independent. The patient works as a nurse in [employer]. PREVIOUS HOSPITALIZATIONS: Yes. The patient was recently hospitalized at [facility] and was discharged three days prior to this admission. FUNCTIONAL LIMITATIONS: Difficulty with swallowing issue has been ongoing for the past 30 years since her initial diagnosis of thyroid cancer which resulted in vocal fold paresis during one surgery. BASELINE TEST MEASURES: The patient stood for the modified barium swallow study. The patient was lethargic and demonstrated dyspnea with standing. Oral motor evaluation was all within functional limits. P.o. trials of barium were given with and without compensatory strategies in the following consistencies: Thin liquid, pureed textures, dysphagia mechanical, mechanical soft and barium tablet with thin liquid. Oral phase: Labial seal was complete. The patient demonstrated adequate oral containment of the bolus with appropriate tongue and soft palate closure. Mastication was complete. Pharyngeal phase: There was appropriate spillage of solid foods to the level of the vallecula which is within functional limits. On one trial of mechanical soft, a piece of the bolus moved to the posterior sided epiglottis before swallow. Reflex was initiated. All other trials were within functional limits. The patient demonstrated decreased anterior hyoid movement and decreased laryngeal excursion and elevation. That being said, swallow reflex was mildly delayed and no signs or symptoms of aspiration or penetration were viewed with or without compensatory strategy utilization. Esophageal phase: Was not fully viewed in the current study. The barium tablet was given with water and passed through the oral cavity, pharynx and proximal esophagus without difficulty or hesitation. Cricopharyngeal relaxation appeared within functional limits. EVALUATION RESULTS: The patient is a very pleasant, 46-year-old female with a complex medical history that includes history of dysphagia and right vocal fold paresis as well as thyroid carcinoma treated with isotopic radiation and thyroidectomy. The patient presented today with a fairly functional swallow. No signs or symptoms of aspiration or penetration were viewed in the current study. There was decreased anterior hyoid movement and decreased laryngeal elevation and excursion, however, these out of normal limit findings did not impact the patient's ability to swallow safely. Adequate airway protection was demonstrated throughout the study on all trials. It is recommended the patient continue self-selecting and modifying her solid food selections in order to eat and drink safely and without anxiety. It is also recommended the patient utilize her chin tuck to the right especially when she is feeling fatigued, is medically fragile or is feeling short of breath. The findings of this evaluation were discussed with the patient at the conclusion of the evaluation. It will be recommended that the patient attend some outpatient speech therapy services in order to increase the range of motion of her swallowing mechanism. However, it will be up to the patient if she participates in those or not. No acute needs are identified at this time. Please reorder consultation if needed. Thank you very much for this very interesting consult. VERN
--- NOTE | 2017-01-31 18:39 | NUR ---
Pain/activity/iso Pt reports a constant 7/10 pain despite IV pain meds, k-pad, repositioning. She describes it as "breathing broken glass." MD aware. Pt able to get up to BR, tolerates activity fairly well. She remains on 2L for comfort. Pt placed on isolation - droplet precautions - due to (+) for metapneumo virus. Family and pt educated on precautions, report understanding. Currently resting comfortably, bed in lowest, locked position and call light in reach.
[2017-02-01] MEDS: Heparin 5,000 Unit/mL Inj SUBQ SCH ×3 (00:53→17:35)
[2017-02-01 00:56] VITALS: BP 136/85; PULSE 88; RESP 18; O2SAT 97
[2017-02-01] MEDS ORDERED: Vancomycin Serum Trough XX ONE (01:30)
[2017-02-01] MEDS: 0.9% Sodium Chloride 1,000 ML IV SCH ×2 (03:49→12:08)
[2017-02-01 05:47] VITALS: BP 132/7; PULSE 73; PULSE 85; RESP 18; O2SAT 94; O2SAT 99
[2017-02-01 06:30] VITALS: PULSE 100
[2017-02-01 06:39] LABS: BASOPHILS % (AUTO) 0.1 % (0-3); EOSINOPHILS % (AUTO) 2.6 % (0-5); MONOCYTES % (AUTO) 5.6 % (4-12); Mean Corpuscular Volume 91.9 fL (81-100); NEUTROPHILS % (AUTO) 60.4 % (40-74); Platelet Count 169 bil/L (150-400)
[2017-02-01 06:45] LABS: Magnesium 1.6 mg/dL (1.6-2.6)
[2017-02-01] MEDS: SYNTHROID 100 MCG PO SCH (06:59)
[2017-02-01] MEDS: SYNTHROID 200 MCG PO SCH (06:59)
[2017-02-01] MEDS: Ondansetron 2 mg/mL 2 mL Inj IVPUSH PRN ×2 (07:59→12:45)
[2017-02-01 08:00] VITALS: PULSE 88
[2017-02-01] MEDS ORDERED: LEVOTHYROXINE 300 MCG PO SCH (08:30)
[2017-02-01] MEDS ORDERED: Ascorbic Acid 500 mg Tablet PO SCH (08:30)
[2017-02-01] MEDS: LORazepam 0.5 mg Tablet PO PRN ×2 (10:08→21:41)
[2017-02-01] MEDS ORDERED: Albuterol-Ipratropium 3 mL Inhalation Solution NEB PRN (11:00)
[2017-02-01] MEDS ORDERED: Glucose 40% Oral Gel 15 Gm Tube PO PRN (11:00)
--- NOTE | 2017-02-01 11:20 | PROG NOTE ---
[address] [address] PROGRESS NOTE PATIENT: MARVEL COREA : 1970 MR#: [id number] ADMIT: 01/30/2017 JOB ID: [id number] DATE: 02/01/2017 INFECTIOUS DISEASE FOLLOWUP NOTE: REASON FOR FOLLOWUP: Pneumococcal pneumonia following human metapneumovirus viral infection. INTERVAL HISTORY: Overnight, the patient has continued to have a significant cough, as well as fairly severe right pleuritic chest pain. She has had no significant fever and no sore throat. No nausea, vomiting, or diarrhea has been reported. She is tolerating her antibiotics well. PHYSICAL EXAMINATION: Reveals an afebrile woman sitting up in bed. Temp 36.9, pulse 88, respiratory rate 18, blood pressure 122/70, saturating well on 2 L. She appears acutely ill but not critically ill. Examination of the eyes: No scleral icterus. Oral cavity without thrush or pharyngitis. Lungs: Decreased breath sounds and rales at the right base. Cardiac tones without new murmur. Abdomen: Negative. No skin rash. LABORATORIES: Include a white count which has dropped all the way from 21,000 yesterday to 8000 today. The diff is now normal as well. Creatinine 0.48. LFT basically normal. Procalcitonin was 1.31 yesterday. It is down to 0.86 today. Urinalysis without pyuria. Urine legionella antigen negative. Urine pneumococcal antigen positive. Multiplex respiratory PCR panel positive for human metapneumovirus. Blood cultures negative. Modified barium swallow without aspiration. IMPRESSION: This patient has a very complex past medical history including thyroid carcinoma and multiple neck surgeries, as well as a Jakub implant in the vocal cord and Kikuchi syndrome. After a long hospitalization divided between this facility and the [facility], she went home and was fine for a few days except for a dry cough, which then turned into a more overt bacterial pneumonia picture. We now have evidence that this is a pneumococcal pneumonia based on urine antigen and imaging, and we also have the PCR evidence that this started with a human metapneumovirus infection. At this point, we are early in the patient's antibiotic therapy, and she is not yet much improved but I anticipate such improvement will occur over the next couple of days. RECOMMENDATIONS: 1. Will continue with our current antibiotic regimen of ceftriaxone. 2. There is no specific therapy for the human metapneumovirus but I do note that she needs to be in contact and droplet isolation. 3. The patient's clinical course was discussed in detail with her. We await additional developments and improvements over the next couple of days.
[2017-02-01] MEDS: cefTRIAXone Inj 2,000 MG in Dextrose 5% Minibag Plus 50 ML IV SCH (11:50)
[2017-02-01] MEDS: Nystatin 100,000 Unit/Gm 15 Gm Powder TOPICAL SCH ×2 (11:50→21:42)
[2017-02-01] MEDS: Insulin LISPRO 300 Unit/3 mL Inj SUBQ SCH ×3 (11:51→21:26)
[2017-02-01 13:26] VITALS: BP 141/95; PULSE 89; RESP 20; O2SAT 98
--- NOTE | 2017-02-01 13:34 | PCM.PNMED ---
Subjective Date of Service Feb 01, 2017 Subjective Latrice Lockwood is a 46 year old female with a history of thyroid carcinoma status post radioisotope I 131 4, irradiation, and thyroidectomy in remission , paralyzed right vocal cord, and Ann syndrome presents to [facility] emergency department due to acute shortness of breathe with weakness. Today, Ms. Lockwood reports that she continues to have a productive cough and dyspnea. She feels slightly better than yesterday. She no longer has a fever or chills. She did have heartburn overnight. She had 2 loose stools yesterday but a formed bowel movement today. She has an itchy, red rash at her groin with white discharge. She does not have neck pain or stiffness. Exam Vital Signs Vital Sign - Last Date Time Temp Pulse Resp B/P Pulse Ox O2 Delivery O2 Flow Rate FiO2 02/01/17 06:30 100 02/01/17 05:47 36.9 18 132/7 99 Nasal Cannula 2.00 Intake and Output 01/31/17 01/31/17 02/01/17 Cumulative From/Thru 15:00 23:00 07:00 01/30/17 19:02 - 02/01/17 06:43 Intake Total 1223 ml 1828 ml 1000 ml 7014 ml Output Total 1000 ml 2700 ml 3300 ml 8350 ml Balance 223 ml -872 ml -2300 ml -1336 ml Intake Oral 1158 ml 1000 ml 4232 ml IV Total 1223 ml 670 ml 2782 ml Output Urine Total 1000 ml 2700 ml 3300 ml 8350 ml # Bowel Movements 2 0 2 Exam General: Alert, Oriented X3, Cooperative, mild distress secondary to back pain Eyes: PERRLA, Scleral Anicteric Mouth: Mouth Normal, Mucous Membranes Moist/[place] Neck: Supple, no Thyromegaly, trachea central. Chest & Lungs: Rhonchi at left upper lung Cardiovascular: Normal S1, Normal S2, No Murmurs/Rubs/Gallops Abdomen: Soft, Non-tender, Non-distended, Normoactive bowel tones. Musculoskeletal: Unremarkable. Normal range of motion, no swollen or erythematous joints Extremities: No edema, no cyanosis, no clubbing. Skin: Erythema at bilateral intertriginous inguinal folds. Warm and dry Neurological: Grossly neurologically intact, Normal Speech, Sensation Intact IVs and Medications Medications Reviewed: Medications were reviewed in detail Lab and Diagnostics Result Diagram: 02/01/17 0610 02/01/17 0610 X-Rays, CTs and MRIs X-RAY CHEST ONE VIEW, PORTABLE 01/30/17 IMPRESSION: No acute disease Approved by: Calvin Quintana M.D. on 01/30/2017 at 19:58 CT ANGIO CHEST PULMONARY EMBOLISM 01/30/17 IMPRESSION: Bilateral dependent areas of aspiration and mucoid impaction. Recommend clinical correlation to exclude superimposed infection. No gross or central pulmonary embolism, however evaluation of the distal/ segmental branches is precluded by poor contrast opacification as discussed in detail above. Approved by: Calvin Quintana M.D. on 01/30/2017 at 21:34 12-lead ECG Sinus tachycardia Assessment & Plan Latrice Lockwood is a 46 year old female with a history of thyroid carcinoma status post radioisotope I 131 4, irradiation, and thyroidectomy in remission , paralyzed right vocal cord, Kikuchi syndrome, and Ann syndrome presents to [facility] emergency department due to acute shortness of breathe with weakness 1. Healthcare associated post-viral pneumococcal pneumonia. Present on admission Patient having productive cough and CT chest showing some aspiration areas. Meeting criteria from being recently hospitalized in last 90 days. No apparent aspiration on modified barium swallow. Positive human metapneumovirus and Strep. pneumoniae urine antigen. - MRSA screen pending, blood cultures show no growth to date - Stopped Vancomycin and Zosyn IV - Continue ceftriaxone 2 g once a day - Infectious disease consulted and following. Their time and recommendations are appreciated. 2. Hypocalcemia, acute, not present on admission. Active. -Calcium citrate 250 mg PO QID -Continue to monitor with labs -Ionized calcium ordered 3. Severe Sepsis. Present on admission. Improving Met criteria with leukocytosis and tachycardia. Pulmonary infection. Pulmonary embolism has been ruled out as a cause of tachycardia - monitor on telemetry - blood cultures show no growth to date - IV fluids stopped today and continue to monitor - antibiotics as above 4. Lactic acidosis. Present on admission, resolved. Due to tissue hypoxic from sepsis - Lactic acid less than 2 yesterday - IV fluids normal saline at 125 ml/hour stopped as patient has improved today 5. Acute shortness of breathe. Present on admission Due to pneumonia as above - treatment discussed above -DuoNeb treatments as needed 6. Rash at bilateral inguinal intertriginous area -Likely cutaneous candidiasis. No visible discharge. -Nystatin powder twice per day. -Continue to monitor and if it appears to be vaginal yeast infection, will switch to a one time dose of PO Diflucan 7. H/o Kikuchi-Esau Disease -[facility] called to report that the patient does not have Kikuchi-Esau disease. 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 She may have Perez's syndrome secondary to chronic steroid use. She may have an underlying conversion disorder and possibly diverts narcotic medications. -Continue to monitor 8. Hypertension - Continue Metoprolol 25 mg bid and hydrochlorothiazide 25 mg daily - Monitor blood pressure 9. Hypothyroidism with Thyroid cancer in remission - continue Synthroid 10. Anxiety - lorazepam 0.5 mg TID as needed for anxiety 10. Right thoracic muscle spasm and pain - secondary to pneumonia and cough as above - continue home gabapentin - oxycodone and morphine as needed for pain - Acetaminophen as needed for mild pain/fever/headache - Bowel regimen as needed - Antiemetic as needed Patient admitted under inpatient status with expected length of stay > 2 midnights for severity of present symptoms, complexities of treatment plan and risk for adverse event . VTE Prophylaxis: Sub-Q Heparin (Unfractionated) Resuscitation Status: CPR: Attempt Resuscitation Time spent 25 minutes Attending Statement I have seen and evaluated patient at bedside in addition to directly supervising care provided by resident physician. I agree with above documentation. Daniela Gutierrez DO Feb 01, 2017 09:58 Chaz Chavarria DO Feb 02, 2017 07:53
[2017-02-01] MEDS: Alum-Mag Hydrox-Simeth 30 mL Suspension PO PRN (17:43)
--- NOTE | 2017-02-01 18:11 | NUR ---
Activity/blood sugars Pt got up and amb in cuenca a short distance, became SOB but recovered with rest. Enc to use 02 on next walk to ease respiratory burden. PRN MS fairly effective for pain management. Pt blood sugars checked this shift: 286 and 190, insulin given per ordered sliding scale. Currently resting in bed, call light in reach.
[2017-02-01] MEDS ORDERED: Pantoprazole 20 mg ER24 Tablet PO ONE (18:40)
[2017-02-01 20:44] VITALS: BP 156/101; PULSE 102; RESP 20; O2SAT 98
[2017-02-01] MEDS: Ascorbic Acid 500 mg Tablet PO SCH (21:41)
[2017-02-02] MEDS: Heparin 5,000 Unit/mL Inj SUBQ SCH ×3 (01:37→16:48)
--- NOTE | 2017-02-02 05:21 | NUR ---
Pain/Activity Pt reporting pain to chest and left lower lung 05/05, pain increasing with coughing this shift. Medicated pt with 2 mg IV morphine X2 for pain control. Pt up ambulating in cuenca X1 this shift, pt reports shortness of breath with activity, 1L O2 in place.
[2017-02-02 05:51] VITALS: BP 162/103; PULSE 84; RESP 20; O2SAT 97
[2017-02-02] MEDS: SYNTHROID 100 MCG PO SCH ×2 (06:30→08:07)
[2017-02-02] MEDS: SYNTHROID 200 MCG PO SCH ×2 (06:30→08:06)
[2017-02-02 06:44] VITALS: BP 158/97
[2017-02-02 07:04] LABS: BASOPHILS % (AUTO) 0.2 % (0-3); EOSINOPHILS % (AUTO) 3.9 % (0-5); MONOCYTES % (AUTO) 4.5 % (4-12); Mean Corpuscular Hemoglobin 30.2 pg (27.0-35.0); Mean Corpuscular Volume 90.6 fL (81-100); NEUTROPHILS % (AUTO) 50.1 % (40-74); Platelet Count 206 bil/L (150-400)
[2017-02-02] MEDS: Ondansetron 2 mg/mL 2 mL Inj IVPUSH PRN (08:09)
[2017-02-02] MEDS: Insulin LISPRO 300 Unit/3 mL Inj SUBQ SCH ×4 (08:20→21:23)
[2017-02-02] MEDS: Nystatin 100,000 Unit/Gm 15 Gm Powder TOPICAL SCH ×2 (08:23→21:26)
--- NOTE | 2017-02-02 10:34 | PROG NOTE ---
[address] [address] PROGRESS NOTE PATIENT: MARVEL COREA : 1970 MR#: [id number] ADMIT: 01/30/2017 JOB ID: [id number] DATE: 02/02/2017 INFECTIOUS DISEASE FOLLOWUP NOTE: REASON FOR FOLLOWUP: Human metapneumovirus upper respiratory tract infection complicated by pneumococcal pneumonia. INTERVAL HISTORY: Overnight, the patient has continued to have some cough, which has been largely nonproductive. She also still has right pleuritic chest pain and overall malaise. No fevers, chills, or sweats overnight. In general, she thinks she is getting a little bit better. PHYSICAL EXAMINATION: Reveals a somewhat uncomfortable woman who is in no acute distress. She is afebrile at this point, and has been throughout her three-day hospitalization. Current temp is 36.8, pulse 84, respiratory rate 20, blood pressure 158/97. She is saturating well on 2 L. She is awake, alert, oriented. Oral cavity has minimal evidence of pharyngitis with perhaps some erythema at most. No exudate seen. Lungs with decreased breath sounds and a few crackles at the right base. Cardiac tones: Regular rate and rhythm. Abdomen: Soft and nontender. No skin rash noted. LABORATORIES: Include a white count, which has completely normalized now after a high of 21,000 just two days ago at 6200, completely normal diff. Creatinine 0.56. LFT are normal. Procalcitonin rapidly falling from a peak of 1.31 down to 0.6 today. Urinalysis without white cells. Urine pneumococcal antigen was, of course, positive, and human metapneumovirus was detected in a multiplex respiratory PCR. IMPRESSION: This is a difficult case of a woman who had a hospitalization here last month and was eventually sent to the [facility]. Yesterday, the chief internal auditor on our team was able to contact one of the ears, nose, and throat doctors at the [facility]. Their feeling after a careful examination of her case and review of prior biopsies was that the patient did not have Kikuchi-Esau syndrome, and there was no evidence of recurrent malignancy either. 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 This admission was precipitated by a human metapneumovirus, which sounds like she acquired during her recent hospital stay, and then was complicated by pneumococcal pneumonia. This treatment seems to be going well, as the patient is improving with respect to her white count, procalcitonin and clinical status. Standard treatment for pneumococcal pneumonia is 5-7 days. I think we can figure on seven days in this case. RECOMMENDATIONS: 1. I would continue antipneumococcal therapy for a total of seven days. The patient is currently receiving ceftriaxone and this will be, I think, her fourth day of antibiotics today. The Hospitalist team has indicated she may go home on February 04, and if she leaves on that day, I would simply send her home with two days additional amoxicillin 1 g p.o. t.i.d. to continue basically through February 06 and then I would assume that her pneumococcal therapy is finished unless there are additional complications. 2. There is no specific therapy for human metapneumovirus, and it will likely run its course over the next week or two. 3. Infectious Disease will go ahead and sign off at this point, as the patient will likely leave this weekend, but do not hesitate to call if there are any issues. 4. Note that I have given the patient my card and she will contact me if she does not have a satisfactory response with respect to this infection.
[2017-02-02] MEDS: cefTRIAXone Inj 2,000 MG in Dextrose 5% Minibag Plus 50 ML IV SCH (11:09)
[2017-02-02] MEDS: LORazepam 0.5 mg Tablet PO PRN ×2 (11:48→21:33)
[2017-02-02 12:59] VITALS: BP 147/91; PULSE 80; RESP 16; O2SAT 97
--- NOTE | 2017-02-02 15:12 | NUR ---
Shift note Pleasant pt, able to make needs known. Uses call light appropriately. Pt independent in room. Showered this AM. Tolerates IV abx well. Pain managed with PRN meds. asked for PO Ativan 1x. Lots of education provided re diet. Bed in low position, upper rails up, call light in reach. Will continue to monitor.
--- NOTE | 2017-02-02 15:59 | PCM.PNMED ---
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 This morning, she reports some improvement of her right flank pain. It is "spasming" less. Her cough continues to be productive with green, brown sputum. She does not have fever or chills. The rash in her groin area has improved. She does not have vaginal discharge or itching. Exam Vital Signs Vital Sign - Last Date Time Temp Pulse Resp B/P Pulse Ox O2 Delivery O2 Flow Rate FiO2 02/02/17 12:59 36.9 80 16 147/91 97 Nasal Cannula 1.00 Intake and Output 02/01/17 02/01/17 02/02/17 Cumulative From/Thru 15:00 23:00 07:00 01/30/17 19:02 - 02/02/17 06:54 Intake Total 1986 ml 2890 ml 1200 ml 77766 ml Output Total 2950 ml 1900 ml 73387 ml Balance 1986 ml -60 ml -700 ml 890 ml Intake Oral 2000 ml 1200 ml 7432 ml IV Total 1986 ml 890 ml 6658 ml Output Urine Total 2950 ml 1900 ml 49825 ml # Bowel Movements 1 3 Exam General: Alert, Oriented X3, Cooperative, mild distress secondary to back pain Eyes: PERRLA, Scleral Anicteric Mouth: Mouth Normal, Mucous Membranes Moist/[place] Neck: Supple, no Thyromegaly, trachea central, no lymphadenopathy Chest & Lungs: Rhonchi bilateral upper lobes. Cardiovascular: Normal S1, Normal S2, No Murmurs/Rubs/Gallops Abdomen: Soft, Non-tender, Non-distended, Normoactive bowel tones. Musculoskeletal: Unremarkable. Normal range of motion, no swollen or erythematous joints Extremities: No edema, no cyanosis, no clubbing. Skin: Erythema at bilateral intertriginous inguinal folds. Warm and dry Neurological: Grossly neurologically intact, Normal Speech, Sensation Intact IVs and Medications Medications Reviewed: Medications were reviewed in detail Lab and Diagnostics Result Diagram: 02/02/17 0634 02/02/17 0634 X-Rays, CTs and MRIs X-RAY CHEST ONE VIEW, PORTABLE 01/30/17 IMPRESSION: No acute disease Approved by: Calvin Quintana M.D. on 01/30/2017 at 19:58 CT ANGIO CHEST PULMONARY EMBOLISM 01/30/17 IMPRESSION: Bilateral dependent areas of aspiration and mucoid impaction. Recommend clinical correlation to exclude superimposed infection. No gross or central pulmonary embolism, however evaluation of the distal/ segmental branches is precluded by poor contrast opacification as discussed in detail above. Approved by: Calvin Quintana M.D. on 01/30/2017 at 21:34 PROCEDURE: X-RAY BARIUM SWALLOW WITH FOOD & VIDEOGRAPHY IMPRESSION: No laryngeal penetration or tracheobronchial aspiration. Approved by: Shantell Simmons MD, PhD on 01/31/2017 at 17:39 12-lead ECG Sinus tachycardia Assessment & Plan Latrice Lockwood is a 46 year old female with a history of thyroid carcinoma status post radioisotope I 131 4, irradiation, and thyroidectomy in remission , paralyzed right vocal cord, Kikuchi syndrome, and Ann syndrome presents to [facility] emergency department due to acute shortness of breathe with weakness 1. Healthcare associated post-viral pneumococcal pneumonia, acute. Present on admission. Improving. Patient having productive cough and CT chest showing some aspiration areas. Meeting criteria from being recently hospitalized in last 90 days. No apparent aspiration on modified barium swallow. Positive human metapneumovirus and Strep. pneumoniae urine antigen. WBC improving. Patient is afebrile. - MRSA screen negative blood cultures show no growth to date - Stopped Vancomycin and Zosyn IV - Continue ceftriaxone 2 g once a day started on 01/31/17. Once transitioned to PO, ID recommended amoxicillin 1 g p.o. t.i.d. to continue through February 06. - Infectious disease consulted and following. Their time and recommendations are appreciated. 2. Hypocalcemia, acute, not present on admission. Improved. -Calcium citrate 250 mg PO QID, consider decreasing frequency to either BID or TID -Continue to monitor with labs -Ionized calcium ordered and pending 3. Severe Sepsis, acute. Present on admission. Improving Met criteria with leukocytosis and tachycardia. Pulmonary infection. Pulmonary embolism has been ruled out as a cause of tachycardia - monitor on telemetry - blood cultures show no growth to date - IV fluids stopped - antibiotics as above 4. Lactic acidosis, acute. Present on admission. Resolved. Due to tissue hypoxic from sepsis - Lactic acid less than 2 - IV fluids normal saline at 125 ml/hour stopped as patient has continued to improve 5. Acute shortness of breathe. Present on admission Due to pneumonia as above - treatment discussed above -DuoNeb treatments as needed 6. Rash at bilateral inguinal intertriginous area, acute, present on admission. Improving. -Likely cutaneous candidiasis. No visible discharge. -Nystatin powder twice per day. -Continue to monitor and if it appears to be vaginal yeast infection, will switch to a one time dose of PO Diflucan 7. H/o Kikuchi-Esau Disease -[facility] called to report that the patient does not have Kikuchi-Esau disease. 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 She may have [place]'s syndrome secondary to chronic steroid use. She may have an underlying conversion disorder and possibly diverts narcotic medications. -Continue to monitor 8. Hypertension - Continue Metoprolol 25 mg bid and hydrochlorothiazide 25 mg daily - Monitor blood pressure 9. Hypothyroidism with Thyroid cancer in remission - continue Synthroid 10. Anxiety - lorazepam 0.5 mg TID as needed for anxiety 10. Right thoracic muscle spasm and pain - secondary to pneumonia and cough as above - continue home gabapentin - oxycodone as needed for pain. stopped morphine. - Acetaminophen as needed for mild pain/fever/headache - Bowel regimen as needed - Antiemetic as needed Disposition: Likely discharge to home in the next 1-2 days with amoxicillin 1 g p.o. t.i.d. to continue through February 06 pending continued improvement of respiratory status and signs of infection. VTE Prophylaxis: Sub-Q Heparin (Unfractionated) VTE Mechanical Devices: Venous Foot Pump Resuscitation Status: CPR: Attempt Resuscitation Time spent 25 minutes Attending Statement I have seen and evaluated patient at bedside in addition to directly supervising care provided by resident physician. I agree with above documentation. Daniela Gutierrez DO Feb 02, 2017 15:59 Chaz Chavarria DO Feb 03, 2017 15:40
[2017-02-02 20:38] VITALS: BP 160/81; PULSE 95; RESP 20; O2SAT 94
[2017-02-02] MEDS: Ascorbic Acid 500 mg Tablet PO SCH (21:17)
[2017-02-03] MEDS: Heparin 5,000 Unit/mL Inj SUBQ SCH ×3 (00:18→15:31)
[2017-02-03 05:39] VITALS: BP 130/75; PULSE 91; RESP 18; O2SAT 100
[2017-02-03] MEDS: SYNTHROID 100 MCG PO SCH (05:48)
[2017-02-03] MEDS: SYNTHROID 200 MCG PO SCH (05:48)
[2017-02-03 07:21] LABS: BASOPHILS % (AUTO) 0.4 % (0-3); EOSINOPHILS % (AUTO) 3.8 % (0-5); MONOCYTES % (AUTO) 4.9 % (4-12); Mean Corpuscular Hemoglobin 30.3 pg (27.0-35.0); Mean Corpuscular Volume 89.6 fL (81-100); NEUTROPHILS % (AUTO) 50.9 % (40-74); Platelet Count 229 bil/L (150-400)
[2017-02-03] MEDS: Insulin LISPRO 300 Unit/3 mL Inj SUBQ SCH ×4 (08:00→22:00)
[2017-02-03] MEDS: LORazepam 0.5 mg Tablet PO PRN (08:27)
[2017-02-03] MEDS: Nystatin 100,000 Unit/Gm 15 Gm Powder TOPICAL SCH ×2 (08:35→20:30)
[2017-02-03] MEDS: cefTRIAXone Inj 2,000 MG in Dextrose 5% Minibag Plus 50 ML IV SCH (10:58)
--- NOTE | 2017-02-03 11:41 | NUR ---
Social Work-readiness for discharge: Data:EMR reviewed. Pt is on day 4 of hospitalization for tachy per H&P. Pt is not medically stable anticipate later today or tomorrow. Pt resides at home with her where she remains independent with ADLs. Per RN notes, pt has been up independent in her room. Pt and in agreement with home no needs. No anticipated discharge needs. SW will continue to follow if needs arise. Assessment:Pt who is independent at baseline. Plan:Pt to discharge home when medically stable via POV. No anticipated discharge needs. SW will continue to follow if needs arise. PADMINI Gilmore
[2017-02-03 13:11] VITALS: BP 131/83; PULSE 88; RESP 18; O2SAT 96
--- NOTE | 2017-02-03 14:34 | PCM.PNMED ---
Subjective Date of Service Feb 03, 2017 Subjective Latrice Lockwood is a 46 year old female with a history of thyroid carcinoma status post radioisotope I 131 4, irradiation, and thyroidectomy in remission , paralyzed right vocal cord, and Ann syndrome under treatment for strep pneumococcus pneumonia. Hospital day # 5 Overnight: No acute events. Today: The patient states that while she is feeling better she still feels very tired and is only able to walk a short distance before coming short of breath and needing to use her oxygen tank. She has a flight of stairs in her house between her room and the kitchen and bathroom and needs to be able to get around her house. She is still coughing up a lot of phlegm but her shortness of breath is somewhat improved. Exam Vital Signs Vital Sign - Last Date Time Temp Pulse Resp B/P Pulse Ox O2 Delivery O2 Flow Rate FiO2 02/03/17 13:11 36.8 88 18 131/83 96 Nasal Cannula 0.50 Intake and Output 02/02/17 02/02/17 02/03/17 Cumulative From/Thru 15:00 23:00 07:00 01/30/17 19:02 - 02/03/17 05:40 Intake Total 79 ml 1746 ml 800 ml 68441 ml Output Total 1800 ml 2700 ml 86232 ml Balance 79 ml -54 ml -1900 ml -985 ml Intake Oral 1746 ml 800 ml 9978 ml IV Total 79 ml 6737 ml Output Urine Total 1800 ml 2700 ml 88808 ml # Bowel Movements 0 3 Exam General: Alert, Oriented X3, Cooperative, mild distress secondary to back pain Eyes: PERRLA, Scleral Anicteric Mouth: Mouth Normal, Mucous Membranes Moist/[place] Neck: Supple, no Thyromegaly, trachea central, no lymphadenopathy Chest & Lungs: Rhonchi bilaterally in the lower lobes, right worse than left. Cardiovascular: Normal S1, Normal S2, No Murmurs/Rubs/Gallops Abdomen: Soft, Non-tender, Non-distended, Normoactive bowel tones. Musculoskeletal: Unremarkable. Normal range of motion, no swollen or erythematous joints Extremities: No edema, no cyanosis, no clubbing. Skin: Erythema at bilateral intertriginous inguinal folds. Warm and dry Neurological: Grossly neurologically intact, Normal Speech, Sensation Intact IVs and Medications Medications Reviewed: Medications were reviewed in detail Lab and Diagnostics Result Diagram: 02/03/17 0655 02/03/17 0655 X-Rays, CTs and MRIs X-RAY CHEST ONE VIEW, PORTABLE 01/30/17 IMPRESSION: No acute disease Approved by: Calvin Quintana M.D. on 01/30/2017 at 19:58 CT ANGIO CHEST PULMONARY EMBOLISM 01/30/17 IMPRESSION: Bilateral dependent areas of aspiration and mucoid impaction. Recommend clinical correlation to exclude superimposed infection. No gross or central pulmonary embolism, however evaluation of the distal/ segmental branches is precluded by poor contrast opacification as discussed in detail above. Approved by: Calvin Quintana M.D. on 01/30/2017 at 21:34 PROCEDURE: X-RAY BARIUM SWALLOW WITH FOOD & VIDEOGRAPHY IMPRESSION: No laryngeal penetration or tracheobronchial aspiration. Approved by: Shantell Simmons MD, PhD on 01/31/2017 at 17:39 12-lead ECG Sinus tachycardia Assessment & Plan Latrice Lockwood is a 46 year old female with a history of thyroid carcinoma status post radioisotope I 131 4, irradiation, and thyroidectomy in remission , paralyzed right vocal cord, and Ann syndrome under treatment for strep pneumococcus pneumonia. Hospital day # 5 1. Healthcare associated post-viral pneumococcal pneumonia, acute. Present on admission. Improving. Patient having productive cough and CT chest showing some aspiration areas. Meeting criteria from being recently hospitalized in last 90 days. No apparent aspiration on modified barium swallow. Positive human metapneumovirus and Strep. pneumoniae urine antigen. WBC improving. Patient is afebrile. - MRSA screen negative blood cultures show no growth to date - Stopped Vancomycin and Zosyn IV - Continue ceftriaxone 2 g once a day started on 01/31/17. Once transitioned to PO, ID recommended amoxicillin 1 g p.o. t.i.d. to continue through February 06. - Infectious disease signed off. 2. Hypocalcemia, acute, not present on admission. Improved. -Calcium citrate 250 mg PO QID, consider decreasing frequency to either BID or TID -Continue to monitor with labs -Ionized calcium ordered and pending 3. Severe Sepsis, acute. Present on admission. Improving Met criteria with leukocytosis and tachycardia. Pulmonary infection. Pulmonary embolism has been ruled out as a cause of tachycardia - monitor on telemetry - blood cultures show no growth to date - IV fluids stopped - antibiotics as above 4. Lactic acidosis, acute. Present on admission. Resolved. Due to tissue hypoxic from sepsis - Lactic acid less than 2 - IV fluids normal saline at 125 ml/hour stopped as patient has continued to improve 5. Acute shortness of breathe. Present on admission Due to pneumonia as above - treatment discussed above - DuoNeb treatments as needed 6. Rash at bilateral inguinal intertriginous area, acute, present on admission. Improving. -Likely cutaneous candidiasis. No visible discharge. -Nystatin powder twice per day. -Continue to monitor and if it appears to be vaginal yeast infection, will switch to a one time dose of PO Diflucan 7. H/o Kikuchi-Esau Disease -[facility] called to report that the patient does not have Kikuchi-Esau disease. 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 She may have [place]'s syndrome secondary to chronic steroid use. She may have an underlying conversion disorder and possibly diverts narcotic medications. -Continue to monitor 8. Hypertension - Continue Metoprolol 25 mg bid and hydrochlorothiazide 25 mg daily - Monitor blood pressure 9. Hypothyroidism with Thyroid cancer in remission - continue Synthroid 10. Anxiety - lorazepam 0.5 mg TID as needed for anxiety 10. Right thoracic muscle spasm and pain - secondary to pneumonia and cough as above - continue home gabapentin - oxycodone as needed for pain. stopped morphine. - Acetaminophen as needed for mild pain/fever/headache - Bowel regimen as needed - Antiemetic as needed Disposition: Likely discharge to home tomorrow with amoxicillin 1 g p.o. t.i.d. to continue through February 06 pending continued improvement of respiratory status and signs of infection. VTE Prophylaxis: Sub-Q Heparin (Unfractionated) VTE Mechanical Devices: Intermittant Pneumatic CD Resuscitation Status: CPR: Attempt Resuscitation Time spent 30 minutes Attending Statement I have seen and evaluated patient at bedside in addition to directly supervising care provided by resident physician. I agree with above documentation. Faith Castillo DO Feb 03, 2017 14:34 Chaz Chavarria DO Feb 03, 2017 16:02
--- NOTE | 2017-02-03 15:51 | NUR ---
O2 Pt maintaining saturation in mid 90s on RA. Was on 0.5L prior to taking off NC. Pt tolerating it well. Reasoning provided by and RN. Pt ambulated around the unit 2x, c/o some burning in chest but notes improvement from yesterday. Will continue to monitor.
[2017-02-03] MEDS: Alum-Mag Hydrox-Simeth 30 mL Suspension PO PRN (18:05)
[2017-02-03 18:49] VITALS: BP 144/86; PULSE 126; RESP 19; O2SAT 96
[2017-02-03 21:02] VITALS: BP 149/97; PULSE 100; RESP 18; O2SAT 97
[2017-02-03] MEDS: Ascorbic Acid 500 mg Tablet PO SCH (21:41)
[2017-02-04] MEDS: LORazepam 0.5 mg Tablet PO PRN (00:11)
[2017-02-04] MEDS: Heparin 5,000 Unit/mL Inj SUBQ SCH ×2 (00:11→08:49)
[2017-02-04 04:30] VITALS: BP 114/68; PULSE 87; RESP 18; O2SAT 96
--- NOTE | 2017-02-04 04:57 | NUR ---
O2 patient has not required O2 tonight. she has remained on RA while sleeping. CPOX in place. 02 maintained above 90% the entire night. Patient denies SOB at rest. medicated throughout the night with PRN ativan and oxycodone for pain when coughing.
[2017-02-04] MEDS: SYNTHROID 200 MCG PO SCH (05:38)
[2017-02-04] MEDS: SYNTHROID 100 MCG PO SCH (05:38)
[2017-02-04] MEDS: Nystatin 100,000 Unit/Gm 15 Gm Powder TOPICAL SCH (08:51)
[2017-02-04] MEDS: Insulin LISPRO 300 Unit/3 mL Inj SUBQ SCH ×2 (08:52→11:53)
[2017-02-04 09:39] LABS: Mean Corpuscular Hemoglobin 29.8 pg (27.0-35.0); Mean Corpuscular Volume 89.1 fL (81-100)
[2017-02-04 09:45] VITALS: BP 128/86; PULSE 91; RESP 18; O2SAT 94
[2017-02-04] MEDS ORDERED: CALCIT PO (10:01)
[2017-02-04] MEDS ORDERED: AMOX500T2 PO (10:03)
[2017-02-04] MEDS: cefTRIAXone Inj 2,000 MG in Dextrose 5% Minibag Plus 50 ML IV SCH (10:25)
--- NOTE | 2017-02-04 11:38 | PCM.DIMED ---
Daniela Gutierrez DO 02/04/17 1001: Discharge Instructions Date of Service Feb 04, 2017 Dates of Hospitalization Jan 30, 2017 at 22:21 Diet No restrictions Activity Limited until seen by PCP Call your provider Fever or Chills, Shortness of breath, Bleeding, Chest pain, Excessive diarrhea Patient Instructions For the pneumonia, continue your antibiotic regimen by taking amoxicillin 1,000 mg three times per day for the next 2 days. Continue probiotics during your antibiotic course. You can also continue to use the Nystatin powder for the rash. Continue to use the swallowing technique as instructed by the speech therapist. Return to work starting on 02/12/2017 with half-days for 1 week, and then starting on 02/19/2017, return to full-time. For your calcium level, continue calcium supplements daily. Do not take calcium at the same time as your levothyroxine. Discuss with your primary care provider about continuing calcium supplements after having your calcium level checked with a BMP in 1 week. Continue all other medications as previously prescribed. Follow up with your primary care provider in 1 week. Follow-up Provider: OTHER,PHYSICIAN Follow-up with PCP in: 1 week (Dr. Kwan Frazier) Chaz Chavarria DO 02/04/17 1633: Discharge Instructions Attending's Statement Read and agree Daniela Gutierrez DO Feb 04, 2017 10:01 Chaz Chavarria DO Feb 04, 2017 16:33
--- NOTE | 2017-02-04 13:20 | NUR ---
Discharge Nursing note: Patient was discharged to home at 1320. Her IV was discontinued intact. All of her discharge information was reviewed with her and her questions were answered to her satisfaction. She was brought to the hospital lobby in a wheelchair by nursing staff member and she was driven home by her . provided excuse from work note for patient at discharge.
--- NOTE | 2017-02-04 16:54 | PCM.DC.MED ---
Discharge Summary Date of Service Feb 04, 2017 Dates of Hospitalization Date of Hospital Admission Jan 30, 2017 at 22:21 Date of Discharge: Feb 04, 2017 Providers: Admitting Physician: Germán Hartley MD Primary Care Physician: Other,Physician Attending Physician: Germán Hartley MD Procedures XRay, CTs & MRIs X-RAY CHEST ONE VIEW, PORTABLE 01/30/17 IMPRESSION: No acute disease Approved by: Calvin Quintana M.D. on 01/30/2017 at 19:58 CT ANGIO CHEST PULMONARY EMBOLISM 01/30/17 IMPRESSION: Bilateral dependent areas of aspiration and mucoid impaction. Recommend clinical correlation to exclude superimposed infection. No gross or central pulmonary embolism, however evaluation of the distal/ segmental branches is precluded by poor contrast opacification as discussed in detail above. Approved by: Calvin Quintana M.D. on 01/30/2017 at 21:34 PROCEDURE: X-RAY BARIUM SWALLOW WITH FOOD & VIDEOGRAPHY IMPRESSION: No laryngeal penetration or tracheobronchial aspiration. Approved by: Shantell Simmons MD, PhD on 01/31/2017 at 17:39 ECG 12 Lead Sinus tachycardia Brief History From the history and physical performed by Dr. Germán Hartley on 01/30/2017: Latrice Lockwood is a 46 year old female with a history of thyroid carcinoma status post radioisotope I 131 4, irradiation, and thyroidectomy in remission , paralyzed right vocal cord, Kikuchi syndrome, and Ann syndrome presents to [facility] emergency department due to acute shortness of breathe with weakness She was accompanied by her complaining of sudden onset shortness of breath and generalized weakness status post discharge from after being treated for jaw pain. Associated symptoms include pleuritic pain, fever (101.3F) , nausea, vomiting. She is coughing up some brownish colored phlegm. Denies any sick contacts at home but was hospitalized for a few weeks states that the patient was originally seen here in the ER three weeks ago for jaw pain that was thought to be due to Dayan's, admitted to the hospital here for two weeks, then transported by EMS to where they continued with steroids and antibiotics, before all medications to see if they could elicit a culture. She was discharged without any antibiotics Patient was discharged from three days ago, Dr. Tellez was the lead physician during her visit at . Case discussed with Dr Mcgrath, no infection identified and due abnormal heart rate and leukocytosis with lactic acidosis. Plans to admit for Iv fluids and close observation overnight. Flu negative. CT chest showed no Pulmonary embolism Hospital Course Latrice Lockwood is a 46 year old female with a history of thyroid carcinoma status post radioisotope I 131 4, irradiation, and thyroidectomy in remission , paralyzed right vocal cord, and Ann syndrome under treatment for strep pneumococcus pneumonia. 1. Healthcare associated post-viral pneumococcal pneumonia, acute. Present on admission. Improving. Patient had productive cough and CT chest showed some areas of aspiration and mucoid impaction. Met criteria from being recently hospitalized in last 90 days. No apparent aspiration on modified barium swallow. Speech therapy recommended using chin tuck to the right for all swallows to prevent dysphagia. Positive human metapneumovirus and Strep. pneumoniae urine antigen. WBC improved. Patient was afebrile. - MRSA screen was negative, blood cultures showed no growth to date - Stopped Vancomycin and Zosyn IV - Ceftriaxone 2 g once a day started on 01/31/17 for total of 5 doses. Transitioned to PO at discharge, ID recommended amoxicillin 1 g p.o. t.i.d. to continue through February 06. - Infectious disease signed off. 2. Hypocalcemia, acute, not present on admission. Improved. -Calcium citrate 250 mg PO QID -Ionized calcium ordered and pending -Decreased to calcium citrate 250 mg PO BID at discharge and recommend follow up with primary care provider with BMP in 1 week to discuss possibly discontinuing calcium supplements 3. Severe Sepsis, acute. Present on admission. Improved. Met criteria with leukocytosis and tachycardia. Pulmonary infection. Pulmonary embolism was ruled out as a cause of tachycardia - monitored on telemetry - blood cultures showed no growth to date - IV fluids stopped after improvement of symptoms and WBC and tachycardia - antibiotics as above 4. Lactic acidosis, acute. Present on admission. Resolved. Due to tissue hypoxic from sepsis - Initially lactic acid 2.8 but then decreased to less than 2. - IV fluids normal saline were given 5. Acute shortness of breathe. Present on admission Due to pneumonia as above - treatment discussed above - DuoNeb treatments as needed were available. 6. Rash at bilateral inguinal intertriginous area, acute, present on admission. Improved. -Likely cutaneous candidiasis. No visible discharge. No vaginal discharge or itching reported. -Nystatin powder twice per day and probiotics were given -If it appears to be vaginal yeast infection, considering switching to a one time dose of PO Diflucan as an outpatient 7. H/o Kikuchi-Esau Disease -[facility] called to report to the Infectious Disease resident that the patient does not have Kikuchi-Esau disease. She had multiple negative lymph node biopsies. 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 -Records sent from the [facility] support the above mentioned telephone conversation. 8. Hypertension - Continued Metoprolol 25 mg bid and hydrochlorothiazide 25 mg daily 9. Hypothyroidism with Thyroid cancer in remission - Continued Synthroid 10. Anxiety - Patient was given lorazepam 0.5 mg TID as needed for anxiety 10. Right thoracic muscle spasm and pain - secondary to pneumonia and cough as above - continued home gabapentin - oxycodone as needed for pain. Exam Vital Signs (Last) Date Time Temp Pulse Resp B/P Pulse Ox O2 Delivery O2 Flow Rate FiO2 02/04/17 09:45 36.8 91 18 128/86 94 Room Air 02/03/17 18:49 0.50 Exam General: Alert, Oriented X3, Cooperative, no acute distress, resting in bed. Eyes: PERRLA, Scleral Anicteric Mouth: Mouth Normal, Mucous Membranes Moist/Bond Neck: Supple, no Thyromegaly, trachea central, no lymphadenopathy Chest & Lungs: Fine rhonchi bilaterally in the lower lobes, right worse than left. Cardiovascular: Normal S1, Normal S2, No Murmurs/Rubs/Gallops Abdomen: Soft, Non-tender, Non-distended, Normoactive bowel tones. Musculoskeletal: Unremarkable. Normal range of motion, no swollen or erythematous joints. Right lumbar paraspinal muscle tension. Extremities: No edema, no cyanosis, no clubbing. Skin: Mild erythema at bilateral intertriginous inguinal folds. Warm and dry Neurological: Grossly neurologically intact, Normal Speech, Sensation Intact Test 01/30/17 19:03 01/30/17 19:15 01/30/17 20:45 01/30/17 20:52 Troponin T < 0.010ug/L (0.0-0.011) Lipase 34U/L (13-60) Thyroid Stimulating Hormone (TSH) 9.190uIU/mL (0.450-4.500) Free Thyroxine 1.33ng/dL (0.82-1.77) Hold Lund Top Tube Received (Received) Urine Legionella pneumophilia Ag Negative (Negative) Urine Color Yellow (YELLOW) Urine Appearance Clear (CLEAR,HAZY) Urine pH 7.0 (5.0-8.0) Urine Specific [place] 1.010 (1.003-1.035) Urine Protein Negativemg/dL (NEG,TRACE) Urine Glucose (UA) Negativemg/dL (NEGATIVE) Urine Ketones Negativemg/dL (NEGATIVE) Urine Occult Blood Negative (NEGATIVE) Urine Nitrite Negative (NEGATIVE) Urine Bilirubin Negative (NEGATIVE) Urine Urobilinogen Normalmg/dL (NORMAL) Urine Leukocyte Esterase Negative (NEGATIVE) Urine RBC 0-2/hpf (0-2) Urine WBC 0-5/hpf (0-5) Urine Epithelial Cells Occasional/hpf (NONE-MOD) Urine Crystals None seen (NONE SEEN) Urine Bacteria None/hpf (NONE-FEW) Urine Hyaline Casts None/lpf (NONE) Urine Granular Casts None seen (NONE SEEN) Urine Waxy Casts None seen (NONE SEEN) Urine Red Blood Cell Casts None seen (NONE SEEN) Urine White Blood Cell Casts None seen (NONE SEEN) Urine Mucus None seen (None Seen) Urine Trichomonas None seen (NONE SEEN) Urine Yeast None (NONE SEEN) Urine Culture Reflexed Not indicated Test 01/31/17 04:45 01/31/17 14:00 01/31/17 19:36 02/01/17 06:10 Band Neutrophils % 7% (1-5) Hematology Comments Hold Urine Received (Received) Lactic Acid Level 1.6mmol/L (0.4-2.0) Hemoglobin A1c 7.0% (4.8-5.6) Phosphorus Level 2.5mg/dL (2.5-4.9) Magnesium Level 1.6mg/dL (1.6-2.6) Test 02/01/17 14:33 02/02/17 06:34 02/03/17 06:55 02/04/17 09:00 Procalcitonin 0.59ng/mL (0.00-0.08) Neutrophils (%) (Auto) 50.9% (40-74) Lymphocytes (%) (Auto) 39.5% (14-46) Monocytes (%) (Auto) 4.9% (4-12) Eosinophils (%) (Auto) 3.8% (0-5) Basophils (%) (Auto) 0.4% (0-3) Total Bilirubin 0.3mg/dL (0.0-1.2) Aspartate Amino Transf (AST/SGOT) 13U/L (0-50) Alanine Aminotransferase (ALT/SGPT) 29U/L (0-32) Alkaline Phosphatase 61U/L (25-150) Total Protein 6.3g/dL (6.4-8.4) Albumin 3.7g/dL (3.4-5.0) White Blood Count 5.9th/mm3 (3.8-10.1) Red Blood Count 3.96mil/mm3 (3.90-5.20) Hemoglobin 11.8g/dL (12.0-15.6) Hematocrit 35.3% (35.0-46.0) Mean Corpuscular Volume 89.1fL (81-100) Mean Corpuscular Hemoglobin 29.8pg (27.0-35.0) Mean Corpuscular Hemoglobin Concent 33.4% (32.0-37.0) Red Cell Distribution Width 12.8% (12.3-15.4) Platelet Count 278bil/L (150-400) Sodium Level 140mEq/L (134-144) Potassium Level 4.0mEq/L (3.5-5.2) Chloride Level 97mEq/L (97-108) Carbon Dioxide Level 26mmol/L (18-29) Blood Urea Nitrogen 9mg/dL (6-24) Creatinine 0.51mg/dL (0.57-1.00) Estimat Glomerular Filtration Rate 186mL/min (>59) Glucose Level 174mg/dL (60-99) Calcium Level 8.5mg/dL (8.5-10.1) Discharge Medications Discharge Medications Amoxicillin (Amoxicillin) 500 Mg Tablet 1,000 MG PO TID Prescribed by: DANIELA GUTIERREZ DO Ascorbic Acid (Vitamin C) 1,000 Mg Tab.chew 1,000 MG PO DAILY (Reported) Calcium Citrate (Calcium Citrate) 250 Mg Tablet 250 MG PO BID Prescribed by: DANIELA GUTIERREZ DO Cholecalciferol (Vitamin D3) (Vitamin D3) 5,000 Unit Capsule 5,000 UNIT PO DAILY (Reported) Gabapentin (Gabapentin) 300 Mg Capsule 300 MG PO TID (Reported) Hydrochlorothiazide (Hydrochlorothiazide) 25 Mg Tablet 25 MG PO DAILY (Reported ) Levothyroxine (Synthroid) 300 Mcg Tablet 300 MCG PO DAILY (Reported) Metoprolol Tartrate (Metoprolol Tartrate) 25 Mg Tablet 25 MG PO BID (Reported) Multivitamin (Multi Vitamin Daily) 1 Each Tablet 1 EACH PO DAILY (Reported) Omeprazole (Omeprazole) 20 Mg Tablet.dr 20 MG PO DAILY (Reported) As needed Hydromorphone (Hydromorphone) 2 Mg Tablet 2-4 MG PO Q6H PRN PRN For Pain ( Reported) Followup Plan Discharge Diet: No restrictions Discharge Activity: Limited until seen by PCP Patient Instructions For the pneumonia, continue your antibiotic regimen by taking amoxicillin 1,000 mg three times per day for the next 2 days. Continue probiotics during your antibiotic course. You can also continue to use the Nystatin powder for the rash. Continue to use the swallowing technique as instructed by the speech therapist. Return to work starting on 02/12/2017 with half-days for 1 week, and then starting on 02/19/2017, return to full-time. For your calcium level, continue calcium supplements daily. Do not take calcium at the same time as your levothyroxine. Discuss with your primary care provider about continuing calcium supplements after having your calcium level checked with a BMP in 1 week. Continue all other medications as previously prescribed. Follow up with your primary care provider in 1 week. Follow-up Provider: OTHER,PHYSICIAN Follow-up with PCP in: 1 week (Dr. Kwan Frazier) Time spent 40 minutes Attending Statement I have seen and evaluated patient in addition to directly supervising care provided by resident physician. I agree with above documentation Daniela Gutierrez DO Feb 04, 2017 16:54 Chaz Chavarria DO Feb 04, 2017 17:18
== END 2017-02-04 13:19 | disposition home or self-care (01) | DRG 871 ==
LOC: SED 18:54 → EDBD 18:54 → MPC 22:21
PROVIDERS: ADMIT Hospitalist; ATTEND Hospitalist
DX: A41.9 Sepsis, unspecified organism (principal); J13 Pneumonia due to Streptococcus pneumoniae; E87.2 Acidosis; R65.20 Severe sepsis without septic shock; E78.5 Hyperlipidemia, unspecified; J06.9 Acute upper respiratory infection, unspecified; B97.81 Human metapneumovirus as the cause of diseases classified elsewhere; E86.0 Dehydration; J38.01 Paralysis of vocal cords and larynx, unilateral; G90.2 Horner's syndrome; I10 Essential (primary) hypertension; E89.0 Postprocedural hypothyroidism; Z85.850 Personal history of malignant neoplasm of thyroid

== ENCOUNTER 2017-04-09 09:29 | Emergency (ER) | payer OTHER ==
[~2017-04-09] VITALS: Ht 172.7 cm; Wt 123.6 kg
[~2017-04-09 09:29] MED LIST changes: +AMOX500T2 PO; +CALCIT PO; +GABA-502 PO; +HYDR2TAB28 PO
[2017-04-09 09:40] VITALS: BP 186/108; PULSE 97; RESP 16; O2SAT 96
[2017-04-09] MEDS ORDERED: 0.9% Sodium Chloride 1,000 ML IV ONE (10:04)
--- NOTE | 2017-04-09 10:15 | ED.REPORT ---
HPI-General Illness Date of Service April 09, 2017 ED Provider: Vadim Ponce DO 46 year old female with a history of HTN, hyperlipidemia, thyroid carcinoma status post radioisotope I 131 4, irradiation, and thyroidectomy in remission , paralyzed right vocal cord, Kikuchi syndrome, and Ann syndrome presents to the ER complaining of right sided neck pain, onset today. The pt reports she was seen at two months ago for possible salivary gland infection and was discharged with antibiotics and instructions on salt-water rinse. She believes the infection has returned. Associated sx include fever of 102 degrees celsius, pressure in her right ear, swelling of the right side of her neck, trismus and dysphagia. She took a Tylenol this morning, with little change in her sx. Nursing Notes Stated Complaint: RECURRENT JAW INFECTION Chief Complaint: General Complaint Nursing Notes Reviewed: Yes Allergies: Coded Allergies: dexamethasone (Verified Adverse Reaction, Intermediate, 05/17/16) RASH AND ITCH-NEED PREMED WITH BENADRYL IF RECEIVING. methylprednisolone (Verified Adverse Reaction, Intermediate, HIVES, ) promethazine (Verified Adverse Reaction, Intermediate, NAUSEA AND VOMITTING, 05/17/16) Scheduled Amoxicillin (Amoxicillin) 500 Mg Tablet 1,000 MG PO TID Amoxicillin/Clav K 875-125 mg (Augmentin 875-125 mg) 1 Each Tablet 1 TABLET PO BID Ascorbic Acid (Vitamin C) 1,000 Mg Tab.chew 1,000 MG PO DAILY Calcium Citrate (Calcium Citrate) 250 Mg Tablet 250 MG PO BID Cholecalciferol (Vitamin D3) (Vitamin D3) 5,000 Unit Capsule 5,000 UNIT PO DAILY Gabapentin (Gabapentin) 300 Mg Capsule 300 MG PO TID Hydrochlorothiazide (Hydrochlorothiazide) 25 Mg Tablet 25 MG PO DAILY Levothyroxine (Synthroid) 300 Mcg Tablet 300 MCG PO DAILY Metoprolol Tartrate (Metoprolol Tartrate) 25 Mg Tablet 25 MG PO BID Multivitamin (Multi Vitamin Daily) 1 Each Tablet 1 EACH PO DAILY Omeprazole (Omeprazole) 20 Mg Tablet.dr 20 MG PO DAILY Prednisone (PredniSONE) 20 Mg Tablet 20 MG PO DAILY Scheduled PRN Hydromorphone (Hydromorphone) 2 Mg Tablet 2-4 MG PO Q6H PRN PRN For Pain Hydromorphone (Dilaudid) 2 Mg Tablet 2-4 MG PO TID PRN PRN Pain General Time Seen by MD: 09:51 Chief Complaint Other (Right sided neck pain) Hx Obtained From: Patient Arrived By: Walk-in Sudden in Onset?: No Onset Occurred: 21 - 23 hours ago Symptom Duration: Since onset Location: : Ear left: Neck Quality: Painful Radiation: : Does not radiate Severity: Current: Mild Severity: Maximum: Mild Recent Healthcare: Recent doctor visit Similar Sx Previous: Yes Past Medical History Past Medical History Notes: The pt is seen by ENT physician Dr. Berkowitz at . Past Medical History 1. Hyperlipidemia. 2. 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 3. Paralyzed right vocal cord. 4. 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 Endometriosis 7. Hypertension 8. Right Submandibular Node, negative for malignancy. Past Surgical History 1. Appendectomy. 2. Total abdominal hysterectomy. 3. Tonsillectomy - with biopsy - benign 4. Thyroidectomy. Family History Mother who is living with previous PR 3 earliest age 21 years of age, CVA 3, and cardiac arrest. Father with diabetes mellitus diagnosed in his 70s. Smoking History Never Smoker Social History Alcohol Use: Denies alcohol use Drug Use: Denies drug use Other Social History: Good social support, , Local resident Ambulatory Status Independent Review of Systems Reports: Trismus Full Review of Systems Constitutional: Reports: Fever Ears / Nose / Throat: Reports: Earache right (Pressure in right ear) GI: Reports: Dysphagia Musculoskeletal: Reports: Neck pain (Right side) Complete sys rev & neg: except as marked. Physical Exam Vital Signs Vital Signs Date Time Temp Pulse Resp B/P Pulse Ox O2 Delivery O2 Flow Rate FiO2 04/09/17 11:43 86 16 146/77 100 Room Air 04/09/17 09:40 36.7 97 16 186/108 96 Room Air Initial VS: Reviewed Head / Eyes: Atraumatic, Normocephalic Respiratory: Breath sounds normal, Clear to auscultation, No respiratory distress Cardiovascular: Regular rate & rhythm, Heart sounds normal, Intact distal pulses Abdomen / GI: Soft, Non-tender, No guarding, No rebound, No distention Extremities: Vascular intact, Neuro intact, No swelling, No tenderness Skin: Warm, Dry, No cyanosis Neurologic: Alert, Oriented, Nonfocal General/Constitutional: Awake, Alert, Cooperative Hypertensive ENT: Atraumatic, No trismus Right ear TM erythema Parotid gland tenderness Right lymphadenopathy. Neck: Atraumatic, Supple, Full range of motion Right sided neck swelling Post surgical scar on right side of the neck Upper Extremities Upper Extremity / MS: Atraumatic, Full range of motion, No swelling, Non-tender Interpretation & Diagnostics PROCEDURE: CT NECK SOFT TISSUES WITH CONTRAST ([id number]) IMPRESSION: 1. Interval increase in size of lymph nodes within the neck may be reactive to an infection that is not apparent on CT or related to the patient's known cancer. Please correlate clinically. 2. Increasing right parotid nodules probably represent increasing size of intraparotid lymph nodes. However, parotid tumors cannot be excluded. 3. Unchanged mass involving the right vocal cord. 4. Edema within the right neck may be postoperative. However, soft tissue infection cannot be entirely excluded. 5. No soft tissue abscesses of the neck. 6. Postoperative changes of the right neck. Dictated by: Naveed Fox M.D. on 04/09/2017 at 10:45 Approved by: Naveed Fox M.D. on 04/09/2017 at 10:58 Lab Results Interpretation Result Diagram: 04/09/17 1000 04/09/17 1000 Test 04/09/17 10:00 White Blood Count 10.0th/mm3 (3.8-10.1) Red Blood Count 4.58mil/mm3 (3.90-5.20) Hemoglobin 13.9g/dL (12.0-15.6) Hematocrit 41.1% (35.0-46.0) Mean Corpuscular Volume 89.7fL (81-100) Mean Corpuscular Hemoglobin 30.3pg (27.0-35.0) Mean Corpuscular Hemoglobin Concent 33.8% (32.0-37.0) Red Cell Distribution Width 14.2% (12.3-15.4) Platelet Count 294bil/L (150-400) Neutrophils (%) (Auto) 65.1% (40-74) Lymphocytes (%) (Auto) 26.7% (14-46) Monocytes (%) (Auto) 6.6% (4-12) Eosinophils (%) (Auto) 1.0% (0-5) Basophils (%) (Auto) 0.3% (0-3) Sodium Level 138mEq/L (134-144) Potassium Level 3.5mEq/L (3.5-5.2) Chloride Level 98mEq/L (97-108) Carbon Dioxide Level 23mmol/L (18-29) Blood Urea Nitrogen 8mg/dL (6-24) Creatinine 0.54mg/dL (0.57-1.00) Estimat Glomerular Filtration Rate 174mL/min (>59) Glucose Level 136mg/dL (60-99) Lactic Acid Level 1.2mmol/L (0.4-2.0) Calcium Level 8.7mg/dL (8.5-10.1) Magnesium Level 1.6mg/dL (1.6-2.6) Total Bilirubin 0.5mg/dL (0.0-1.2) Aspartate Amino Transf (AST/SGOT) 24U/L (0-50) Alanine Aminotransferase (ALT/SGPT) 30U/L (0-32) Alkaline Phosphatase 88U/L (25-150) Total Protein 8.2g/dL (6.4-8.4) Albumin 4.3g/dL (3.4-5.0) Re-Eval/Medical Decision Med Decision/Clinical Course No evidence of severe sepsis or abscess. Will begin Augmentin and prednisone. Return and follow-up precautions given. Source of Hx: Old records Time of Eval: 12:08 Re-Evaluation/Progress Note: Rechecked pt. Discussed lab, imaging results and diagnosis. Informed the pt of the plan to discharge. Pt understands and agrees with plan. F/U instructions and RTER warning given. All questions addressed. Counseled Regarding: Diagnosis, Lab results, Need for follow-up, When/why to return to ED Discharge & Departure Primary Impression: Parotitis Disposition: Home Discharge Condition All VS Reviewed: Yes Condition: Stable Additional Instructions: Begin taking Augmentin, naproxen, prednisone, Dilaudid. Call Dr. Pisano today for a close follow-up appointment. Return to the ER if you develop severe swelling to your face or jaw or neck, trouble breathing, high fever, lethargy, or other concerns. Referrals: OTHER,PHYSICIAN (PCP) (Family) Scribe Attestation Portions of this note were transcribed by Chapito Wagner. I, , personally performed the history, physical exam and medical decision-making;I reviewed and confirmed the accuracy of the information in the transcribed note. Signed by Aide Lindsey. 04/09/17 1238 Vadim Ponce DO April 09, 2017 10:15 Chapito Wagner April 09, 2017 10:24
[2017-04-09 10:19] LABS: BASOPHILS % (AUTO) 0.3 % (0-3); MONOCYTES % (AUTO) 6.6 % (4-12); Mean Corpuscular Hemoglobin 30.3 pg (27.0-35.0); Mean Corpuscular Volume 89.7 fL (81-100); NEUTROPHILS % (AUTO) 65.1 % (40-74); Platelet Count 294 bil/L (150-400)
[2017-04-09] MEDS ORDERED: Dexamethasone Inj 10 MG in 0.9% Sodium Chloride-Pha MIX 50 ML IV ONE (10:25)
[2017-04-09 10:47] LABS: Magnesium 1.6 mg/dL (1.6-2.6)
[2017-04-09] MEDS ORDERED: Ketorolac 15 mg/mL Inj IVPUSH ONE (11:10)
[2017-04-09 11:43] VITALS: BP 146/77; PULSE 86; RESP 16; O2SAT 100
--- NOTE | 2017-04-09 11:59 | DRSVH ---
PROCEDURE: CT NECK SOFT TISSUES WITH CONTRAST ([id number]) INDICATIONS: pain R ear to jaw and down neck, h/o CA TECHNIQUE: After the administration of intravenous contrast, 3.0 mm axial sections acquired from the sella to th e aortic arch. Additional oblique axial 3.0 mm sections acquired through the pharynx. 3 mm thick co radha reformats were generated. For radiation dose reduction, the following was used: automated exp osure control. COMPARISON: [facility], CT, CT NECK SOFT TISSUE W CON, 01/17/2017, 19:37. [facility], CT, CT NECK SOFT TISSUE W CON, 06/28/2016, 7:55. FINDINGS: Image quality: Excellent. Lymph nodes: Multiple enlarged lymph nodes are identified within the right and left neck with the lar gest located in the submandibular region on the right measuring 2.0 x 1.6 cm (image 38, series 2), pr eviously measuring 1.1 x 0.9 cm. Other increasing lymph nodes are seen within the neck. Enlarging n odules within the right parotid gland are evident. One of the largest measures 1.5 x 1.0 cm (image 3 1, series 2), positioned adjacent to the mandible, previously measuring 1.1 x 0.7 cm. (However, this lymph node is similar in size to the exam dated 06/28/16.) Vessels: Visualized vasculature appears patent. However, no jugular vein is seen on the right, dorothy lar to prior studies, which may be postoperative or congenital. Mild carotid artery atherosclerosis appears to be present. Neck spaces: Mild prominence of the palatine tonsils is present without an associated fluid collecti on. The hypopharynx is somewhat narrowed, which probably is positional. The nasopharynx is unremark able. There continues to be in the mass involving the right vocal fold that measures 1.3 x 0.9 cm, n ot significantly changed. The structure demonstrates increased density. Otherwise, the vocal cords are unchanged. The pyriform sinuses, epiglottis, vallecula, and tongue base all appear normal. Extr amucosal spaces appear unremarkable. No loculated fluid collections. Glands: The right submandibular gland probably is surgically absent. The left submandibular gland is within normal limits. Multiple nodules within the right parotid gland have slightly increased in si ze. The left parotid gland is unremarkable. Thyroid gland appears surgically absent. Miscellaneous: Visualized brain and orbits appear normal. Lung apices appear clear. Superficial so ft tissues appear normal. Bones: No suspicious bony lesions. The imaged paranasal sinuses demonstrate mild mucosal thickening of the ethmoid air cells. Otherwise, the imaged paranasal sinuses and mastoid air cells are clear. IMPRESSION: 1. Interval increase in size of lymph nodes within the neck may be reactive to an infection that is not apparent on CT or related to the patient's known cancer. Please correlate clinically. 2. Increasing right parotid nodules probably represent increasing size of intraparotid lymph nodes. However, parotid tumors cannot be excluded. 3. Unchanged mass involving the right vocal cord. 4. Edema within the right neck may be postoperative. However, soft tissue infection cannot be entir rick excluded. 5. No soft tissue abscesses of the neck. 6. Postoperative changes of the right neck. Dictated by: Naveed Fox M.D. on 04/09/2017 at 10:45 Approved by: Naveed Fox M.D. on 04/09/2017 at 10:58
[2017-04-09] MEDS ORDERED: cefTRIAXone Inj 2,000 MG in Dextrose 5% Minibag Plus 50 ML IV ONE (12:15)
[2017-04-09] MEDS ORDERED: HYDROmorphone 1 mg/mL Inj IVPUSH ONE (12:15)
[2017-04-09] MEDS ORDERED: AMOX-366 PO (12:28)
[2017-04-09] MEDS ORDERED: PRE20 PO (12:28)
[2017-04-09] MEDS ORDERED: HYDR2TAB27 PO (12:28)
== END 2017-04-09 13:03 | disposition home or self-care (01) ==
LOC: SED 09:29
DX: K11.20 Sialoadenitis, unspecified (principal); R50.9 Fever, unspecified; I10 Essential (primary) hypertension; E78.5 Hyperlipidemia, unspecified; Z88.8 Allergy status to other drugs, medicaments and biological substances
CPT/HCPCS: 36415; 70491; 80053; 83605; 83735; 85025; 87040; 96361; 96365; 96375; 99285; J0696; J1100; J1170; J1200; J1885; J7030; Q9967